=== PATIENT | male | born 1955 | race Caucasian/White ===

== ENCOUNTER 2023-12-24 06:30 | Day surgery (SDC) | payer MEDICARE, OTHER ==
[2023-12-24] MEDS ORDERED: IOPAMIDOL-370 50ML BTL ONE (08:20)
[2023-12-24] MEDS ORDERED: LACTATED RINGERS 1,000 ML BAG ONE (08:20)
[2023-12-24] MEDS ORDERED: DEXAMETHASONE SOD PHOSPHATE 4 MG/ML 1 ML VIAL ONE (08:43)
[2023-12-24] MEDS ORDERED: ONDANSETRON 4 MG/2 ML VIAL ONE (08:44)
[2023-12-24] MEDS ORDERED: fentaNYL (PF) 50 MCG/ML 2 ML AMP ONE (09:06)
[2023-12-24] MEDS ORDERED: ROCURONIUM 10 MG/ML (5 ML VIAL) IV ONE (09:06)
[2023-12-24] MEDS ORDERED: SUCCINYLCHOLINE CHLORIDE 200 MG/10 ML VIAL IV ONE (09:06)
[2023-12-24] MEDS ORDERED: PROPOFOL 10 MG/ML 20 ML VIAL IV ONE (09:06)
[2023-12-24] MEDS ORDERED: NEOSTIGMINE 1 MG/ML 10 ML VIAL ONE (09:06)
[2023-12-24] MEDS ORDERED: GLYCOPYRROLATE 0.2 MG/ML 2 ML VIAL ONE (09:06)
[2023-12-24] MEDS ORDERED: LIDOCAINE 1% INJ 10MG/ML (20 ML MDV) ONE (09:06)
[2023-12-24] MEDS ORDERED: PHENYLEPHRINE-0.9% NACL SYG 1,000 MCG/10 ML SYRINGE ONE (09:06)
--- NOTE | 2024-01-01 15:52 | HP ---
HISTORY AND PHYSICAL DATE OF OUTPATIENT SURGERY: 12/24/2023. CHIEF COMPLAINT: Gross hematuria. HISTORY OF PRESENT ILLNESS: The patient is a 68-year-old white male with intermittent gross hematuria, which he states occurs approximately every 2 months. He has a history of urolithiasis. CT scan shows left renal atrophy, possible bilateral hydronephrosis, and right bladder wall thickening. Cystoscopy revealed a partially-obstructing prostate, along with patchy erythema. Urine cytology showed rare atypical urothelial cells. PAST MEDICAL HISTORY: Type 2 diabetes mellitus, peripheral vascular disease, bilateral DVTs, GERD, asthma, history of MRSA, congestive heart failure, hypertension, depression, hyperlipidemia. MEDICATIONS: 1. Insulin. 2. Bethanechol 25 mg t.i.d. 3. Cyclobenzaprine 10 mg t.i.d. 4. Cymbalta 60 mg daily. 5. Eliquis 5 mg b.i.d. 6. Ferrous sulfate. 7. Fish oil. 8. Gabapentin 600 mg t.i.d. 9. [place] 10/325 p.r.n. 10.Lasix 60 mg daily. 11.Lipitor 20 mg daily. 12.Metformin 500 mg b.i.d. 13.Metoprolol 50 mg daily. 14.Milk of magnesia. 15.Ozempic. 16.Plavix 75 mg daily. 17.Protonix 40 mg daily. 18.Tylenol p.r.n. ALLERGIES: Iodine and shellfish. PAST SURGICAL HISTORY: Left gkqyl-hac-metx amputation, possible UroLift procedure. FAMILY HISTORY: Noncontributory. SOCIAL HISTORY: The patient resides at [facility]. REVIEW OF SYSTEMS: CARDIOVASCULAR: Significant for high blood pressure. GENITOURINARY: Denies dysuria, significant for hematuria. PHYSICAL EXAMINATION: GENERAL: The patient is a well-developed, well-nourished white male, in no apparent distress. VITAL SIGNS: Pulse 72, respirations 16, blood pressure 124/72. CHEST: Normal respiratory effort. ABDOMEN: Soft, nontender. GENITOURINARY: Normal external genitalia. IMPRESSION: Gross hematuria. PLAN: Cystoscopy with bladder biopsies, bilateral retrograde pyelogram, possible ureteroscopy, possible ureteral stent insertion. The procedure has been reviewed in detail with the patient. He has made aware of potential risks which include anesthesia, bleeding, infection, bladder perforation, and ureteral injury. MMODL / IJN: [id number] /
--- NOTE | 2024-01-01 15:54 | OP ---
OPERATIVE REPORT DATE OF SERVICE : 12/24/2023 PREOPERATIVE DIAGNOSIS: Hematuria. POSTOPERATIVE DIAGNOSES: 1. Hematuria. 2. Hydronephrosis. PROCEDURES PERFORMED: Cystoscopy, bilateral retrograde pyelograms, left ureteral stent insertion, bladder biopsies. ANESTHESIA: General. ESTIMATED BLOOD LOSS: 10 mL. FLUIDS GIVEN: 500 mL crystalloid. COMPLICATIONS: None. SPECIMEN REMOVED: Right posterior bladder wall biopsies. OPERATIVE FINDINGS: 1. Small capacity bladder with erythema noted on the right posterior bladder wall. 2. Qysx-ys-pasppphn left hydronephrosis. Possible left proximal ureteral stricture. 3. Marked right hydroureteronephrosis, which appears to be due to a small capacity bladder and vesicoureteral reflux. INDICATIONS: The patient is a 68-year-old white male, with recent hematuria. Cystoscopy has shown bladder erythema, and he now comes for further evaluation. DESCRIPTION OF PROCEDURE: The patient was taken to the operating room and placed in the dorsal lithotomy position, with his legs supported in Iglesia stirrups. The external genitalia were prepped and draped sterilely. The 30-degree lens was used to introduce the 22-[place] Kong[place] Storz cystoscopic sheath through the urethra and into the bladder under direct vision. The anterior urethra appeared normal. The prostatic urethra was unremarkable. Upon entering the bladder, the urine was noted to be cloudy. The bladder was irrigated several times. Slight oozing of the bladder wall was noted, predominantly from the right posterior bladder wall. The bladder was not trabeculated. No tumors or calculi were seen. With difficulty, the ureteral orifices were identified. Bilateral retrograde pyelograms were performed. The left retrograde pyelogram revealed a possible left proximal ureteral stricture, as well as possible filling defects within the left renal pelvis. There was evidence of qaxs-bf-gubenzzb left hydronephrosis, and the system drained poorly. The right retrograde pyelogram showed evidence of right hydroureteronephrosis down to the ureteral orifice. The right ureteral orifice was somewhat laterally displaced, and it is felt that the right hydronephrosis is due to a combination of a small capacity bladder and vesicoureteral reflux. A 0.035 inch Glidewire was passed through the cystoscope. The left ureteral orifice was cannulated, and the Glidewire was advanced up to the left renal pelvis. After placing the Glidewire, there was a "hydronephrotic dumont" as urine drained from the left kidney. A 26 cm, 6-H[place] Konger double J ureteral stent was placed over the wire. Proper stent positioning was verified fluoroscopically and endoscopically. Using the cold cup biopsy forceps, biopsies were obtained from the area of erythema on the right posterior bladder wall. The 8-Hong Konger Bugbee electrode was used to fulgurate the biopsy sites, attaining complete hemostasis. The bladder was emptied and the cystoscope was removed. The patient tolerated the procedure well and was taken to the recovery room in stable condition. MMODL / IJN: [id number] /
--- NOTE | 2024-02-11 10:36 | FL ---
EXAMINATION TYPE: FL urography retrograde DATE OF EXAM: 01/19/2024 8:27 AM COMPARISON: Pre Operative Images if available both CT/MRI or plain film CLINICAL INDICATION: Male, 68 years old with history of SHADI RENAL STONES IN OR; TECHNIQUE: FL urography retrograde, multiple fluoroscopic images provided for procedure. Total fluoroscopy time: 76 seconds Total submitted images to PACS: 6 DAP: 15.289 mGym2 Gycm2 uGym2 cGycm2 or equivalent. FINDINGS: Fluoroscopic images during retrograde pyelogram demonstrate contrast in the renal collecting system. There is dilation of the collecting system. No evidence of extravasation of contrast. No immediate co mplication identified. IMPRESSION: 1. No evidence for intraoperative complication. 2. Please see the operative/procedural note for further details. [facility], , 02/11/2024 10:33 AM
== END 2023-12-24 13:00 ==
LOC: OR 06:30
PROVIDERS: ATTEND Urology
DX: N30.21 Other chronic cystitis with hematuria (principal); N30.01 Acute cystitis with hematuria; N13.30 Unspecified hydronephrosis; K21.9 Gastro-esophageal reflux disease without esophagitis; J45.909 Unspecified asthma, uncomplicated; I11.0 Hypertensive heart disease with heart failure; I50.9 Heart failure, unspecified; F32.A Depression, unspecified; E78.5 Hyperlipidemia, unspecified; E11.51 Type 2 diabetes mellitus with diabetic peripheral angiopathy without gangrene; Z86.718 Personal history of other venous thrombosis and embolism; Z79.02 Long term (current) use of antithrombotics/antiplatelets; Z79.84 Long term (current) use of oral hypoglycemic drugs; Z79.899 Other long term (current) drug therapy; Z86.14 Personal history of Methicillin resistant Staphylococcus aureus infection; Z88.8 Allergy status to other drugs, medicaments and biological substances; Z91.041 Radiographic dye allergy status; Z89.612 Acquired absence of left leg above knee; Z87.442 Personal history of urinary calculi
CPT/HCPCS: 74420; 88307; 88311

== ENCOUNTER 2024-01-21 09:45 | Day surgery (SDC) | payer MEDICARE, OTHER ==
--- NOTE | 2024-01-21 06:45 | P.GSHP ---
History of Present Illness H&P Date: 01/21/24 Chief Complaint: Hematuria The patient is a 68-year-old white male with a history of urolithiasis. He has recently experienced intermittent gross hematuria. A CT scan was obtained, revealing left renal atrophy, possible bilateral hydronephrosis, and right sided bladder wall thickening. Urine cytology showed rare atypical cells. Cystoscopy showed a partially obstructing prostate with patchy bladder erythema. On December 23, he underwent cystoscopy with biopsy and fulguration, showing acute and chronic cystitis. The bladder capacity appeared to be small, and retrograde pyelograms showed bilateral hydronephrosis. On the right, this was presumed to be due to vesicoureteral reflux. On the left, there appeared to be ureteral strictures. A ureteral stent was placed. The hematuria appears to have improved following that procedure. - Constitutional Constitutional: Denies chills, Denies fever - Cardiovascular Cardiovascular: Reports high blood pressure - Gastrointestinal Gastrointestinal: Reports abdominal pain - Genitourinary (Male) Genitourinary: Reports hematuria, Denies dysuria Past Medical History Past Medical History: Asthma, Blood Disorder, Heart Failure, Dementia, Diabetes Mellitus, Deep Vein Thrombosis (DVT), GERD/Reflux, Hyperlipidemia, Hypertension, Liver Disease, Osteoarthritis (OA), Vascular Disorder Additional Past Medical History / Comment(s): AAA, iron def anemia, diverticulosis, fatty liver History of Any Multi-Drug Resistant Organisms: MRSA Date of last positivie culture/infection: 2023? MDRO Source:: right leg per 12/24/23 health hx Past Surgical History: Back Surgery, Hernia Repair, Orthopedic Surgery Additional Past Surgical History / Comment(s): cystoscopy & left ureteral stent 12/24/23; left above knee amputation, left hand surg, L4-L5 repair Past Anesthesia/Blood Transfusion Reactions: No Reported Reaction Additional Past Anesthesia/Blood Transfusion Reaction / Comment(s): caregiver not aware of any anesthesia problems for pt. Smoking Status: Former smoker Medications and Allergies Home Medications Medication Instructions Recorded Confirmed Type Acetaminophen Tab [Tylenol] 325 mg PO Q6H PRN 01/18/24 01/18/24 History Apixaban [Eliquis] 5 mg PO BID 01/18/24 01/18/24 History Atorvastatin [Lipitor] 20 mg PO DAILY 01/18/24 01/18/24 History Bethanechol Chloride 25 mg PO BID 01/18/24 01/18/24 History Clopidogrel [Plavix] 75 mg PO DAILY 01/18/24 01/18/24 History Cyclobenzaprine HCl 10 mg PO TID 01/18/24 01/18/24 History DULoxetine HCL [Cymbalta] 60 mg PO DAILY 01/18/24 01/18/24 History Daily Radha 1 tab PO DAILY 01/18/24 History Ferrous Sulfate [Feosol] 325 mg PO DAILY 01/18/24 01/18/24 History Fosfomycin Tromethamine 3 gm PO DAILY 01/18/24 01/18/24 History Furosemide [Lasix] 20 mg PO DAILY 01/18/24 01/18/24 History Furosemide [Lasix] 40 mg PO QAM 01/18/24 01/18/24 History Gabapentin 600 mg PO TID 01/18/24 01/18/24 History HYDROcodone/APAP 10-325MG [[place] 1 tab PO Q8HR PRN 01/18/24 01/18/24 History 10-325] Insulin Aspart (Niacinamide) 4 units SQ TID-W/MEALS 01/18/24 01/18/24 History [Fiasp 100 Unit/ml Vial] Insulin Glargine,Hum.rec.anlog 50 unit SQ BID 01/18/24 01/18/24 History [Basaglar Kwikpen U-100] Lactobacillus Acidophilus 1 each PO DAILY 01/18/24 01/18/24 History [Acidophilus] Magnesium Hydroxide [Milk of 30 ml PO DAILY PRN 01/18/24 01/18/24 History Magnesia Concentrate] Metoprolol Succinate (ER) [Toprol 50 mg PO DAILY 01/18/24 01/18/24 History Xl] Nystatin 100,000 Unit/gm Powd 1 applic TOPICAL BID 01/18/24 01/18/24 History [Mycostatin Powder] [place]-3/Dha/Epa/Fish Oil [Fish Oil 1 each PO BID 01/18/24 01/18/24 History 1,000 mg Softgel] Pantoprazole [Protonix] 40 mg PO DAILY 01/18/24 01/18/24 History Semaglutide [Ozempic] 0.5 mg SQ FR 01/18/24 01/18/24 History Zinc Gluconate [Zinc] 50 mg PO DAILY 01/18/24 01/18/24 History clindamycin HCL 300 mg PO TID 01/18/24 01/18/24 History metFORMIN HCL 1,000 mg PO BID 01/18/24 01/18/24 History Allergies Allergy/AdvReac Type Severity Reaction Status Date / Time amoxicillin [From Augmentin] Allergy Rash/Hives Verified 01/15/24 15:23 clavulanic acid Allergy Rash/Hives Verified 01/15/24 15:23 [From Augmentin] iodine AdvReac Unknown Verified 01/15/24 15:23 shellfish derived [Shellfish] AdvReac Unknown Verified 01/15/24 15:23 bees Allergy Rash/Hives Uncoded 01/15/24 15:23 tape AdvReac Unknown Uncoded 01/15/24 15:23 Surgical - Exam - General well developed, well nourished, no distress - Respiratory normal respiratory effort - Abdomen Abdomen: soft, non tender, no guarding, no rigid, no rebound - Genitourinary normal penis with no external lesions, testicles non-tender - Psychiatric oriented to time, oriented to person, oriented to place, speech is normal, memory intact Assessment and Plan (1) Hydronephrosis with ureteral stricture, not elsewhere classified Status: Acute Code(s): N13.1 - HYDRONEPHROSIS W URETERAL STRICTURE, NEC SNOMED Code(s): 30631234 Plan: Cystoscopy, left ureteroscopy with possible balloon dilation of a ureteral stricture, left ureteral stent change or removal. The rationale for this has been reviewed with the patient. He is aware of risks, which include anesthesia, bleeding, infection, and ureteral injury.
[~2024-01-21 09:45] MED LIST: DEXAMETHASONE SOD PHOSPHATE 4 MG/ML 1 ML VIAL IV ONE; HYDROmorphone 0.5 MG/0.5 ML SYRINGE IVP PRN; droPERidol 5 MG/2 ML VIAL IVP ONE
--- NOTE | 2024-01-21 10:13 | XR ---
EXAMINATION TYPE: XR KUB DATE OF EXAM: 01/21/2024 HISTORY: Pain Comparison: None.Single KUB is submitted for interpretation. Findings: Right renal calculi: 5.8 mm calculus upper pole right kidney. Right ureteral calculi: None Visualized. Left renal calculi: None Visualized. Left ureteral calculi: Double pigtail left-sided ureteral stent in place. No definite calculus along the course of the stent. Pelvic calcifications: None Visualized. Bowel gas pattern is unremarkable. No free air. No mass effects. IMPRESSION: 1. As above
[2024-01-21 10:40] LABS: Glucose,Whole Blood 179 mg/dL (70-110)
[2024-01-21] MEDS: IV FLUID CONTINUATION 1,000 ML IV ONE (10:51)
[2024-01-21] MEDS: FAMOTIDINE 20 MG/2 ML VIAL IV STA (10:56)
[2024-01-21] MEDS: LACTATED RINGERS 1,000 ML IV SCH (10:56)
[2024-01-21] MEDS: ONDANSETRON 4 MG/2 ML VIAL IVP ONE (10:56)
[2024-01-21] MEDS: IPRATROPIUM-ALBUTEROL 3 ML NEB INHALATION STA (10:57)
[2024-01-21] MEDS: METOCLOPRAMIDE 5 MG/ML 2 ML VIAL IVP STA (10:57)
[2024-01-21] MEDS ORDERED: NEOSTIGMINE 1 MG/ML 10 ML VIAL ONE (11:42)
[2024-01-21] MEDS ORDERED: fentaNYL (PF) 50 MCG/ML 2 ML AMP ONE (11:42)
[2024-01-21] MEDS ORDERED: LIDOCAINE 1% INJ 10MG/ML (20 ML MDV) ONE (11:42)
[2024-01-21] MEDS ORDERED: GLYCOPYRROLATE 0.2 MG/ML 2 ML VIAL ONE (11:42)
[2024-01-21] MEDS ORDERED: VASOPRESSIN 20 UNIT/ML 1 ML VIAL ONE (11:42)
[2024-01-21] MEDS ORDERED: ROCURONIUM 10 MG/ML (5 ML VIAL) IV ONE (11:42)
[2024-01-21] MEDS ORDERED: SUCCINYLCHOLINE CHLORIDE 200 MG/10 ML VIAL IV ONE (11:42)
[2024-01-21] MEDS ORDERED: ePHEDrine 50 MG/ML 1 ML VIAL ONE (11:42)
[2024-01-21] MEDS ORDERED: PHENYLEPHRINE 10 MG/ML VIAL ONE (11:42)
[2024-01-21] MEDS ORDERED: PROPOFOL 10 MG/ML 20 ML VIAL IV ONE (11:42)
[2024-01-21] MEDS: LACTATED RINGERS 1,000 ML IV ONE (12:42)
[2024-01-21 13:38] VITALS: TEMP 97.5
[2024-01-21 14:30] VITALS: RESP 20
--- NOTE | 2024-01-21 14:34 | P.OP ---
Date of Procedure: 01/21/24 Preoperative Diagnosis: Left hydronephrosis, hematuria Postoperative Diagnosis: Left hydronephrosis, hematuria, left ureteral tumor Procedure(s) Performed: Cystoscopy, left ureteral stent removal, left ureteroscopy with biopsy Anesthesia: ALYSSA Surgeon: Vinay Delgado Estimated Blood Loss (ml): 5 IV fluids (ml): 1,300 Pathology: other (Biopsy left mid ureter) Condition: stable Disposition: PACU Indications for Procedure: The patient is a 68-year-old white male with a history of urolithiasis. He has recently experienced intermittent gross hematuria. A CT scan was obtained, revealing left renal atrophy, possible bilateral hydronephrosis, and right sided bladder wall thickening. Urine cytology showed rare atypical cells. Cystoscopy showed a partially obstructing prostate with patchy bladder erythema. On December 23, he underwent cystoscopy with biopsy and fulguration, showing acute and chronic cystitis. The bladder capacity appeared to be small, and retrograde pyelograms showed bilateral hydronephrosis. On the right, this was presumed to be due to vesicoureteral reflux. On the left, there appeared to be ureteral strictures. A ureteral stent was placed. The hematuria appears to have improved following that procedure. Operative Findings: Left mid ureteral lesion, question reactive versus malignant, at the level of L4. Description of Procedure: The patient was taken to the operating room and placed in the dorsolithotomy position, with legs supported in Iglesia stirrups. The external genitalia was prepped and draped sterilely. The 30 lens was used to introduce the 21-[place] Meeks cystoscopic sheath through the urethra and into the bladder under direct vision. The prostatic urethra showed evidence of mild lateral lobe enlargement. The bladder was examined in its entirety. No abnormalities were seen. Delayed healing was seen at the previous biopsy site. Grasping forceps were used to grasp the distal end of the left ureteral stent, which was removed along with the cystoscope. A 0.035 inch Glidewire was passed through the stent and up to the left renal pelvis. The stent was removed, and the Olympus flexible ureteroscope was passed over the wire, up to the left renal pelvis. Each calyx was examined. No tumors or calculi were seen. There was evidence of hydronephrosis. The ureteroscope was slowly withdrawn under direct vision. 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 Piranha forceps were passed through the ureteroscope, and the lesion was excised. The tissue was saved and sent to pathology. The ureter was then inspected. Subtle mucosal changes were seen immediately adjacent to the lesion. There was no active bleeding, and no evidence of ureteral perforation. The ureter appeared to be of normal caliber. The ureteroscope was withdrawn under direct vision, and no other abnormalities were seen. The patient tolerated the procedure well and was taken to the recovery room in stable condition.
[2024-01-21 14:57] VITALS: BP 144/74; PULSE 91
[2024-01-26 13:02] LABS: Glucose,Whole Blood 170 mg/dL (70-110)
--- NOTE | 2024-02-11 10:36 | FL ---
EXAMINATION TYPE: FL guidance operating room DATE OF EXAM: 01/21/2024 1:12 PM COMPARISON: Pre Operative Images if available both CT/MRI or plain film CLINICAL INDICATION: Male, 68 years old with history of LEFT HYDRONEPHROSIS; TECHNIQUE: FL guidance operating room, multiple fluoroscopic images provided for procedure. Total fluoroscopy time: 54 seconds Total submitted images to PACS: 1 DAP: [id number] mGym2 Gycm2 uGym2 cGycm2 or equivalent. FINDINGS: Multiple intraoperative fluoroscopic images were taken resulting in removal of left ureteral stent. N o immediate intraoperative complication. Multilevel degeneration changes throughout the spine. IMPRESSION: 1. No evidence for intraoperative complication. 2. Please see the operative/procedural note for further details. [facility], , 02/11/2024 10:33 AM
== END 2024-01-21 15:35 ==
LOC: OR 09:45
PROVIDERS: ATTEND Urology
DX: N13.1 Hydronephrosis with ureteral stricture, not elsewhere classified (principal); N28.89 Other specified disorders of kidney and ureter; R31.0 Gross hematuria; E11.9 Type 2 diabetes mellitus without complications; E78.5 Hyperlipidemia, unspecified; F03.90 Unspecified dementia, unspecified severity, without behavioral disturbance, psychotic disturbance, mood disturbance, and anxiety; I11.0 Hypertensive heart disease with heart failure; I50.9 Heart failure, unspecified; J45.909 Unspecified asthma, uncomplicated; K21.9 Gastro-esophageal reflux disease without esophagitis; K76.0 Fatty (change of) liver, not elsewhere classified; M19.90 Unspecified osteoarthritis, unspecified site; Z87.442 Personal history of urinary calculi; Z79.01 Long term (current) use of anticoagulants; Z79.02 Long term (current) use of antithrombotics/antiplatelets; Z79.4 Long term (current) use of insulin; Z79.84 Long term (current) use of oral hypoglycemic drugs; Z86.718 Personal history of other venous thrombosis and embolism; Z87.891 Personal history of nicotine dependence; Z88.0 Allergy status to penicillin; Z88.1 Allergy status to other antibiotic agents; Z88.8 Allergy status to other drugs, medicaments and biological substances; Z91.030 Bee allergy status; Z91.041 Radiographic dye allergy status; Z98.890 Other specified postprocedural states; Z79.899 Other long term (current) drug therapy
CPT/HCPCS: 88305; 74018; 52354; C1769; J0330; J2710; J2765; J0690; J2405; J2001; J3010; J3490; J2704; J2371; J1596

== ENCOUNTER 2024-11-18 04:41 | Inpatient (IN) | payer MEDICARE, OTHER ==
[2024-11-18] MEDS: NOREPINEPHRINE 32 MG in SODIUM CHLORIDE 0.9% 218 ML IV SCH (05:03)
[2024-11-18] MEDS ORDERED: VANCOMYCIN IV PER PHARMACY 1 EACH MISC MISCELLANE PRN (05:18)
[2024-11-18 05:23] LABS: Basophils # (A) 0.07 10*3/uL (0.00-0.10); Basophils % (A) 0.5 %; Eosinophils # (A) 0.00 10*3/uL (0.04-0.35); Eosinophils % (A) 0.0 %; HCT 47.1 % (39.6-50.0); HGB 15.6 g/dL (13.0-17.0); Lymphocytes # (A) 0.36 10*3/uL (0.90-5.00); Lymphocytes % (A) 2.4 %; MCH 30.5 pg (27.0-32.0); MCHC 33.1 g/dL (32.0-37.0); MCV 92.2 fL (80.0-97.0); Monocytes # (A) 0.47 10*3/uL (0.20-1.00); Monocytes % (A) 3.2 %; Neutrophils # (A) 13.81 10*3/uL (1.80-7.70); Neutrophils % (A) 93.6 %; Platelet Count 193 10*3/uL (140-440); RBC 5.11 10*6/uL (4.40-5.60); RDW 14.6 % (11.5-14.5); WBC 14.76 10*3/uL (4.50-10.00)
--- NOTE | 2024-11-18 05:32 | ED ---
General Adult HPI - General Chief complaint: Altered Mental Status Stated complaint: AMS Time Seen by Provider: 11/18/24 04:41 Source: patient, RN/MD, EMS, RN notes reviewed, old records reviewed Mode of arrival: EMS - History of Present Illness Initial comments: 69-year-old male who presents to the emergency department complaining of altered mentation. Originally presented to [facility]. He has a history of type 2 diabetes, PAD/PVD status post left AKA, hypertension, CKD with cellulitis of the right lower extremity. At outside facility, patient was diagnosed with sepsis from his right lower extremity cellulitis. He had an elevated white blood cell count, elevated lactic acid. He did present febrile. His mental status did improve after treatment however patient became hypotensive and required vasopressor therapy. Right IJ central line placed at outside facility and patient was started on norepinephrine. Presents for admission to ICU for septic shock from source of right lower extremity cellulitis. Patient was initiated on vancomycin and Zosyn at the outside facility. At the outside facility, they provided 2-1/2 L of IV fluids. Patient presents for further evaluation at this time. Is ANO x 4. - Related Data Home Medications Medication Instructions Recorded Confirmed Acetaminophen Tab [Tylenol] 325 mg PO Q6H PRN 01/18/24 01/21/24 Apixaban [Eliquis] 5 mg PO BID 01/18/24 01/21/24 Bethanechol Chloride 25 mg PO BID 01/18/24 01/21/24 Clopidogrel [Plavix] 75 mg PO DAILY 01/18/24 01/21/24 Cyclobenzaprine HCl 10 mg PO TID 01/18/24 01/21/24 Daily Radha 1 tab PO DAILY 01/18/24 01/21/24 Ferrous Sulfate [Feosol] 325 mg PO DAILY 01/18/24 01/21/24 Fosfomycin Tromethamine 3 gm PO DAILY 01/18/24 01/21/24 Furosemide [Lasix] 40 mg PO QAM 01/18/24 01/21/24 Gabapentin 600 mg PO TID 01/18/24 01/21/24 HYDROcodone/APAP 10-325MG [[place] 1 tab PO Q8HR PRN 01/18/24 01/21/24 10-325] Insulin Aspart (Niacinamide) 4 units SQ TID-W/MEALS 01/18/24 01/21/24 [Fiasp 100 Unit/ml Vial] Insulin Glargine,Hum.rec.anlog 50 unit SQ BID 01/18/24 01/21/24 [Basaglar Kwikpen U-100] Lactobacillus Acidophilus 1 each PO DAILY 01/18/24 01/21/24 [Acidophilus] Magnesium Hydroxide [Milk of 30 ml PO DAILY PRN 01/18/24 01/21/24 Magnesia Concentrate] Metoprolol Succinate (ER) [Toprol 50 mg PO DAILY 01/18/24 01/21/24 Xl] Nystatin 100,000 Unit/gm Powd 1 applic TOPICAL BID 01/18/24 01/21/24 [Mycostatin Powder] [place]-3/Dha/Epa/Fish Oil [Fish Oil 1 each PO BID 01/18/24 01/21/24 1,000 mg Softgel] Pantoprazole [Protonix] 40 mg PO DAILY 01/18/24 01/21/24 Semaglutide [Ozempic] 0.5 mg SQ FR 01/18/24 01/21/24 Zinc Gluconate [Zinc] 50 mg PO DAILY 01/18/24 01/21/24 clindamycin HCL 300 mg PO TID 01/18/24 01/21/24 metFORMIN HCL 1,000 mg PO BID 01/18/24 01/21/24 Atorvastatin [Lipitor] 20 mg PO DAILY 01/21/24 01/21/24 DULoxetine HCL [Cymbalta] 30 mg PO DAILY 01/21/24 01/21/24 Allergies Allergy/AdvReac Type Severity Reaction Status Date / Time amoxicillin [From Augmentin] Allergy Rash/Hives Verified 11/18/24 04:46 clavulanic acid Allergy Rash/Hives Verified 11/18/24 04:46 [From Augmentin] iodine AdvReac Unknown Verified 11/18/24 04:46 shellfish derived [Shellfish] AdvReac Unknown Verified 11/18/24 04:46 bees Allergy Rash/Hives Uncoded 11/18/24 04:46 tape AdvReac Unknown Uncoded 11/18/24 04:46 Review of Systems ROS Statement: Those systems with pertinent positive or pertinent negative responses have been documented in the HPI. Review of Systems: CONST: Denies fever EYES: Denies blurry vision ENT: Denies nasal congestion C/V: Denies Chest pain RESP: Denies shortness of breath GI: Denies abdominal pain : Denies dysuria SKIN: Denies rash. MSK: Endorses right leg pain NEURO: Denies headache ROS Other: All systems not noted in ROS Statement are negative. Past Medical History Past Medical History: Asthma, Blood Disorder, Heart Failure, Dementia, Diabetes Mellitus, Deep Vein Thrombosis (DVT), GERD/Reflux, Hyperlipidemia, Hypertension, Liver Disease, Osteoarthritis (OA), Vascular Disorder Additional Past Medical History / Comment(s): AAA, iron def anemia, diverticulosis, fatty liver History of Any Multi-Drug Resistant Organisms: MRSA Date of last positivie culture/infection: 2023? MDRO Source:: right leg per 12/24/23 health hx Past Surgical History: Back Surgery, Hernia Repair, Orthopedic Surgery Additional Past Surgical History / Comment(s): cystoscopy & left ureteral stent 12/24/23; left above knee amputation, left hand surg, L4-L5 repair Past Anesthesia/Blood Transfusion Reactions: No Reported Reaction Additional Past Anesthesia/Blood Transfusion Reaction / Comment(s): caregiver not aware of any anesthesia problems for pt. Past Psychological History: Anxiety, Depression Smoking Status: Former smoker General Exam - General Exam Comments Initial Comments: General: Appears in no acute distress. HEAD: Normal with no signs of head trauma. EYES: PERRLA, EOMI, conjunctiva normal, no discharge. ENT: Hearing grossly intact, normal oropharynx. RESPIRATORY: Clear breath sounds bilaterally. No wheezes, rales, or rhonchi. C/V: Regular rate and rhythm. S1 and S2 auscultated. Right lower extremity peripheral pulses reduced secondary to chronic peripheral vascular disease. ABD: Abd is soft, nontender, nondistended EXT: Right lower extremity cellulitis. Left lower extremity AKA. SKIN: Erythema with warmth and open wounds over the anterior right jansen. Suspicious for cellulitis and infection. NEURO: Alert and oriented x 4. Cranial nerves II-XII intact. No focal sensory or strength deficits. Course Vital Signs 11/18/24 11/18/24 11/18/24 04:44 05:00 05:15 Temperature 98.2 F 98.4 F Pulse Rate 98 96 96 Respiratory 22 22 20 Rate Blood Pressure 87/48 93/62 86/62 O2 Sat by Pulse 96 98 98 Oximetry 07/04/0411/18/24 11/18/24 05:30 05:45 06:00 Temperature 98.6 F Pulse Rate 97 94 92 Respiratory 20 20 20 Rate Blood Pressure 98/58 119/70 106/75 O2 Sat by Pulse 98 98 98 Oximetry 11/18/24 06:36 Temperature Pulse Rate 93 Respiratory 20 Rate Blood Pressure 90/43 O2 Sat by Pulse 98 Oximetry Medical Decision Making - Medical Decision Making Was pt. sent in by a medical professional or institution (, PA, HAND [employer]NEL [employer]ATER, urgent care, hospital, or fci...) When possible be specific @ -Patient transferred from [facility] for ICU admission. Did you speak to anyone other than the patient for history (EMS, parent, family, police, friend...)? What history was obtained from this source @ -No Did you review nursing and triage notes (agree or disagree)? Why? @ -I reviewed and agree with nursing and triage notes Were old charts reviewed (outside hosp., previous admission, EMS record, old EKG, old radiological studies, urgent care reports/EKG's, fci records)? Report findings @ -Reviewed chart from [facility] which shows the hypotension, increasing lactic acidosis, as well as findings concerning for sepsis. CT brain was obtained there which showed no obvious acute intracranial process. Chest x-ray showed no obvious acute process. CT abdomen pelvis revealed a uncompl icated AAA. Right lower extremity CT shows no evidence of osteomyelitis. Differential Diagnosis (chest pain, altered mental status, abdominal pain women, abdominal pain men, vaginal bleeding, weakness, fever, dyspnea, syncope, headache, dizziness, GI bleed, back pain, seizure, CVA, palpatations, mental health, musculoskeletal)? @ -Sepsis, septic shock, cellulitis, this list is not all-inclusive. EKG interpreted by me (3pts min.). @ -As above X-rays interpreted by me (1pt min.). @ -Chest x-ray as interpreted by myself reveals adequate placement of central line with some mild pulmonary vascular congestion versus possible left lower lung infiltrate. CT interpreted by me (1pt min.). @ -None done U/S interpreted by me (1pt. min.). @ -None done What testing was considered but not performed or refused? (CT, X-rays, U/S, labs)? Why? @ -None What meds were considered but not given or refused? Why? @ -None Did you discuss the management of the patient with other professionals (professionals i.e. DrAngel, PA, [employer]ATER, lab, RT, psych nurse, social studies teacher, digital advertising specialist, teacher, chief scientific officer, oil field caser)? Give summary @ -Discussed with ICU attending Dr. Garcia who accepted the patient to the ICU. Discussed with the admitting team, STUART RUCKER who accepted the patient. Was smoking cessation discussed for >3mins.? @ -No Was critical care preformed (if so, how long)? @ -Yes, 31 minutes. Were there social determinants of health that impacted care today? How? (Homelessness, low income, unemployed, alcoholism, drug addiction, transportation, low edu. Level, literacy, decrease access to med. care, residential, rehab)? @ -No Was there de-escalation of care discussed even if they declined (Discuss DNR or withdrawal of care, Hospice)? DNR status @ -No What co-morbidities impacted this encounter? (DM, HTN, Smoking, COPD, CAD, Cancer, CVA, ARF, Chemo, Hep., AIDS, mental health diagnosis, sleep apnea, morbid obesity)? @ -None Was patient admitted / discharged? Hospital course, mention meds given and route, prescriptions, significant lab abnormalities, going to OR and other pertinent info. @ -Patient presents for septic shock from outside facility. Started on pressors. Patient does have an allergy to amoxicillin and patient was given Zosyn at outside facility. I will switch this antibiotic to cefepime in addition to IV vancomycin. Will continue with IV fluids as well as IV Levophed. Patient will be admitted to the ICU. Patient was in agreement this plan. Vital signs remarkable for borderline blood pressures upon arrival with the Levophed on at 87/48 with maps greater than 65. Will repeat some laboratory studies. Patient in agreement this plan. EKG shows no signs of acute ischemia. Chest x-ray shows possible pneumonia versus CHF with adequate placement of the right IJ. Labs redemonstrate leukocytosis.Laboratory y studies returned remarkable also for worsening renal function with creatinine of 2.46. Magnesium is low is 1.5 which is replenished. It is elevated which is likely secondary to underlying pathology however we will trend it. Patient given 324 mg of aspirin and cardiology consulted. Echo ordered. Discussed with ICU attending Dr. Garcia who accepted the patient to the ICU. Discussed with the admitting team, Perla RUCKER who accepted the patient. Undiagnosed new problem with uncertain prognosis? @ -No Drug Therapy requiring intensive monitoring for toxicity (Heparin, Nitro, Insulin, Cardizem)? @ -No Were any procedures done? @ -No Diagnosis/symptom? @ -Septic shock secondary to right lower extremity cellulitis, NIURKA Acute, or Chronic, or Acute on Chronic? @ -Acute Uncomplicated (without systemic symptoms) or Complicated (systemic symptoms)? @ -Complicated Side effects of treatment? @ -No Exacerbation, Progression, or Severe Exacerbation? @ -No Poses a threat to life or bodily function? How? (Chest pain, USA, CT, pneumonia, PE, COPD, DKA, ARF, appy, cholecystitis, CVA, Diverticulitis, Homicidal, Suicidal, threat to staff... and all critical care pts) @ -Yes - Lab Data Result diagrams: 11/18/24 05:11 11/18/24 05:11 Lab Results 11/18/24 11/18/24 11/18/24 Range/Units 05:11 05:11 05:11 WBC 14.76 H (4.50-10.00) 10*3/uL RBC 5.11 (4.40-5.60) 10*6/uL Hgb 15.6 (13.0-17.0) g/dL Hct 47.1 (39.6-50.0) % MCV 92.2 (80.0-97.0) fL MCH 30.5 (27.0-32.0) pg MCHC 33.1 (32.0-37.0) g/dL Plt Count 193 (140-440) 10*3/uL MPV 9.5 (9.5-12.2) fL Immature Gran % (Auto) 0.3 % Neutrophils % 93.6 % Lymphocytes % 2.4 % Monocytes % 3.2 % Eosinophils % 0.0 % Basophils % 0.5 % Immature Gran # 0.05 H (0.00-0.04) 10*3/uL Neutrophils # 13.81 H (1.80-7.70) 10*3/uL Lymphocytes # 0.36 L (0.90-5.00) 10*3/uL Monocytes # 0.47 (0.20-1.00) 10*3/uL Eosinophils # 0.00 L (0.04-0.35) 10*3/uL Basophils # 0.07 (0.00-0.10) 10*3/uL Sodium 136 L (137-145) mmol/L Potassium 4.6 (3.5-5.1) mmol/L Chloride 105 (98-107) mmol/L Carbon Dioxide 22 (22-30) mmol/L Anion Gap 9 mmol/L BUN 34 H (9-20) mg/dL Creatinine 2.46 H (0.66-1.25) mg/dL Est GFR (CKD-EPI)AfAm 30 (>60 ml/min/1.73 sqM) Est GFR (CKD-EPI)NonAf 26 (>60 ml/min/1.73 sqM) Glucose 93 (74-99) mg/dL Plasma Lactic Acid Agustín 1.9 (0.7-2.0) mmol/L Calcium 9.0 (8.4-10.2) mg/dL Magnesium 1.5 L (1.6-2.3) mg/dL Total Bilirubin 0.6 (0.2-1.3) mg/dL AST 42 (17-59) U/L ALT 31 (4-49) U/L Alkaline Phosphatase 36 L (38-126) U/L Total Protein 6.3 (6.3-8.2) g/dL Albumin 3.3 L (3.5-5.0) g/dL - EKG Data -: EKG Interpreted by Me EKG Comments: 12-lead Electrocardiogram Interpretation Note EKG was reviewed and interpreted by myself. 12-lead ECG performed at 0508 is interpreted by me as revealing normal sinus rhythm at a rate of 96 beats per minute. [place] is normal. MI interval is 153 ms, QRS duration is 94 ms, QTc is 423 ms.. There were no ST or T wave abnormalities to suggest myocardial ischemia or injury. R wave progression across the precordium was satisfactory. By my interpretation this EKG is non-diagnostic for acute ischemia. Critical Care Time Critical Care Time: Yes Total Critical Care Time: 31 Disposition Clinical Impression: Septic shock, NIURKA (acute kidney injury), Cellulitis, Elevated troponin Disposition: ADMITTED IP TO THIS [facility] Condition: Serious Time of Disposition: 05:32
--- NOTE | 2024-11-18 05:34 | XR ---
EXAMINATION TYPE: XR chest 1V portable DATE OF EXAM: 11/18/2024 COMPARISON: NONE CLINICAL INDICATION: Male, 69 years old with history of sepsis, central line; TECHNIQUE: Single frontal semiupright view of the chest is obtained. FINDINGS: There is new right internal jugular central venous catheter terminating in right atrium. No pneumothorax is evident. Low lung volumes are present. There is left basilar opacity seen. The card iac silhouette size is is upper limits of normal. The osseous structures are intact. IMPRESSION: As above. [facility], Workstation: [facility], 11/18/2024 5:31 AM
[2024-11-18] MEDS ORDERED: NALOXONE 0.4 MG/ML 1 ML VIAL IV PRN (05:38)
[2024-11-18 05:57] LABS: ALT 31 U/L (4-49); AST 42 U/L (17-59); African American GFR (CKD) 30 (>60 ml/min/1.73 sqM); Albumin 3.3 g/dL (3.5-5.0); Alkaline Phosphatase 36 U/L (38-126); Anion Gap 9 mmol/L; Blood Urea Nitrogen 34 mg/dL (9-20); Calcium 9.0 mg/dL (8.4-10.2); Carbon Dioxide 22 mmol/L (22-30); Chloride 105 mmol/L (98-107); Glucose 93 mg/dL (74-99); Magnesium 1.5 mg/dL (1.6-2.3); Non-African American GFR(CKD) 26 (>60 ml/min/1.73 sqM); Potassium 4.6 mmol/L (3.5-5.1); Sodium 136 mmol/L (137-145); Total Protein 6.3 g/dL (6.3-8.2)
[2024-11-18] MEDS: CEFEPIME 2 GM in SODIUM CHLORIDE 0.9% 100 ML IVPB ONE (05:58)
[2024-11-18] MEDS: VANCOMYCIN 1,500 MG in SODIUM CHLORIDE 0.9% 500 ML 500 ML IVPB ONE (06:03)
[2024-11-18] MEDS: CEFEPIME 1 GM in SODIUM CHLORIDE 0.9% 50 ML IVPB SCH ×2 (06:18→06:38)
[2024-11-18] MEDS: LACTATED RINGERS 1,000 ML IV SCH (06:19)
[2024-11-18] MEDS: MAGNESIUM SULFATE-D5W PMX 1 GM in DEXTROSE/WATER 1 100ML.BAG IVPB ONE (07:02)
[2024-11-18] MEDS: ASPIRIN 81 MG PO STA (07:43)
[2024-11-18] MEDS: MORPHINE SULFATE 2 MG/ML SYRINGE IV PRN (07:43)
[2024-11-18] MEDS ORDERED: CEFEPIME 2 GM in SODIUM CHLORIDE 0.9% 100 ML IVPB SCH (08:00)
[2024-11-18] MEDS ORDERED: ARTIFICIAL TEARS-HYPROMELLOSE DROPS 15 ML BTL BOTH EYES PRN (11:39)
[2024-11-18] MEDS ORDERED: DEXTROSE 50% SYRINGE 50 ML IVP PRN ×2 (11:44)
[2024-11-18 12:21] LABS: Glucose,Whole Blood 261 mg/dL (70-110)
--- NOTE | 2024-11-18 12:29 | P.CNPUL ---
History of Present Illness Consult date: 11/18/24 Requesting physician: Malvin Warner Reason for consult: other Chief complaint: Sepsis. History of present illness: Pulmonary consult dated November 18, 2024. 69-year-old male seen today in the emergency department, room 6. The patient was transferred down from an outside hospital. He apparently came in with weakness, mental status changes, and possible sepsis. He apparently has a history of diabetes, peripheral vascular disease, with a left AKA, hypertension, chronic kidney disease, and cellulitis of the right lower extremity. He apparently was seen at the outside facility and diagnosed with sepsis secondary to right lower extremity cellulitis. The patient's white count was elevated as well as his lactic acid. The patient became hypotensive, and was transferred down to this institution. A central line was placed. In the emergency department, he is currently on 2 L, with a saturation 98%. He is getting lactated Ringer's at 130 cc an hour, he is currently on cefepime and vancomycin, and is getting norepinephrine at 0.04 mcg/kg/min. White count is 14.8, hemoglobin 15.6, macro 47.1, platelet count 193,000. Sodium 136, potassium 4.6, chlorides 105, CO2 22, anion gap 9, BUN 34, and creatinine 2.46. Glucose is 261. Troponins were 0.116 and 0.080. Chest x-ray shows a properly placed central line, and a possible infiltrate or atelectasis at the left base. Review of Systems REVIEW OF SYSTEMS: Mental status changes. CONSTITUTIONAL: Weakness. NEUROLOGIC: [ Negative.] HEENT: [ Negative.] CARDIAC: Hypotension. PULMONARY: [Negative.] GI: [Negative.] : [Negative.] RHEUMATOLOGIC: [ Negative.] IMMUNOLOGIC: [ Negative.] ENDOCRINE: [Negative. ] DERMATOLOGIC: [Negative.] Past Medical History Past Medical History: Asthma, Blood Disorder, Heart Failure, Dementia, Diabetes Mellitus, Deep Vein Thrombosis (DVT), GERD/Reflux, Hyperlipidemia, Hypertension, Liver Disease, Osteoarthritis (OA), Vascular Disorder Additional Past Medical History / Comment(s): AAA, iron def anemia, diverticulosis, fatty liver History of Any Multi-Drug Resistant Organisms: MRSA Date of last positivie culture/infection: 2023? MDRO Source:: right leg per 12/24/23 health hx Past Surgical History: Back Surgery, Hernia Repair, Orthopedic Surgery Additional Past Surgical History / Comment(s): cystoscopy & left ureteral stent 12/24/23; left above knee amputation, left hand surg, L4-L5 repair Past Anesthesia/Blood Transfusion Reactions: No Reported Reaction Additional Past Anesthesia/Blood Transfusion Reaction / Comment(s): caregiver not aware of any anesthesia problems for pt. Past Psychological History: Anxiety, Depression Smoking Status: Former smoker Medications and Allergies Home Medications Medication Instructions Recorded Confirmed Type Acetaminophen Tab [Tylenol] 650 mg PO BID@1200,209901/18/24 11/18/24 History Apixaban [Eliquis] 5 mg PO BID@1200,1700 01/18/24 11/18/24 History Bethanechol Chloride 25 mg PO TID@1100,1700,209901/18/24 11/18/24 History Clopidogrel [Plavix] 75 mg PO DAILY@1200 01/18/24 11/18/24 History Daily Radha 1 tab PO DAILY 01/18/24 11/18/24 History Ferrous Sulfate [Feosol] 325 mg PO DAILY 01/18/24 11/18/24 History Furosemide [Lasix] 40 mg PO DAILY@1200 01/18/24 11/18/24 History Gabapentin 600 mg PO BID@1100,17001/18/24 11/18/24 History HYDROcodone/APAP 10-325MG [[place] 1 tab PO Q8HR PRN 01/18/24 11/18/24 History 10-325] Insulin Aspart (Niacinamide) 4 units SQ TID@1100,1700,209901/18/24 11/18/24 History [Fiasp 100 Unit/ml Vial] Magnesium Hydroxide [Milk of 30 ml PO DAILY PRN 01/18/24 11/18/24 History Magnesia Concentrate] Metoprolol Succinate (ER) [Toprol 50 mg PO DAILY@109901/18/24 11/18/24 History Xl] [place]-3/Dha/Epa/Fish Oil [Fish Oil 1 cap PO BID@1200,209901/18/24 11/18/24 History 1,000 mg Softgel] Pantoprazole [Protonix] 40 mg PO DAILY@1100 01/18/24 11/18/24 History Semaglutide [Ozempic] 0.5 mg SQ FR@169901/18/24 11/18/24 History Zinc Gluconate [Zinc] 50 mg PO DAILY@1200 01/18/24 11/18/24 History metFORMIN HCL 1,000 mg PO BID@1200,1700 01/18/24 11/18/24 History Acetaminophen [Tylenol] 650 mg PO Q4H PRN 11/18/24 11/18/24 History Biotene Dry Mouth/Throat Lozenge 1 lozenge PO DIRECTED PRN 11/18/24 11/18/24 History Dextran/Hypromellose/Glycerin 1 drop BOTH EYES Q2H PRN 11/18/24 11/18/24 History [Genteal Tears 0.1%-0.2%-0.3%] Eucerin Plus Lotion 1 applic TOPICAL BID 11/18/24 11/18/24 History Fenofibrate Nanocrystallized 145 mg PO HS 11/18/24 11/18/24 History [Tricor] Furosemide [Lasix] 20 mg PO DAILY@1700 11/18/24 11/18/24 History Insulin Degludec [Insulin Degludec 65 units SQ BID@1200,199911/18/24 11/18/24 History Pen (U-100)] Melatonin 5 mg PO HS 11/18/24 11/18/24 History Menthol [Biofreeze] 1 applic TOPICAL Q8H PRN 11/18/24 11/18/24 History carvediloL [Coreg] 6.25 mg PO BID@1200,1700 11/18/24 11/18/24 History Allergies Allergy/AdvReac Type Severity Reaction Status Date / Time bee venom protein (honey bee) Allergy Unknown Unknown Verified 11/18/24 10:31 amoxicillin [From Augmentin] Allergy Rash/Hives Verified 11/18/24 10:31 clavulanic acid Allergy Rash/Hives Verified 11/18/24 10:31 [From Augmentin] iodine Allergy Unknown Verified 11/18/24 10:31 shellfish derived [Shellfish] Allergy Unknown Verified 11/18/24 10:31 tape Allergy Unknown Uncoded 11/18/24 10:31 Physical Exam Osteopathic Statement: *. No significant issues noted on an osteopathic structural exam other than those noted in the History and Physical/Consult. Vitals: Vital Signs Temp Pulse Resp BP Pulse Ox 11/18/24 11:22 94 18 121/70 96 11/18/24 10:53 93 18 126/68 96 11/18/24 10:17 97.8 F 93 20 123/62 96 11/18/24 10:00 96 18 140/80 96 11/18/24 09:00 97 18 115/59 96 11/18/24 08:00 93 18 111/58 96 11/18/24 07:20 96 18 109/61 96 11/18/24 06:36 93 20 90/43 98 11/18/24 06:00 98.6 F 92 20 106/75 98 11/18/24 05:45 94 20 119/70 98 11/18/24 05:30 97 20 98/58 98 11/18/24 05:15 98.4 F 96 20 86/62 98 11/18/24 05:00 96 22 93/62 98 11/18/24 04:44 98.2 F 98 22 87/48 96 Intake and Output 11/17/24 11/18/24 11/18/24 22:59 06:59 14:59 Intake Total 2.077 7.830 Balance 2.077 7.830 Intake: Intake, IV Titration 2.077 7.830 Amount Norepinephrine 32 mg In 2.077 7.830 Sodium Chloride 0.9% 218 ml @ 0.03 MCG/KG/MIN 1.34 mls/hr IV .Q24H COUNT INCLUDES THE [facility] Rx#: [id number] Other: Weight 95.254 kg No acute distress, confused, rambling on, currently on 2 L nasal cannula. Speech is a bit garbled. Patient not able to give much history. HEENT examination is grossly unremarkable. Mucous membranes are moist. No oral lesions. Neck supple. Full range of motion. No adenopathy thyromegaly or neck vein distention. Right internal jugular central line. Cardiovascular examination reveals regular rhythm rate. S1-S2 normal. No S3 or S4. No discernible murmur noted. Heart sounds are distant. Lungs reveal clear breath sounds. Breath sounds are equal bilaterally. No adventitious lung sounds including wheezes rhonchi or crackles. Abdomen soft bowel sounds are heard. No masses or tenderness. Extremities are intact. No cyanosis clubbing or edema. Left epyjp-eag-fqks amputation. Right lower extremity cellulitis. Skin is without rash or lesion. Neurologic examination is brief but nonfocal. Results - Laboratory Findings CBC and BMP: 11/18/24 05:11 11/18/24 05:11 Abnormal lab findings: Abnormal Labs 11/18/24 11/18/24 11/18/24 05:11 05:11 05:40 WBC 14.76 H Immature Gran # 0.05 H Neutrophils # 13.81 H Lymphocytes # 0.36 L Eosinophils # 0.00 L Sodium 136 L BUN 34 H Creatinine 2.46 H POC Glucose (mg/dL) Magnesium 1.5 L Alkaline Phosphatase 36 L Troponin I 0.116 H* Albumin 3.3 L 11/18/24 11/18/24 09:34 12:19 WBC Immature Gran # Neutrophils # Lymphocytes # Eosinophils # Sodium BUN Creatinine POC Glucose (mg/dL) 261 H Magnesium Alkaline Phosphatase Troponin I 0.080 H* Albumin - Diagnostic Findings Chest x-ray: image reviewed Assessment and Plan Assessment: Right lower extremity cellulitis, with resultant sepsis, and hypotension. History of congestive heart failure. History of hypertension. History of hyperlipidemia. History of diabetes mellitus. History of dementia. History of deep vein thrombosis. Left acstg-upd-esgu amputation. Diverticular disease. Prior history of methicillin-resistant Staph aureus infection. Multiple other medical problems and comorbidities. Plan: Plan dated November 18, 2024. The patient is seen in the emergency department, room 6. The patient is currently on norepinephrine at 0.04 mcg/kg/min. He was started on cefepime and vancomycin. He is on 2 L, with saturations of 98%. He is getting lactated Ringer's at 130 cc an hour. All labs, x-rays, and medications are reviewed. We will continue to follow the patient, make recommendations along the way. The patient will be admitted to the ICU, for further monitoring and management. Prognosis is guarded. Dictation was produced using [employer] software. Please excuse any grammatical, word or spelling errors. Time with Patient: Greater than 30
[2024-11-18] MEDS: ZINC SULFATE 220 MG CAP PO SCH (12:52)
[2024-11-18] MEDS: CLOPIDOGREL 75 MG TAB PO SCH (12:52)
[2024-11-18] MEDS: APIXABAN 5 MG TAB PO SCH (12:52)
[2024-11-18] MEDS: HYDROcodone/APAP 10-325MG 1 EACH TAB PO PRN (12:52)
[2024-11-18] MEDS: INSULIN GLARGINE (LANTUS) 100 UNIT/ML SYR SQ SCH (12:53)
[2024-11-18] MEDS: INSULIN LISPRO (HumaLOG) 100 UNIT/ML 10 mL VL SQ SCH (12:53)
[2024-11-18 17:16] LABS: Glucose,Whole Blood 194 mg/dL (70-110)
[2024-11-18] MEDS: ACETAMINOPHEN TAB 325 MG TAB PO PRN (18:07)
[2024-11-18] MEDS: BETHANECHOL 25 MG TAB PO SCH (18:08)
--- NOTE | 2024-11-18 18:09 | CA ---
Transthoracic Echo Report Name: Cullen Campos Age: 69 Gender: M : 1955 Exam Date: 11/18/2024 08:33 Exam Location: [facility] Ht (in): 70 Wt (lb): 210 Ordering Physician: Elio Blevins MD Attending/Referring Phys: Clerical Stock Inspector Quan Tong RDCS Procedure CPT: Indications: sepsis, elevated troponin Cardiac Hx: done by Lindsey Rueda Technical Quality: Technically difficult study Contrast 1: Definity Total Dose (mL): 2 Contrast 2: Total Dose (mL): MEASUREMENTS (Male / Female) Normal Values 2D ECHO LV Diastolic Diameter PLAX 4.9 cm 4.2 - 5.9 / 3.9 - 5.3 cm LV Systolic Diameter PLAX 4.2 cm IVS Diastolic Thickness 1.1 cm 0.6 - 1.0 / 0.6 - 0.9 cm LVPW Diastolic Thickness 1.1 cm 0.6 - 1.0 / 0.6 - 0.9 cm LV Relative Wall Thickness 0.5 RV Internal Dim ED PLAX 3.1 cm LVOT Diameter 2.3 cm LA Systolic Diameter LX 3.2 cm 3.0 - 4.0 / 2.7 - 3.8 cm LV Diastolic Volume MOD BP 127.6 cm??? 67 - 155 / 56 - 104 cm??? LV Systolic Volume MOD BP 70.6 cm??? 22 - 58 / 19 - 49 cm??? LV Ejection Fraction MOD BP 44.7 % >= 55 % LV Cardiac Index MOD BP 2419.1 cm???/min???m??? LV Diastolic Volume MOD 4C 114.5 cm??? LV Systolic Volume MOD 4C 66.6 cm??? LV Ejection Fraction MOD 4C 41.9 % LV Cardiac Index MOD 4C 2032.0 cm???/min???m??? LV Diastolic Length 4C 8.5 cm LV Systolic Length 4C 8.1 cm LV Diastolic Volume MOD 2C 129.9 cm??? LV Systolic Volume MOD 2C 74.5 cm??? LV Ejection Fraction MOD 2C 42.7 % LV Cardiac Index MOD 2C 2350.9 cm???/min???m??? LV Diastolic Length 2C 9.4 cm LV Systolic Length 2C 8.1 cm LA Volume 43.6 cm??? 18 - 58 / 22 - 52 cm??? LA Volume Index 19.9 cm???/m??? 16 - 28 cm???/m??? M-MODE Aortic Root Diameter MM 4.0 cm AV Cusp Separation MM 2.5 cm DOPPLER AV Peak Velocity 98.9 cm/s AV Peak Gradient 3.9 mmHg LVOT Peak Velocity 76.1 cm/s LVOT Peak Gradient 2.3 mmHg AV Area Cont Eq pk 3.2 cm??? MV Area PHT 7.9 cm??? Mitral E Point Velocity 82.2 cm/s Mitral A Point Velocity 81.4 cm/s Mitral E to A Ratio 1.0 MV Deceleration Time 96.1 ms FINDINGS Left Ventricle Left ventricular ejection fraction is estimated at 40-45 %. Mildly increased septal wall thickness. Mildly increased left ventricular systolic volume. Moderately decreased left ventricular ejection fraction. Noted regional wall motion abnormalities. Right Ventricle Right ventricular dilatation. Hypokinetic right ventricular free wall. Right Atrium Normal right atrial size. No right atrial thrombus or mass seen. Left Atrium Normal left atrial size. No left atrial thrombus or mass present. Mitral Valve Thickened mitral valve without stenosis. Trace to mild mitral regurgitation. Mitral annular calcification. Aortic Valve Trileaflet aortic valve.thickened aortic valve without stenosis. No aortic regurgitation. Tricuspid Valve Tricuspid valve not well visualized. No tricuspid regurgitation. Pulmonic Valve Pulmonic valve not well visualized. No pulmonic regurgitation. Pericardium No pericardial or pleural effusion. Echo free space anterior to the right ventricle likely represents a fat pad. Aorta Mild aortic dilatation at the level of the sinuses of valsalva (root). Normal proximal ascending aorta. CONCLUSIONS Reason: Abnormal troponins Reduced LV systolic function ejection fraction 40 to 45% Mildly enlarged right ventricle Previewed by: Dr. Abran Uribe MD (Electronically Signed) Final Date: 18 November 2024 18:08
[2024-11-18 20:01] LABS: Glucose,Whole Blood 223 mg/dL (70-110)
[2024-11-18] MEDS: FENOFIBRATE 160 MG TAB PO SCH (20:21)
[2024-11-18] MEDS: MELATONIN 5 MG TABLET PO SCH (20:21)
--- NOTE | 2024-11-18 23:00 | P.CONS ---
History of Present Illness - Reason for Consult Consult date: 11/18/24 Septic shock, cellulitis Requesting physician: Elio Blevins - Chief Complaint Right leg pain swelling redness x days - History of Present Illness Patient is a 69-year-old male with a past medical history significant for Asthma, Blood Disorder, Heart Failure, Dementia, Diabetes Mellitus, Deep Vein Thrombosis (DVT), GERD/Reflux, Hyperlipidemia, Hypertension, Liver Disease, Osteoarthritis (OA), Vascular Disorder previous history of left rbzmk-sji-tbrf amputation has been brought to the hospital for evaluation of altered mentation patient initially presented to [facility] concerning for increasing swelling redness of the right lower extremity patient has been diagnosed with sepsis from right lower leg cellulitis as the patient did have a fever elevated white count elevated lactic acid patient did have a double-lumen right IJ catheter placement at that facility subsequently patient be transferred to the hospital for further evaluation on presentation this visit the patient was afebrile no fever Hemoccult subsequently patient was tachycardic but not hypotensive mildly hypoxic currently on a 2 L nasal cannula oxygen patient did have a elevated white count 14.76 did have elevated BUN and creatinine troponin is mildly elevated patient has been started on cefepime and vancomycin infectious disease was consulted for further management of antibiotic therapy patient was not a very good historian however has been complaining of some swelling redness pain to the right leg that has been going on for more than a week. Denies any history of any trauma pain is mostly dull aching mild to moderate intense without radiation denies any skin breakdown or any drainage and no fall Review of Systems Positive point and negatives has been mentioned in the HPI, complete review of systems was performed and all other systems are negative Past Medical History Past Medical History: Asthma, Blood Disorder, Heart Failure, Dementia, Diabetes Mellitus, Deep Vein Thrombosis (DVT), GERD/Reflux, Hyperlipidemia, Hypertension, Liver Disease, Osteoarthritis (OA), Vascular Disorder Additional Past Medical History / Comment(s): AAA, iron def anemia, diverticulosis, fatty liver History of Any Multi-Drug Resistant Organisms: MRSA Year Discovered:: 2023? MDRO Source:: right leg per 12/24/23 health hx Past Surgical History: Back Surgery, Hernia Repair, Orthopedic Surgery Additional Past Surgical History / Comment(s): cystoscopy & left ureteral stent 12/24/23; left above knee amputation, left hand surg, L4-L5 repair Past Anesthesia/Blood Transfusion Reactions: No Reported Reaction Additional Past Anesthesia/Blood Transfusion Reaction / Comm: caregiver not aware of any anesthesia problems for pt. Past Psychological History: Anxiety, Depression Smoking Status: Former smoker Medications and Allergies Home Medications Medication Instructions Recorded Confirmed Type Acetaminophen Tab [Tylenol] 650 mg PO BID@1200,209901/18/24 11/18/24 History Apixaban [Eliquis] 5 mg PO BID@1200,169901/18/24 11/18/24 History Bethanechol Chloride 25 mg PO TID@1100,170,209901/18/24 11/18/24 History Clopidogrel [Plavix] 75 mg PO DAILY@119901/18/24 11/18/24 History Daily Radha 1 tab PO DAILY 01/18/24 11/18/24 History Ferrous Sulfate [Feosol] 325 mg PO DAILY 01/18/24 11/18/24 History Furosemide [Lasix] 40 mg PO DAILY@119901/18/24 11/18/24 History Gabapentin 600 mg PO BID@1100,169901/18/24 11/18/24 History HYDROcodone/APAP 10-325MG [[place] 1 tab PO Q8HR PRN 01/18/24 11/18/24 History 10-325] Insulin Aspart (Niacinamide) 4 units SQ TID@1100,170,209901/18/24 11/18/24 History [Fiasp 100 Unit/ml Vial] Magnesium Hydroxide [Milk of 30 ml PO DAILY PRN 01/18/24 11/18/24 History Magnesia Concentrate] Metoprolol Succinate (ER) [Toprol 50 mg PO DAILY@109901/18/24 11/18/24 History Xl] [place]-3/Dha/Epa/Fish Oil [Fish Oil 1 cap PO BID@1200,209901/18/24 11/18/24 History 1,000 mg Softgel] Pantoprazole [Protonix] 40 mg PO DAILY@109901/18/24 11/18/24 History Semaglutide [Ozempic] 0.5 mg SQ FR@169901/18/24 11/18/24 History Zinc Gluconate [Zinc] 50 mg PO DAILY@119901/18/24 11/18/24 History metFORMIN HCL 1,000 mg PO BID@1200,169901/18/24 11/18/24 History Acetaminophen [Tylenol] 650 mg PO Q4H PRN 11/18/24 11/18/24 History Biotene Dry Mouth/Throat Lozenge 1 lozenge PO DIRECTED PRN 11/18/24 11/18/24 History Dextran/Hypromellose/Glycerin 1 drop BOTH EYES Q2H PRN 11/18/24 11/18/24 History [Genteal Tears 0.1%-0.2%-0.3%] Eucerin Plus Lotion 1 applic TOPICAL BID 11/18/24 11/18/24 History Fenofibrate Nanocrystallized 145 mg PO HS 11/18/24 11/18/24 History [Tricor] Furosemide [Lasix] 20 mg PO DAILY@1700 11/18/24 11/18/24 History Insulin Degludec [Insulin Degludec 65 units SQ BID@1200,2000 11/18/24 11/18/24 H istory Pen (U-100)] Melatonin 5 mg PO HS 11/18/24 11/18/24 History Menthol [Biofreeze] 1 applic TOPICAL Q8H PRN 11/18/24 11/18/24 History carvediloL [Coreg] 6.25 mg PO BID@1200,1700 11/18/24 11/18/24 History Allergies Allergy/AdvReac Type Severity Reaction Status Date / Time bee venom protein (honey bee) Allergy Unknown Unknown Verified 11/18/24 10:31 amoxicillin [From Augmentin] Allergy Rash/Hives Verified 11/18/24 10:31 clavulanic acid Allergy Rash/Hives Verified 11/18/24 10:31 [From Augmentin] iodine Allergy Unknown Verified 11/18/24 10:31 shellfish derived [Shellfish] Allergy Unknown Verified 11/18/24 10:31 tape Allergy Unknown Uncoded 11/18/24 10:31 Physical Exam Vitals: Vital Signs Temp Pulse Resp BP Pulse Ox 11/18/24 11:22 94 18 121/70 96 11/18/24 10:53 93 18 126/68 96 11/18/24 10:17 97.8 F 93 20 123/62 96 11/18/24 10:00 96 18 140/80 96 11/18/24 09:00 97 18 115/59 96 11/18/24 08:00 93 18 111/58 96 11/18/24 07:20 96 18 109/61 96 11/18/24 06:36 93 20 90/43 98 11/18/24 06:00 98.6 F 92 20 106/75 98 11/18/24 05:45 94 20 119/70 98 11/18/24 05:30 97 20 98/58 98 11/18/24 05:15 98.4 F 96 20 86/62 98 11/18/24 05:00 96 22 93/62 98 11/18/24 04:44 98.2 F 98 22 87/48 96 Intake and Output 11/17/24 11/18/24 11/18/24 22:59 06:59 14:59 Intake Total 2.077 7.830 Balance 2.077 7.830 Intake: Intake, IV Titration 2.077 7.830 Amount Norepinephrine 32 mg In 2.077 7.830 Sodium Chloride 0.9% 218 ml @ 0.03 MCG/KG/MIN 1.34 mls/hr IV .Q24H [facility] Rx#: [id number] Other: Weight 95.254 kg GENERAL DESCRIPTION: Elderly male lying in bed, no distress. No tachypnea or ac cessory muscle of respiration use. HEENT: Shows Pallor , no scleral icterus. Oral mucous membrane is dry. NECK: Trachea central, no thyromegaly. LUNGS: Unlabored breathing. Clear to auscultation anteriorly. No wheeze or crackle. HEART: S1, S2, regular rate and rhythm. No loud murmur ABDOMEN: Soft, no tenderness , guarding or rigidity, no organomegaly EXTREMITIES: Right lower extremity diffuse swelling and redness no skin breakdown or purulent drainage was noticed SKIN: No rash, no masses palpable. NEUROLOGICAL: The patient is awake, alert, mood and affect normal. Results CBC & Chem 7: 11/19/24 06:21 11/19/24 06:21 Labs: Abnormal Lab Results - Last 24 Hours (Table) 11/18/24 11/18/24 11/18/24 Range/Units 05:11 05:11 05:40 WBC 14.76 H (4.50-10.00) 10*3/uL Immature Gran # 0.05 H (0.00-0.04) 10*3/uL Neutrophils # 13.81 H (1.80-7.70) 10*3/uL Lymphocytes # 0.36 L (0.90-5.00) 10*3/uL Eosinophils # 0.00 L (0.04-0.35) 10*3/uL Sodium 136 L (137-145) mmol/L BUN 34 H (9-20) mg/dL Creatinine 2.46 H (0.66-1.25) mg/dL Magnesium 1.5 L (1.6-2.3) mg/dL Alkaline Phosphatase 36 L (38-126) U/L Troponin I 0.116 H* (0.000-0.034) ng/mL Albumin 3.3 L (3.5-5.0) g/dL 11/18/24 Range/Units 09:34 WBC (4.50-10.00) 10*3/uL Immature Gran # (0.00-0.04) 10*3/uL Neutrophils # (1.80-7.70) 10*3/uL Lymphocytes # (0.90-5.00) 10*3/uL Eosinophils # (0.04-0.35) 10*3/uL Sodium (137-145) mmol/L BUN (9-20) mg/dL Creatinine (0.66-1.25) mg/dL Magnesium (1.6-2.3) mg/dL Alkaline Phosphatase (38-126) U/L Troponin I 0.080 H* (0.000-0.034) ng/mL Albumin (3.5-5.0) g/dL Assessment and Plan (1) Sepsis Current Visit: Yes Status: Acute Code(s): A41.9 - SEPSIS, UNSPECIFIED ORGANISM SNOMED Code(s): 97255267 (2) Cellulitis of right leg Current Visit: Yes Status: Acute Code(s): L03.115 - CELLULITIS OF RIGHT LOWER LIMB SNOMED Code(s): 58465303491573271 (3) Penicillin allergy Current Visit: Yes Status: Acute Code(s): Z88.0 - ALLERGY STATUS TO PENICILLIN SNOMED Code(s): 32537182 (4) Elevated serum creatinine Current Visit: Yes Status: Acute Code(s): R79.89 - OTHER SPECIFIED ABNORMAL FINDINGS OF BLOOD CHEMISTRY SNOMED Code(s): 594462652 Plan: 1patient presented to hospital with sepsis in this patient who did have fever tachycardia elevated white count elevated lactic acid meeting currently for SIRS/sepsis source likely right lower extremity cellulitis in this patient did have a history of left lower extremity infection requiring left kyfst-rlf-ojmn amputation will need to cover for the resistant gram-positive as well as gram- negative pathogen 2-patient did have penicillin allergy that will limit the number of antibiotics safe to use 3-elevated creatinine high risk of nephrotoxicity. 4-patient is currently being treated cefepime and vancomycin however will monitor his kidney function closely and if any worsening we will switch him over to daptomycin We will follow on clinical condition and cultures to further adjust medication if needed Thank you for this consultation we will follow the patient along with you Dictation was produced using [employer] dictation software. please excuse any grammatical, word or spelling errors. Time with Patient: Greater than 30
[2024-11-19] MEDS: ACETAMINOPHEN IV (For NPO) 1,000 MG in EMPTY BAG 1 BAG IVPB PRN (00:08)
[2024-11-19 06:02] LABS: Glucose,Whole Blood 109 mg/dL (70-110)
[2024-11-19 07:31] LABS: Glucose,Whole Blood 115 mg/dL (70-110)
[2024-11-19 07:37] LABS: Basophils # (A) 0.04 10*3/uL (0.00-0.10); Basophils % (A) 0.4 %; Eosinophils # (A) 0.14 10*3/uL (0.04-0.35); Eosinophils % (A) 1.5 %; HCT 34.4 % (39.6-50.0); Lymphocytes # (A) 0.86 10*3/uL (0.90-5.00); Lymphocytes % (A) 9.1 %; MCH 30.4 pg (27.0-32.0); MCHC 32.6 g/dL (32.0-37.0); MCV 93.2 fL (80.0-97.0); Monocytes # (A) 0.41 10*3/uL (0.20-1.00); Monocytes % (A) 4.4 %; Neutrophils # (A) 7.93 10*3/uL (1.80-7.70); Neutrophils % (A) 84.3 %; Platelet Count 253 10*3/uL (140-440); RBC 3.69 10*6/uL (4.40-5.60); RDW 15.1 % (11.5-14.5); WBC 9.41 10*3/uL (4.50-10.00)
[2024-11-19 07:38] LABS: HGB 11.2 g/dL (13.0-17.0)
[2024-11-19] MEDS: FUROSEMIDE 10 MG/ML 4 ML VIAL IV STA (07:40)
[2024-11-19 07:58] LABS: ALT 35 U/L (4-49); AST 47 U/L (17-59); African American GFR (CKD) 43 (>60 ml/min/1.73 sqM); Albumin 3.4 g/dL (3.5-5.0); Alkaline Phosphatase 48 U/L (38-126); Anion Gap 10 mmol/L; Blood Urea Nitrogen 25 mg/dL (9-20); Calcium 9.0 mg/dL (8.4-10.2); Carbon Dioxide 19 mmol/L (22-30); Chloride 106 mmol/L (98-107); Glucose 99 mg/dL (74-99); Non-African American GFR(CKD) 38 (>60 ml/min/1.73 sqM); Potassium 4.5 mmol/L (3.5-5.1); Sodium 135 mmol/L (137-145); Total Protein 6.5 g/dL (6.3-8.2)
--- NOTE | 2024-11-19 08:27 | XR ---
EXAMINATION TYPE: XR chest 1V portable DATE OF EXAM: 11/19/2024 COMPARISON: 11/18/2024 CLINICAL INDICATION: Male, 69 years old with history of Resp distress; TECHNIQUE: Single frontal view of the chest is obtained. FINDINGS: There is significant interval worsening in the diffuse predominantly interstitial opacity w ith mild cardiomegaly. Findings are most consistent with worsening CHF. There is no large pleural effusion. There is no pneumothorax. There is no change in the right jugular central venous catheter tip. The osseous structures are intact. IMPRESSION: Interval worsening in the acute cardiopulmonary process most consistent with CHF [facility], , 11/19/2024 8:25 AM
[2024-11-19] MEDS: hydrALAZINE HCL 20 MG/ML 1 ML VIAL IVP PRN (08:28)
[2024-11-19 08:36] LABS: ABG HCO3 23 mmol/L (21-25); ABG PCO2 52 mmHg (35-45); ABG PH 7.26 (7.35-7.45); ABG PO2 66 mmHg (83-108); ABG TCO2 25 mmol/L (19-24); Allen Test Performed? Yes
[2024-11-19] MEDS: VANCOMYCIN 1,500 MG in SODIUM CHLORIDE 0.9% 500 ML 500 ML IVPB ONE (08:41)
--- NOTE | 2024-11-19 09:08 | XR ---
Abdomen HISTORY: Decreased bowel sounds abdominal distention. COMPARISON: None TECHNIQUE: 2 supine views of the abdomen were obtained. FINDINGS: The bowel gas pattern is nonspecific and there is no evidence of obstruction. There are no suspicious abdominal or pelvic calcifications. The osseous structures are grossly intact. There is degenerative there is mild multilevel degenerativ e disease in the lumbar spine. IMPRESSION: Nonspecific abdomen without evidence of obstruction. [facility], , 11/19/2024 9:06 AM
--- NOTE | 2024-11-19 11:07 | P.PN ---
Subjective Progress Note Date: 11/19/24 Principal diagnosis: Cellulitis, sepsis. Pulmonary consult dated November 18, 2024. 69-year-old male seen today in the emergency department, room 6. The patient was transferred down from an outside hospital. He apparently came in with weakness, mental status changes, and possible sepsis. He apparently has a history of diabetes, peripheral vascular disease, with a left AKA, hypertension, chronic kidney disease, and cellulitis of the right lower extremity. He apparently was seen at the outside facility and diagnosed with sepsis secondary to right lower extremity cellulitis. The patient's white count was elevated as well as his lactic acid. The patient became hypotensive, and was transferred down to this institution. A central line was placed. In the emergency depart ment, he is currently on 2 L, with a saturation 98%. He is getting lactated Ringer's at 130 cc an hour, he is currently on cefepime and vancomycin, and is getting norepinephrine at 0.04 mcg/kg/min. White count is 14.8, hemoglobin 15.6, macro 47.1, platelet count 193,000. Sodium 136, potassium 4.6, chlorides 105, CO2 22, anion gap 9, BUN 34, and creatinine 2.46. Glucose is 261. Troponins were 0.116 and 0.080. Chest x-ray shows a properly placed central line, and a possible infiltrate or atelectasis at the left base. Progress note dated November. 69-year-old male who was seen yesterday in consultation in the emergency department. He was shipped down from an outside hospital, for sepsis, secondary to cellulitis of the right leg, with hypotension, requiring norepinephrine. The patient was seen in the emergency department, and was on a small dose of norepinephrine, and it was weaned off, and the patient was downgraded to the general medical floor. This morning, he apparently developed some respiratory distress. The charge nurse in the ICU went up on the rapid response team, thought that the patient would benefit from BiPAP, and Lasix. That was given. In addition, blood gas was done. The patient is seen in room 375. He continues on BiPAP, with settings of 14/7 and 80%. A Ott catheter was placed. A blood gas was done and Lasix was given. He continues on vancomycin and cefepime for the cellulitis. Blood gases show pO2 of 66, pCO2 52, and a pH of 7.25. Will check a procalcitonin level, and an N-terminal proBNP. White count was 9.4, hemoglobin 11.2, hematocrit 34.4, platelet count 253,000. Sodium 135, potassium 4.5, chlorides 106, CO2 19, anion gap 10, BUN 25, creatinine 1.80. Glucose is 115. Albumin 3.4. N-terminal proBNP was quite elevated at 7290. Objective - Vital Signs Vital signs: Vital Signs Temp 100.3 F H 11/19/24 07:28 Pulse 159 H 11/19/24 08:01 Resp 36 H 11/19/24 08:01 BP 219/126 11/19/24 08:01 Pulse Ox 88 L 11/19/24 08:01 FiO2 100 11/19/24 08:32 Intake & Output 11/18/24 11/19/24 11/19/24 18:59 06:59 18:59 Intake Total 8.270 Output Total 850 385 Balance 8.270 -850 -385 Weight 95.5 kg Intake: Intake, IV Titration 8.270 Amount Norepinephrine 32 mg In 8.270 Sodium Chloride 0.9% 218 ml @ 0.03 MCG/KG/MIN 1.34 mls/hr IV .Q24H [facility] Rx#: [id number] Output: Urine 850 385 Uretheral (Ott) 385 - Exam No acute distress, currently on BiPAP, having received some Ativan. HEENT examination is grossly unremarkable. Mucous membranes are moist. No oral lesions. Neck supple. Full range of motion. No adenopathy thyromegaly or neck vein distention. Cardiovascular examination reveals regular rhythm rate. S1-S2 normal. No S3 or S4. No discernible murmur noted. Heart sounds are very distant. Lungs reveal bilateral rhonchi and crackles. Breath sounds are equal. No wheezes. Abdomen soft bowel sounds are heard. No masses or tenderness. Extremities reveals a left pqhfe-oos-hphd amputation. Right lower extremity has evidence of cellulitis. Skin reveals cellulitis of the right lower extremity. Neurologic examination is brief but nonfocal. - Labs CBC & Chem 7: 11/19/24 06:21 11/19/24 06:21 Labs: Abnormal Lab Results - Last 24 Hours (Table) 11/18/24 11/18/24 11/18/24 Range/Units 09:34 11:47 12:19 RBC (4.40-5.60) 10*6/uL Hgb (13.0-17.0) g/dL Hct (39.6-50.0) % Neutrophils # (1.80-7.70) 10*3/uL Lymphocytes # (0.90-5.00) 10*3/uL Sodium (137-145) mmol/L Carbon Dioxide (22-30) mmol/L BUN (9-20) mg/dL Creatinine (0.66-1.25) mg/dL POC Glucose (mg/dL) 261 H (70-110) mg/dL Troponin I 0.080 H* 0.067 H* (0.000-0.034) ng/mL Albumin (3.5-5.0) g/dL 11/18/24 11/18/24 11/19/24 Range/Units 17:14 20:00 06:21 RBC 3.69 L (4.40-5.60) 10*6/uL Hgb 11.2 L D (13.0-17.0) g/dL Hct 34.4 L (39.6-50.0) % Neutrophils # 7.93 H (1.80-7.70) 10*3/uL Lymphocytes # 0.86 L (0.90-5.00) 10*3/uL Sodium (137-145) mmol/L Carbon Dioxide (22-30) mmol/L BUN (9-20) mg/dL Creatinine (0.66-1.25) mg/dL POC Glucose (mg/dL) 194 H 223 H (70-110) mg/dL Troponin I (0.000-0.034) ng/mL Albumin (3.5-5.0) g/dL 11/19/24 11/19/24 Range/Units 06:21 07:29 RBC (4.40-5.60) 10*6/uL Hgb (13.0-17.0) g/dL Hct (39.6-50.0) % Neutrophils # (1.80-7.70) 10*3/uL Lymphocytes # (0.90-5.00) 10*3/uL Sodium 135 L (137-145) mmol/L Carbon Dioxide 19 L (22-30) mmol/L BUN 25 H (9-20) mg/dL Creatinine 1.80 H (0.66-1.25) mg/dL POC Glucose (mg/dL) 115 H (70-110) mg/dL Troponin I (0.000-0.034) ng/mL Albumin 3.4 L (3.5-5.0) g/dL Assessment and Plan Assessment: Right lower extremity cellulitis, with resultant sepsis, and hypotension. History of congestive heart failure, with acute worsening, secondary to fluid administration. History of hypertension. History of hyperlipidemia. History of diabetes mellitus. History of dementia. History of deep vein thrombosis. Left vmnyy-dpf-mygz amputation. Diverticular disease. Prior history of methicillin-resistant Staph aureus infection. Multiple other medical problems and comorbidities. Plan: Plan dated November 18, 2024. The patient is seen in the emergency department, room 6. The patient is currently on norepinephrine at 0.04 mcg/kg/min. He was started on cefepime and vancomycin. He is on 2 L, with saturations of 98%. He is getting lactated Ringer's at 130 cc an hour. All labs, x-rays, and medications are reviewed. We will continue to follow the patient, make recommendations along the way. The patient will be admitted to the ICU, for further monitoring and management. Prognosis is guarded. Dictation was produced using [employer] software. Please excuse any grammatical, word or spelling errors. Plan dated November 19, 2024. The patient was seen today in room 375. He is currently on BiPAP, with settings of 14/7 and 80%. Blood gases show pO2 of 66, pCO2 of 52, pH is 7.25. That was before the BiPAP was placed. His procalcitonin level is pending. BNP was quite high. The patient received Lasix, a Ott catheter, and continues on vancomycin and cefepime for cellulitis. All labs, x-rays, medications are reviewed. We will continue to follow the patient, make recommendations along the way. Prognosis is guarded. Should the patient deteriorate, he will have to be transferred to the intensive care unit. Dictation was produced using [employer] software. Please excuse any grammatical, word or spelling errors. Time with Patient: Less than 30
[2024-11-19 11:24] LABS: Glucose,Whole Blood 184 mg/dL (70-110)
--- NOTE | 2024-11-19 12:21 | P.NPCON ---
History of Present Illness - Reason for Consult Consult date: 11/19/24 - Chief Complaint AMS - History of Present Illness Patient is a 69-year-old male brought to the hospital for evaluation of altered mentation patient initially presented to [facility] concerning for increasing swelling redness of the right lower extremity patient has been diagnosed with sepsis from right lower leg cellulitis. The patient became hypotensive, and was transferred down to this institution. Patient is poor historian and history mainly obtained from chart. Seen this morning on Bipap due to hypoxia. Denies any complaints. Wants Bipap off. GENERAL: no distress. on Bipap LUNGS: Unlabored breathing. Clear to auscultation anteriorly. No wheeze or crackle. HEART: S1, S2, regular rate and rhythm. No loud murmur ABDOMEN: Soft, no tenderness , guarding or rigidity EXTREMITIES: Right lower extremity diffuse swelling and redness no skin breakdown or purulent drainage was noticed SKIN: No rash, no masses palpable. Review of Systems ROS unobtainable: due to mental status Past Medical History Past Medical History: Asthma, Blood Disorder, Heart Failure, Dementia, Diabetes Mellitus, Deep Vein Thrombosis (DVT), GERD/Reflux, Hyperlipidemia, Hypertension, Liver Disease, Osteoarthritis (OA), Vascular Disorder Additional Past Medical History / Comment(s): AAA, iron def anemia, diverticulosis, fatty liver History of Any Multi-Drug Resistant Organisms: MRSA Date of last positivie culture/infection: 2023? MDRO Source:: right leg per 12/24/23 health hx Past Surgical History: Back Surgery, Hernia Repair, Orthopedic Surgery Additional Past Surgical History / Comment(s): cystoscopy & left ureteral stent 12/24/23; left above knee amputation, left hand surg, L4-L5 repair Past Anesthesia/Blood Transfusion Reactions: No Reported Reaction Additional Past Anesthesia/Blood Transfusion Reaction / Comment(s): caregiver not aware of any anesthesia problems for pt. Past Psychological History: Anxiety, Depression Smoking Status: Former smoker Medications and Allergies Home Medications Medication Instructions Recorded Confirmed Type Acetaminophen Tab [Tylenol] 650 mg PO BID@1200,2100 01/18/24 11/18/24 History Apixaban [Eliquis] 5 mg PO BID@1200,1700 01/18/24 11/18/24 History Bethanechol Chloride 25 mg PO TID@1100,1700,2100 01/18/24 11/18/24 History Clopidogrel [Plavix] 75 mg PO DAILY@1200 01/18/24 11/18/24 History Daily Radha 1 tab PO DAILY 01/18/24 11/18/24 History Ferrous Sulfate [Feosol] 325 mg PO DAILY 01/18/24 11/18/24 History Furosemide [Lasix] 40 mg PO DAILY@1200 01/18/24 11/18/24 History Gabapentin 600 mg PO BID@1100,1700 01/18/24 11/18/24 History HYDROcodone/APAP 10-325MG [[place] 1 tab PO Q8HR PRN 01/18/24 11/18/24 History 10-325] Insulin Aspart (Niacinamide) 4 units SQ TID@1100,1700,209901/18/24 11/18/24 History [Fiasp 100 Unit/ml Vial] Magnesium Hydroxide [Milk of 30 ml PO DAILY PRN 01/18/24 11/18/24 History Magnesia Concentrate] Metoprolol Succinate (ER) [Toprol 50 mg PO DAILY@1100 01/18/24 11/18/24 History Xl] Liscomb-3/Dha/Epa/Fish Oil [Fish Oil 1 cap PO BID@1200,2100 01/18/24 11/18/24 History 1,000 mg Softgel] Pantoprazole [Protonix] 40 mg PO DAILY@1100 01/18/24 11/18/24 History Semaglutide [Ozempic] 0.5 mg SQ FR@1700 01/18/24 11/18/24 History Zinc Gluconate [Zinc] 50 mg PO DAILY@1200 01/18/24 11/18/24 History metFORMIN HCL 1,000 mg PO BID@1200,1700 01/18/24 11/18/24 History Acetaminophen [Tylenol] 650 mg PO Q4H PRN 11/18/24 11/18/24 History Biotene Dry Mouth/Throat Lozenge 1 lozenge PO DIRECTED PRN 11/18/24 11/18/24 History Dextran/Hypromellose/Glycerin 1 drop BOTH EYES Q2H PRN 11/18/24 11/18/24 History [Genteal Tears 0.1%-0.2%-0.3%] Eucerin Plus Lotion 1 applic TOPICAL BID 11/18/24 11/18/24 History Fenofibrate Nanocrystallized 145 mg PO HS 11/18/24 11/18/24 History [Tricor] Furosemide [Lasix] 20 mg PO DAILY@1700 11/18/24 11/18/24 History Insulin Degludec [Insulin Degludec 65 units SQ BID@1200,2000 11/18/24 11/18/24 History Pen (U-100)] Melatonin 5 mg PO HS 11/18/24 11/18/24 History Menthol [Biofreeze] 1 applic TOPICAL Q8H PRN 11/18/24 11/18/24 History carvediloL [Coreg] 6.25 mg PO BID@1200,1700 11/18/24 11/18/24 History Allergies Allergy/AdvReac Type Severity Reaction Status Date / Time bee venom protein (honey bee) Allergy Unknown Unknown Verified 11/18/24 10:31 amoxicillin [From Augmentin] Allergy Rash/Hives Verified 11/18/24 10:31 clavulanic acid Allergy Rash/Hives Verified 11/18/24 10:31 [From Augmentin] iodine Allergy Unknown Verified 11/18/24 10:31 shellfish derived [Shellfish] Allergy Unknown Verified 11/18/24 10:31 tape Allergy Unknown Uncoded 11/18/24 10:31 Physical Exam Vitals: Vital Signs Temp Pulse Pulse Pulse Resp BP BP 11/19/24 09:05 148 H 28 H 151/79 11/19/24 08:55 141 H 30 H 167/91 11/19/24 08:45 146 H 30 H 141/71 11/19/24 08:42 11/19/24 08:37 146 H 32 H 151/100 11/19/24 08:33 100.2 F H 156 H 33 H 182/105 11/19/24 08:32 34 H 11/19/24 08:09 11/19/24 08:01 159 H 36 H 219/126 11/19/24 08:00 157 H 34 H 11/19/24 07:28 100.3 F H 138 H 36 H 249/149 11/19/24 04:00 99.7 F H 101 H 18 145/81 11/19/24 00:00 99.4 F 111 H 16 144/78 11/18/24 21:45 98.6 F 107 H 18 120/65 11/18/24 19:00 115 H 18 118/61 11/18/24 18:38 120 H 18 147/73 11/18/24 18:36 118 H 18 147/73 11/18/24 18:00 101 F H 118 H 20 116/66 11/18/24 15:06 109/57 11/18/24 15:03 98.4 F 102 H 18 102/54 11/18/24 13:00 99 18 126/64 11/18/24 12:21 97.8 F 96 18 149/82 Pulse Ox FiO2 11/19/24 09:05 97 80 11/19/24 08:55 98 80 11/19/24 08:45 97 80 11/19/24 08:42 97 80 11/19/24 08:37 99 100 11/19/24 08:33 100 100 11/19/24 08:32 97 100 11/19/24 08:09 100 11/19/24 08:01 88 L 11/19/24 08:00 11/19/24 07:28 70 L 11/19/24 04:00 94 L 11/19/24 00:00 97 11/18/24 21:45 95 11/18/24 19:00 11/18/24 18:38 96 11/18/24 18:36 96 11/18/24 18:00 96 11/18/24 15:06 11/18/24 15:03 98 11/18/24 13:00 96 11/18/24 12:21 95 Intake and Output 11/18/24 11/19/24 11/19/24 22:59 06:59 14:59 Output Total 850 385 Balance -850 -385 Output: Urine 850 385 Uretheral (Ott) 385 Other: Weight 95.5 kg Results - Lab Results Most recent lab results Calcium 9.0 mg/dL (8.4-10.2) 11/19/24 06:21 Magnesium 1.5 mg/dL (1.6-2.3) L 11/18/24 05:11 11/19/24 06:21 11/19/24 06:21 Assessment and Plan Assessment: 1. Non-oliguric NIURKA 2/2 ATN related to sepsis and hypotension. Baseline creatinine 0.9 (2020). Presented creatinine 2.4, improved to 1.8 today. 2. LLE cellulitis with sepsis 3. Metabolic aacidosis related to NIURKA 4. Hypoxic respiratory failure related to fluid overload on Bipap Plan: Agree with holding IVF and dose Lasix given for hypoxia Ott placed for strict I/O's No indication for HD at this time Avoid hypotension and nephrotoxins ABX per ID Daily BMP, check UA
[2024-11-19] MEDS: FERROUS SULFATE 325 MG TAB PO SCH (12:26)
[2024-11-19] MEDS: PANTOPRAZOLE 40 MG TABLET PO SCH (12:26)
--- NOTE | 2024-11-19 15:04 | P.HPIM ---
History of Present Illness H&P Date: 11/19/24 This is a 69-year-old male who presents from [facility] where he resides secondary to altered mentation. Patient is a past medical history of asthma, dementia, diabetes mellitus, DVT, heart failure, GERD, hypertension, hyperlipidemia, AAA, MRSA in the past, prior right of left erhyz-qtf-zccu amputation, orthopedic surgery, former smoker. There is also concern for right lower extremity cellulitis. Patient was sent down for [facility] for further evaluation. Patient is a poor historian essentially is alert x 2 with confusion at times. This is his baseline. His chest x-ray reveals new internal jugular central venous catheter terminating the right atrium. He had an echocardiogram completed on admission which reveals an EF of 40 to 45% with mildly enlarged right ventricle. While in the ER he received vancomycin for the left right lower extremity cellulitis and was started on Levophed secondary to decreased pressures down to the 80s over 40s on admission. Concern for sepsis. He was admitted to the intensive care unit with pulmonology consultation. REVIEW OF SYSTEMS: CONSTITUTIONAL: No fever, no malaise, no fatigue. HEENT: No recent visual problems or hearing problems. Denied any sore throat. CARDIOVASCULAR: No chest pain, orthopnea, PND, no palpitations, no syncope. PULMONARY: No shortness of breath, no cough, no hemoptysis. GASTROINTESTINAL: No diarrhea, no nausea, no vomiting, no abdominal pain. NEUROLOGICAL: No headaches, no weakness, no numbness. HEMATOLOGICAL: Denies any bleeding or petechiae. GENITOURINARY: Denies any burning micturition, frequency, or urgency. MUSCULOSKELETAL/RHEUMATOLOGICAL: Denies any joint pain, swelling, or any muscle pain. ENDOCRINE: Denies any polyuria or polydipsia. The rest of the 14-point review of systems is negative. PHYSICAL EXAMINATION: GENERAL: The patient is alert and oriented x3, not in any acute distress. Well developed, well nourished. HEENT: Pupils are round and equally reacting to light. EOMI. No scleral icterus. No conjunctival pallor. Normocephalic, atraumatic. No pharyngeal erythema. No thyromegaly. CARDIOVASCULAR: S1 and S2 present. No murmurs, rubs, or gallops. PULMONARY: Chest is clear to auscultation, no wheezing or crackles. ABDOMEN: Soft, nontender, nondistended, normoactive bowel sounds. No palpable organomegaly. MUSCULOSKELETAL: No joint swelling or deformity. EXTREMITIES: No cyanosis, clubbing, or pedal edema. Left [id number] amputation NEUROLOGICAL: Gross neurological examination did not reveal any focal deficits. SKIN: No rashes. Erythema of the right lower extremity Assessment Right lower extremity cellulitis with sepsis and septic shock, POA Acute renal failure due to to ATN/sepsis Diabetes Mellitus type 2 with hyperglycemia Hypomagnesemia Troponin elevation Hx of hypertension hyperlipidemia AAA hx Hx of left above the knee amputation Leukocytosis History of heart failure history of asthma History of DVT GERD GI prophylaxis DVT prophylaxis Full Code Plan Patient admitted to the ICU with critical care/pulmonology on consult ID consulted Patient started on IV cefepime, IV vancomycin Continue IV fluids Pending blood cultures Continue levophed Awaiting bed on the medical floor The impression and plan of care has been dictated by Marjorie Machado Nurse Practitioner as directed. Dr. Gerardo MD I have performed a history and physical examination and medical decision making of this patient, discussed the same with the dictator, and agree with the dictators assessment and plan as written, documented as a scribe. Based on total visit time, I have performed more than 50% of this visit. Past Medical History Past Medical History: Asthma, Blood Disorder, Heart Failure, Dementia, Diabetes Mellitus, Deep Vein Thrombosis (DVT), GERD/Reflux, Hyperlipidemia, Hypertension, Liver Disease, Osteoarthritis (OA), Vascular Disorder Additional Past Medical History / Comment(s): AAA, iron def anemia, diverticulosis, fatty liver History of Any Multi-Drug Resistant Organisms: MRSA Date of last positivie culture/infection: 2023? MDRO Source:: right leg per 12/24/23 health hx Past Surgical History: Back Surgery, Hernia Repair, Orthopedic Surgery Additional Past Surgical History / Comment(s): cystoscopy & left ureteral stent 12/24/23; left above knee amputation, left hand surg, L4-L5 repair Past Anesthesia/Blood Transfusion Reactions: No Reported Reaction Additional Past Anesthesia/Blood Transfusion Reaction / Comment(s): caregiver not aware of any anesthesia problems for pt. Past Psychological History: Anxiety, Depression Smoking Status: Former smoker Medications and Allergies Home Medications Medication Instructions Recorded Confirmed Type Acetaminophen Tab [Tylenol] 650 mg PO BID@1200,2100 01/18/2411/18/25 History Apixaban [Eliquis] 5 mg PO BID@1200,17001/18/24 11/18/24 History Bethanechol Chloride 25 mg PO TID@1100,1700,209901/18/24 11/18/24 History Clopidogrel [Plavix] 75 mg PO DAILY@119901/18/24 11/18/24 History Daily Radha 1 tab PO DAILY 01/18/24 11/18/24 History Ferrous Sulfate [Feosol] 325 mg PO DAILY 01/18/24 11/18/24 History Furosemide [Lasix] 40 mg PO DAILY@119901/18/24 11/18/24 History Gabapentin 600 mg PO BID@1100,169901/18/24 11/18/24 History HYDROcodone/APAP 10-325MG [[place] 1 tab PO Q8HR PRN 01/18/24 11/18/24 History 10-325] Insulin Aspart (Niacinamide) 4 units SQ TID@1100,170,209901/18/24 11/18/24 History [Fiasp 100 Unit/ml Vial] Magnesium Hydroxide [Milk of 30 ml PO DAILY PRN 01/18/24 11/18/24 History Magnesia Concentrate] Metoprolol Succinate (ER) [Toprol 50 mg PO DAILY@109901/18/24 11/18/24 History Xl] Unity-3/Dha/Epa/Fish Oil [Fish Oil 1 cap PO BID@1200,209901/18/24 11/18/24 History 1,000 mg Softgel] Pantoprazole [Protonix] 40 mg PO DAILY@109901/18/24 11/18/24 History Semaglutide [Ozempic] 0.5 mg SQ FR@169901/18/24 11/18/24 History Zinc Gluconate [Zinc] 50 mg PO DAILY@119901/18/24 11/18/24 History metFORMIN HCL 1,000 mg PO BID@1200,169901/18/24 11/18/24 History Acetaminophen [Tylenol] 650 mg PO Q4H PRN 11/18/24 11/18/24 History Biotene Dry Mouth/Throat Lozenge 1 lozenge PO DIRECTED PRN 11/18/24 11/18/24 History Dextran/Hypromellose/Glycerin 1 drop BOTH EYES Q2H PRN 11/18/24 11/18/24 History [Genteal Tears 0.1%-0.2%-0.3%] Eucerin Plus Lotion 1 applic TOPICAL BID 11/18/24 11/18/24 History Fenofibrate Nanocrystallized 145 mg PO HS 11/18/24 11/18/24 History [Tricor] Furosemide [Lasix] 20 mg PO DAILY@1700 11/18/24 11/18/24 History Insulin Degludec [Insulin Degludec 65 units SQ BID@1200,2000 11/18/24 11/18/24 History Pen (U-100)] Melatonin 5 mg PO HS 11/18/24 11/18/24 History Menthol [Biofreeze] 1 applic TOPICAL Q8H PRN 11/18/24 11/18/24 History carvediloL [Coreg] 6.25 mg PO BID@1200,1700 11/18/24 11/18/24 History Allergies Allergy/AdvReac Type Severity Reaction Status Date / Time bee venom protein (honey bee) Allergy Unknown Unknown Verified 11/18/24 10:31 amoxicillin [From Augmentin] Allergy Rash/Hives Verified 11/18/24 10:31 clavulanic acid Allergy Rash/Hives Verified 11/18/24 10:31 [From Augmentin] iodine Allergy Unknown Verified 11/18/24 10:31 shellfish derived [Shellfish] Allergy Unknown Verified 11/18/24 10:31 tape Allergy Unknown Uncoded 11/18/24 10:31 Physical Exam Vitals: Vital Signs Temp Pulse Resp BP Pulse Ox 11/18/24 07:20 96 18 109/61 96 11/18/24 06:36 93 20 90/43 98 11/18/24 06:00 98.6 F 92 20 106/75 98 11/18/24 05:45 94 20 119/70 98 11/18/24 05:30 97 20 98/58 98 11/18/24 05:15 98.4 F 96 20 86/62 98 11/18/24 05:00 96 22 93/62 98 11/18/24 04:44 98.2 F 98 22 87/48 96 Intake and Output 11/17/24 11/18/24 11/18/24 22:59 06:59 14:59 Intake Total 2.077 Balance 2.077 Intake: Intake, IV Titration 2.077 Amount Norepinephrine 32 mg In 2.077 Sodium Chloride 0.9% 218 ml @ 0.03 MCG/KG/MIN 1.34 mls/hr IV .Q24H [facility] Rx#: [id number] Other: Weight 95.254 kg Results CBC & Chem 7: 11/19/24 06:21 11/19/24 06:21 Labs: Abnormal Lab Results - Last 24 Hours (Table) 11/18/24 11/18/24 11/18/24 Range/Units 05:11 05:11 05:40 WBC 14.76 H (4.50-10.00) 10*3/uL Immature Gran # 0.05 H (0.00-0.04) 10*3/uL Neutrophils # 13.81 H (1.80-7.70) 10*3/uL Lymphocytes # 0.36 L (0.90-5.00) 10*3/uL Eosinophils # 0.00 L (0.04-0.35) 10*3/uL Sodium 136 L (137-145) mmol/L BUN 34 H (9-20) mg/dL Creatinine 2.46 H (0.66-1.25) mg/dL Magnesium 1.5 L (1.6-2.3) mg/dL Alkaline Phosphatase 36 L (38-126) U/L Troponin I 0.116 H* (0.000-0.034) ng/mL Albumin 3.3 L (3.5-5.0) g/dL Assessment and Plan Time with Patient: Less than 30
--- NOTE | 2024-11-19 15:49 | P.PN ---
Subjective Progress Note Date: 11/19/24 Principal diagnosis: Reason for follow-up is sepsis and right leg cellulitis Patient is a 69-year-old male with a past medical history significant for Asthma, Blood Disorder, Heart Failure, Dementia, Diabetes Mellitus, Deep Vein Thrombosis (DVT), GERD/Reflux, Hyperlipidemia, Hypertension, Liver Disease, Osteoarthritis (OA), Vascular Disorder previous history of left zzomr-lnf-wehz amputation has been brought to the hospital for evaluation of altered mentation has been diagnosed with right lower extremity cellulitis with sepsis with the patient was transferred to this facility. On today's evaluation that is 11/19/2024 the patient is spiking fever last evening of 101 F with a temperature of 100.2 this morning but afebrile this afternoon patient also have some worsening of respiratory status requiring placement of the BiPAP no vomiting or diarrhea reported by the nursing staff. Patient white count normalized to 9.41, creatinine is 1.80 blood cultures are pending Objective - Vital Signs Vital signs: Vital Signs Temp 98.7 F 11/19/24 12:25 Pulse 110 H 11/19/24 12:25 Resp 18 11/19/24 14:00 BP 95/53 11/19/24 12:25 Pulse Ox 97 11/19/24 12:25 FiO2 50 11/19/24 12:47 Intake & Output 11/18/24 11/19/24 11/19/24 18:59 06:59 18:59 Intake Total 8.270 Output Total 850 735 Balance 8.270 -850 -735 Weight 95.5 kg 95.5 kg Intake: Intake, IV Titration 8.270 Amount Norepinephrine 32 mg In 8.270 Sodium Chloride 0.9% 218 ml @ 0.03 MCG/KG/MIN 1.34 mls/hr IV .Q24H [facility] Rx#: [id number] Output: Urine 850 735 Uretheral (Ott) 385 - Exam GENERAL DESCRIPTION: An elderly male lying in bed in no distress RESPIRATORY SYSTEM: Unlabored breathing , decreased breath sounds at bases HEART: S1 S2 regular rate and rhythm , ABDOMEN: Soft , no tenderness EXTREMITIES: Right leg swelling redness slightly decreased - Labs CBC & Chem 7: 11/19/24 06:21 11/19/24 06:21 Labs: Abnormal Lab Results - Last 24 Hours (Table) 11/18/24 11/18/24 11/19/24 Range/Units 17:14 20:00 06:21 RBC 3.69 L (4.40-5.60) 10*6/uL Hgb 11.2 L D (13.0-17.0) g/dL Hct 34.4 L (39.6-50.0) % Neutrophils # 7.93 H (1.80-7.70) 10*3/uL Lymphocytes # 0.86 L (0.90-5.00) 10*3/uL Sodium (137-145) mmol/L Carbon Dioxide (22-30) mmol/L BUN (9-20) mg/dL Creatinine (0.66-1.25) mg/dL POC Glucose (mg/dL) 194 H 223 H (70-110) mg/dL Albumin (3.5-5.0) g/dL 11/19/24 11/19/24 11/19/24 Range/Units 06:21 07:29 11:22 RBC (4.40-5.60) 10*6/uL Hgb (13.0-17.0) g/dL Hct (39.6-50.0) % Neutrophils # (1.80-7.70) 10*3/uL Lymphocytes # (0.90-5.00) 10*3/uL Sodium 135 L (137-145) mmol/L Carbon Dioxide 19 L (22-30) mmol/L BUN 25 H (9-20) mg/dL Creatinine 1.80 H (0.66-1.25) mg/dL POC Glucose (mg/dL) 115 H 184 H (70-110) mg/dL Albumin 3.4 L (3.5-5.0) g/dL Microbiology - Last 24 Hours (Table) 11/18/24 05:11 Blood Culture - Preliminary Blood Assessment and Plan (1) Sepsis Current Visit: Yes Status: Acute Code(s): A41.9 - SEPSIS, UNSPECIFIED ORGANISM SNOMED Code(s): 03577349 (2) Cellulitis of right leg Current Visit: Yes Status: Acute Code(s): L03.115 - CELLULITIS OF RIGHT LOWER LIMB SNOMED Code(s): 74816658583680387 (3) Penicillin allergy Current Visit: Yes Status: Acute Code(s): Z88.0 - ALLERGY STATUS TO PENICILLIN SNOMED Code(s): 13829519 (4) Elevated serum creatinine Current Visit: Yes Status: Acute Code(s): R79.89 - OTHER SPECIFIED ABNORMAL FINDINGS OF BLOOD CHEMISTRY SNOMED Code(s): 707718568 Plan: 1patient presented to hospital with sepsis in this patient who did have fever t achycardia elevated white count elevated lactic acid meeting currently for SIRS/sepsis source likely right lower extremity cellulitis in this patient did have a history of left lower extremity infection requiring left hpauj-fux-yunr amputation will need to cover for the resistant gram-positive as well as gram- negative pathogen 2-patient did have improvement in his fever patterns also improvement in his creatinine currently being treated with cefepime and vancomycin watching his kidney function closely Dictation was produced using [employer] dictation software. please excuse any grammatical, word or spelling errors.
[2024-11-19 16:33] LABS: Glucose,Whole Blood 200 mg/dL (70-110)
--- NOTE | 2024-11-19 18:11 | P.CRDCN ---
History of Present Illness Consult date: 11/19/24 History of present illness: HISTORY OF PRESENTING ILLNESS: presents from [facility] where he resides secondary to altered mentation PMH of type 2 diabetes, dementia asthma DVT, cardiomyopathy heart failure hypertension dyslipidemia AAA, above-knee amputation on the left, smoking history in the past. This time there was some concern of right lower extremity cellulitis. Poor historian. History is mostly obtained from the medical chart. Apparently he was at [facility] for right lower extremity swelling and cellulitis and concerns of sepsis. In hospital he became hypotensive and hypoxic and was placed on BiPAP and because of noncompliance with BiPAP and worsening hemodynamics he was transferred to [facility]. Cardiology was consulted for elevated troponin in setting of NIURKA which has been trending down as kidney function is improving Home cardiac medications Lasix 20 mg a.m. of 40 mg p.m., metoprolol 50 daily Plavix 75 fenofibrate 145 Coreg 6.25 twice daily Eliquis 5 twice daily ............................................................ ................................................................................ .. Initial troponin 0.1, repeat 0.8, repeat 0.6 Admission creatinine 2.4 repeat 1.8 Hb 15, WBC 14 EKG shows sinus rhythm with nonspecific ST changes inferolateral leads. Heart rate 96 Chest x-ray shows mild increase interstitial markings cystoscopy mild fluid overload with mild infiltrates in the right lung. ....... ................................................................................ ....................................................... Prior cardiac testing: Echo from this admission shows EF of 45 to 50%, mildly enlarged RV, no major valvular dysfunction, no obvious regional wall motion abnormality reported No prior echo to compare with in database .............................................. ................................................................................ ................ REVIEW OF SYSTEMS: 14 point review of system is negative except what is mentioned above in HPI. ....... ................................................................................ ....................................................... PHYSICAL EXAMINATION: Neck: Brisk carotid upstroke, no jugular venous distention. Lungs: Poor inspiratory effort, mild crackles audible Heart: Regular rate and rhythm, S1-S2, , no murmur or rub. Abdomen: Soft nontender, positive bowel sounds. Extremities: No edema, intact distal pulses. Neuro: Confused. Detailed neuro exam was not performed. ................... ................................................................................ ........................................... 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 Give metoprolol succinate 25 instead. Lasix 40 mg IV was given. Monitor kidney function and electrolytes. Due to borderline low blood pressure will not repeat further Lasix, reevaluate tomorrow Consider optimizing GDMT once kidney function stabilizes and blood pressure is better. Kei Hu MD, FAC, RPVI Past Medical History Past Medical History: Asthma, Blood Disorder, Heart Failure, Dementia, Diabetes Mellitus, Deep Vein Thrombosis (DVT), GERD/Reflux, Hyperlipidemia, Hypertension, Liver Disease, Osteoarthritis (OA), Vascular Disorder Additional Past Medical History / Comment(s): AAA, iron def anemia, diverticulosis, fatty liver History of Any Multi-Drug Resistant Organisms: MRSA Date of last positivie culture/infection: 2023? MDRO Source:: right leg per 12/24/23 health hx Past Surgical History: Back Surgery, Hernia Repair, Orthopedic Surgery Additional Past Surgical History / Comment(s): cystoscopy & left ureteral stent 12/24/23; left above knee amputation, left hand surg, L4-L5 repair Past Anesthesia/Blood Transfusion Reactions: No Reported Reaction Additional Past Anesthesia/Blood Transfusion Reaction / Comment(s): caregiver not aware of any anesthesia problems for pt. Past Psychological History: Anxiety, Depression Smoking Status: Former smoker Medications and Allergies Home Medications Medication Instructions Recorded Confirmed Type Acetaminophen Tab [Tylenol] 650 mg PO BID@1200,209901/18/24 11/18/24 History Apixaban [Eliquis] 5 mg PO BID@1200,169901/18/24 11/18/24 History Bethanechol Chloride 25 mg PO TID@1100,1700,209901/18/24 11/18/24 History Clopidogrel [Plavix] 75 mg PO DAILY@119901/18/24 11/18/24 History Daily Radha 1 tab PO DAILY 01/18/24 11/18/24 History Ferrous Sulfate [Feosol] 325 mg PO DAILY 01/18/24 11/18/24 History Furosemide [Lasix] 40 mg PO DAILY@119901/18/24 11/18/24 History Gabapentin 600 mg PO BID@1100,169901/18/24 11/18/24 History HYDROcodone/APAP 10-325MG [[place] 1 tab PO Q8HR PRN 01/18/24 11/18/24 History 10-325] Insulin Aspart (Niacinamide) 4 units SQ TID@1100,170,209901/18/24 11/18/24 History [Fiasp 100 Unit/ml Vial] Magnesium Hydroxide [Milk of 30 ml PO DAILY PRN 01/18/24 11/18/24 History Magnesia Concentrate] Metoprolol Succinate (ER) [Toprol 50 mg PO DAILY@109901/18/24 11/18/24 History Xl] [place]-3/Dha/Epa/Fish Oil [Fish Oil 1 cap PO BID@1199,209901/18/24 11/18/24 History 1,000 mg Softgel] Pantoprazole [Protonix] 40 mg PO DAILY@109901/18/24 11/18/24 History Semaglutide [Ozempic] 0.5 mg SQ FR@169901/18/24 11/18/24 History Zinc Gluconate [Zinc] 50 mg PO DAILY@119901/18/24 11/18/24 History metFORMIN HCL 1,000 mg PO BID@1200,169901/18/24 11/18/24 History Acetaminophen [Tylenol] 650 mg PO Q4H PRN 11/18/24 11/18/24 History Biotene Dry Mouth/Throat Lozenge 1 lozenge PO DIRECTED PRN 11/18/24 11/18/24 History Dextran/Hypromellose/Glycerin 1 drop BOTH EYES Q2H PRN 11/18/24 11/18/24 History [Genteal Tears 0.1%-0.2%-0.3%] Eucerin Plus Lotion 1 applic TOPICAL BID 11/18/24 11/18/24 History Fenofibrate Nanocrystallized 145 mg PO HS 11/18/24 11/18/24 History [Tricor] Furosemide [Lasix] 20 mg PO DAILY@1700 11/18/24 11/18/24 History Insulin Degludec [Insulin Degludec 65 units SQ BID@1200,2000 11/18/24 11/18/24 History Pen (U-100)] Melatonin 5 mg PO HS 11/18/24 11/18/24 History Menthol [Biofreeze] 1 applic TOPICAL Q8H PRN 11/18/24 11/18/24 History carvediloL [Coreg] 6.25 mg PO BID@1200,1700 11/18/24 11/18/24 History Allergies Allergy/AdvReac Type Severity Reaction Status Date / Time bee venom protein (honey bee) Allergy Unknown Unknown Verified 11/18/24 10:31 amoxicillin [From Augmentin] Allergy Rash/Hives Verified 11/18/24 10:31 clavulanic acid Allergy Rash/Hives Verified 11/18/24 10:31 [From Augmentin] iodine Allergy Unknown Verified 11/18/24 10:31 shellfish derived [Shellfish] Allergy Unknown Verified 11/18/24 10:31 tape Allergy Unknown Uncoded 11/18/24 10:31 Physical Exam Vitals: Vital Signs Temp Pulse Pulse Pulse Resp BP BP 11/19/24 17:00 97.9 F 94 20 96/66 11/19/24 16:56 11/19/24 14:00 18 11/19/24 12:47 11/19/24 12:25 98.7 F 110 H 18 95/53 11/19/24 09:30 132 H 30 H 131/79 11/19/24 09:05 148 H 28 H 151/79 11/19/24 08:55 141 H 30 H 167/91 11/19/24 08:45 146 H 30 H 141/71 11/19/24 08:42 11/19/24 08:37 146 H 32 H 151/100 11/19/24 08:33 100.2 F H 156 H 33 H 182/105 11/19/24 08:32 34 H 11/19/24 08:09 11/19/24 08:01 159 H 36 H 219/126 11/19/24 08:00 157 H 34 H 11/19/24 07:28 100.3 F H 138 H 36 H 249/149 11/19/24 04:00 99.7 F H 101 H 18 145/81 11/19/24 00:00 99.4 F 111 H 16 144/78 11/18/24 21:45 98.6 F 107 H 18 120/65 11/18/24 19:00 115 H 18 118/61 11/18/24 18:38 120 H 18 147/73 11/18/24 18:36 118 H 18 147/73 Pulse Ox FiO2 11/19/24 17:00 100 50 11/19/24 16:56 40 11/19/24 14:00 11/19/24 12:47 50 11/19/24 12:25 97 50 11/19/24 09:30 97 100 11/19/24 09:05 97 80 11/19/24 08:55 98 80 11/19/24 08:45 97 80 11/19/24 08:42 97 80 11/19/24 08:37 99 100 11/19/24 08:33 100 100 11/19/24 08:32 97 100 11/19/24 08:09 100 11/19/24 08:01 88 L 11/19/24 08:00 11/19/24 07:28 70 L 11/19/24 04:00 94 L 11/19/24 00:00 97 11/18/24 21:45 95 11/18/24 19:00 11/18/24 18:38 96 11/18/24 18:36 96 Intake and Output 11/19/24 11/19/24 11/19/24 06:59 14:59 22:59 Output Total 850 735 250 Balance -850 -735 -250 Output: Urine 850 735 250 Uretheral (Ott) 385 Other: Weight 95.5 kg 95.5 kg Results 11/19/24 06:21 11/19/24 06:21 Cardiac Enzymes 11/19/24 Range/Units 06:21 AST 47 (17-59) U/L CBC 11/19/24 Range/Units 06:21 WBC 9.41 (4.50-10.00) 10*3/uL RBC 3.69 L (4.40-5.60) 10*6/uL Hgb 11.2 L D (13.0-17.0) g/dL Hct 34.4 L (39.6-50.0) % Plt Count 253 (140-440) 10*3/uL Comprehensive Metabolic Panel 11/19/24 Range/Units 06:21 Sodium 135 L (137-145) mmol/L Potassium 4.5 (3.5-5.1) mmol/L Chloride 106 (98-107) mmol/L Carbon Dioxide 19 L (22-30) mmol/L BUN 25 H (9-20) mg/dL Creatinine 1.80 H (0.66-1.25) mg/dL Glucose 99 (74-99) mg/dL Calcium 9.0 (8.4-10.2) mg/dL AST 47 (17-59) U/L ALT 35 (4-49) U/L Alkaline Phosphatase 48 (38-126) U/L Total Protein 6.5 (6.3-8.2) g/dL Albumin 3.4 L (3.5-5.0) g/dL Current Medications Generic Name Dose Route Start Last Admin Trade Name Freq PRN Reason Stop Dose Admin Acetaminophen 650 mg 11/18/24 05:38 11/18/24 18:07 Acetaminophen Tab 325 Mg Tab PO 650 mg Q4HR PRN Administration Fever and/or Mild Pain Hydrocodone Bitart/Acetaminophen 1 each 11/18/24 11:39 11/19/24 13:11 Hydrocodone/Apap 10-325mg 1 Each Tab PO 1 each Q8HR PRN Administration Pain 4-10 Apixaban 5 mg 11/18/24 12:00 11/19/24 17:13 Apixaban 5 Mg Tab PO 5 mg BID@1200,1700 ATIF Administration Protocol Artificial Tears 1 drops 11/18/24 11:39 Artificial Tears-Hypromellose Drops 15 Ml Btl BOTH EYES Q2H PRN Dry Eye(s) Bethanechol Chloride 25 mg 11/18/24 17:00 11/19/24 17:13 Bethanechol 25 Mg Tab PO 25 mg TID@1100,1700,2100 ATIF Administration Clopidogrel Bisulfate 75 mg 11/18/24 12:00 11/19/24 12:26 Clopidogrel 75 Mg Tab PO 75 mg DAILY@1200 ATIF Administration Dextrose/Water 25 ml 11/18/24 11:44 Dextrose 50% Syringe 50 Ml IVP PER PROTOCOL PRN Hypoglycemia Protocol Dextrose/Water 50 ml 11/18/24 11:44 Dextrose 50% Syringe 50 Ml IVP PER PROTOCOL PRN Hypoglycemia Protocol Fenofibrate 160 mg 11/18/24 21:00 11/18/24 20:21 Fenofibrate 160 Mg Tab PO 160 mg HS ATIF Administration Ferrous Sulfate 325 mg 11/19/24 09:00 11/19/24 12:26 Ferrous Sulfate 325 Mg Tab PO 325 mg DAILY ATIF Administration Hydralazine HCl 10 mg 11/19/24 08:20 11/19/24 08:28 Hydralazine Hcl 20 Mg/Ml 1 Ml Vial IVP 10 mg Q4HR PRN Administration Blood Pressure - High Cefepime HCl 1 gm/ Sodium 50 mls @ 12.5 mls/hr 11/18/24 06:00 11/19/24 17:33 Chloride IVPB 12.5 mls/hr Q12H ATIF Administration Protocol Vancomycin HCl 1,500 mg/ 500 mls @ 167 mls/hr 11/20/24 08:00 Sodium Chloride IVPB Q24H [facility] Insulin Glargine 65 unit 11/18/24 12:00 11/19/24 12:26 Insulin Glargine (Lantus) 100 Unit/Ml Syr SQ 65 unit BID@1200,2000 ATIF Administration Insulin Human Lispro 0 unit 11/18/24 12:30 11/19/24 17:13 Insulin Lispro (Humalog) 100 Unit/Ml 10 Ml Vl SQ Not Given ACHS ATIF Protocol Lorazepam 0.5 mg 11/19/24 09:21 Lorazepam 1 Mg/0.5 Ml Vial IV Q6HR PRN Anxiety Melatonin 5 mg 11/18/24 21:00 11/18/24 20:21 Melatonin 5 Mg Tablet PO 5 mg HS ATIF Administration Methyl Salicylate 1 applic 11/19/24 16:44 Methyl Salicylate-Menthol Oint (3 Oz Tube) TOPICAL Q12HR PRN Muscle Pain Protocol Naloxone HCl 0.2 mg 11/18/24 05:38 Naloxone 0.4 Mg/Ml 1 Ml Vial IV Q2M PRN Opioid Reversal Pantoprazole Sodium 40 mg 11/19/24 11:00 11/19/24 12:26 Pantoprazole 40 Mg Tablet PO 40 mg DAILY@1100 ATIF Administration Zinc Sulfate 220 mg 11/18/24 12:00 11/19/24 12:26 Zinc Sulfate 220 Mg Cap PO 220 mg DAILY@1200 ATIF Administration Intake and Output 11/19/24 11/19/24 11/19/24 06:59 14:59 22:59 Output Total 850 735 250 Balance -850 -735 -250 Output: Urine 850 735 250 Uretheral (Ott) 385 Other: Weight 95.5 kg 95.5 kg Patient Weight 11/20/24 06:59 Weight 95.5 kg 11/19/24 06:21 11/19/24 06:21
[2024-11-19] MEDS: METHYL SALICYLATE-MENTHOL OINT (3 OZ TUBE) TOPICAL PRN (18:47)
[2024-11-19 20:05] LABS: Glucose,Whole Blood 122 mg/dL (70-110)
--- NOTE | 2024-11-19 22:11 | P.PN ---
Subjective Progress Note Date: 11/19/24 This is a 69-year-old male who presents from [facility] where he resides. Patient was sent down for [facility] for further evaluation. He was initially admitted there with lower extremity swelling, cellulitis and concern for sepsis. Patient has a past medical history of asthma, dementia, diabetes mellitus, DVT, heart failure, GERD, hypertension, hyperlipidemia, AAA, MRSA in the past, prior right of left [id number] amputation, orthopedic surgery, former smoker. There is also concern for right lower extremity cellulitis. Patient is a poor historian essentially is alert x 2 with confusion at times. This is his baseline. His chest x-ray reveals new internal jugular central venous catheter terminating the right atrium. He had an echocardiogram completed on admission which reveals an EF of 40 to 45% with mildly enlarged right ventricle. While in the ER he received vancomycin for the left right lower extremity cellulitis and was started on Levophed secondary to decreased pressures down to the 80s/40s. Concern for sepsis. He was admitted to the intensive care unit with pulmonology consultation. 11/19/2024 Patient is evaluated today in follow up. [facility] called this morning secondary to respiratory distress, altered mentation and hypertension. Patient was placed on BiPAP with 100% FiO2. Chest xray reveals vascular congestion. ProBNP elevated at 7290. Patient received IV lasix 40 mg x1. Renal function has improved to BUN 25, creatinine 1.80. White blood cell count 9.41. T-Max 100.3 in the last 24 hours. REVIEW OF SYSTEMS: CONSTITUTIONAL: No fever, no malaise, no fatigue. HEENT: No recent visual problems or hearing problems. Denied any sore throat. CARDIOVASCULAR: No chest pain, orthopnea, PND, no palpitations, no syncope. PULMONARY: No shortness of breath, no cough, no hemoptysis. GASTROINTESTINAL: No diarrhea, no nausea, no vomiting, no abdominal pain. NEUROLOGICAL: No headaches, no weakness, no numbness. PHYSICAL EXAMINATION: GENERAL: The patient is alert and oriented x3, not in any acute distress. Well developed, well nourished. HEENT: Pupils are round and equally reacting to light. EOMI. No scleral icterus. No conjunctival pallor. Normocephalic, atraumatic. No pharyngeal erythema. No thyromegaly. CARDIOVASCULAR: S1 and S2 present. No murmurs, rubs, or gallops. PULMONARY: Chest is clear to auscultation, no wheezing or crackles. ABDOMEN: Soft, nontender, nondistended, normoactive bowel sounds. No palpable organomegaly. MUSCULOSKELETAL: No joint swelling or deformity. EXTREMITIES: No cyanosis, clubbing, or pedal edema. Left [id number] amputation NEUROLOGICAL: Gross neurological examination did not reveal any focal deficits. SKIN: No rashes. Erythema of the right lower extremity Assessment Right lower extremity cellulitis with sepsis and septic shock, POA Acute renal failure due to to ATN/sepsis Troponin elevation tyle II MA demand supply mismatch Mild acute CHF exacerbation; systolic dysfunction with EF 40-45% Diabetes Mellitus type 2 with hyperglycemia Hypomagnesemia Hx of hypertension hyperlipidemia AAA hx Hx of left lower extremity above the knee amputation Leukocytosis History of heart failure history of asthma History of DVT GERD GI prophylaxis DVT prophylaxis: anticoagulated with eliquis Full Code Plan Patient remains on the cardiac unit He was downgraded from the ICU levophed has been discontinued IV fluids discontinued and patient received IV lasix 40 mg x 1 Patient will be monitored off lasix and fluids. Cardiology following; adjusting medications with discontinuation of carvedilol and patient has been started on oral metoprolol. Continue BiPAP support per pulmonology ID consulted Patient started on IV cefepime, IV vancomycin Pending blood cultures Repeat BMP/CBC The impression and plan of care has been dictated by Marjorie Machado, Nurse Practitioner as directed. Dr. Gerardo MD I have performed a history and physical examination and medical decision making of this patient, discussed the same with the dictator, and agree with the dictators assessment and plan as written, documented as a scribe. Based on total visit time, I have performed more than 50% of this visit. Objective - Vital Signs Vital signs: Vital Signs Temp 98.7 F 11/19/24 12:25 Pulse 110 H 11/19/24 12:25 Resp 18 11/19/24 12:25 BP 95/53 11/19/24 12:25 Pulse Ox 97 11/19/24 12:25 FiO2 50 11/19/24 12:47 Intake & Output 11/18/24 11/19/24 11/19/24 18:59 06:59 18:59 Intake Total 8.270 Output Total 850 735 Balance 8.270 -850 -735 Weight 95.5 kg Intake: Intake, IV Titration 8.270 Amount Norepinephrine 32 mg In 8.270 Sodium Chloride 0.9% 218 ml @ 0.03 MCG/KG/MIN 1.34 mls/hr IV .Q24H [facility] Rx#: [id number] Output: Urine 850 735 Uretheral (Ott) 385 - Labs CBC & Chem 7: 11/19/24 06:21 11/19/24 06:21 Labs: Abnormal Lab Results - Last 24 Hours (Table) 11/18/24 11/18/24 11/19/24 Range/Units 17:14 20:00 06:21 RBC 3.69 L (4.40-5.60) 10*6/uL Hgb 11.2 L D (13.0-17.0) g/dL Hct 34.4 L (39.6-50.0) % Neutrophils # 7.93 H (1.80-7.70) 10*3/uL Lymphocytes # 0.86 L (0.90-5.00) 10*3/uL Sodium (137-145) mmol/L Carbon Dioxide (22-30) mmol/L BUN (9-20) mg/dL Creatinine (0.66-1.25) mg/dL POC Glucose (mg/dL) 194 H 223 H (70-110) mg/dL Albumin (3.5-5.0) g/dL 11/19/24 11/19/24 11/19/24 Range/Units 06:21 07:29 11:22 RBC (4.40-5.60) 10*6/uL Hgb (13.0-17.0) g/dL Hct (39.6-50.0) % Neutrophils # (1.80-7.70) 10*3/uL Lymphocytes # (0.90-5.00) 10*3/uL Sodium 135 L (137-145) mmol/L Carbon Dioxide 19 L (22-30) mmol/L BUN 25 H (9-20) mg/dL Creatinine 1.80 H (0.66-1.25) mg/dL POC Glucose (mg/dL) 115 H 184 H (70-110) mg/dL Albumin 3.4 L (3.5-5.0) g/dL Microbiology - Last 24 Hours (Table) 11/18/24 05:11 Blood Culture - Preliminary Blood Assessment and Plan Time with Patient: Greater than 30
[2024-11-19] MEDS: LORazepam 1 MG/0.5 ML VIAL IV PRN (22:24)
[2024-11-20 06:21] LABS: Glucose,Whole Blood 67 mg/dL (70-110)
[2024-11-20 07:11] LABS: Basophils # (A) 0.02 10*3/uL (0.00-0.10); Basophils % (A) 0.2 %; Eosinophils # (A) 0.24 10*3/uL (0.04-0.35); Eosinophils % (A) 2.6 %; HCT 31.2 % (39.6-50.0); HGB 10.2 g/dL (13.0-17.0); Lymphocytes # (A) 0.96 10*3/uL (0.90-5.00); Lymphocytes % (A) 10.2 %; MCH 30.3 pg (27.0-32.0); MCHC 32.7 g/dL (32.0-37.0); MCV 92.6 fL (80.0-97.0); Monocytes # (A) 0.74 10*3/uL (0.20-1.00); Monocytes % (A) 7.9 %; Neutrophils # (A) 7.40 10*3/uL (1.80-7.70); Neutrophils % (A) 78.9 %; Platelet Count 223 10*3/uL (140-440); RBC 3.37 10*6/uL (4.40-5.60); RDW 15.3 % (11.5-14.5); WBC 9.38 10*3/uL (4.50-10.00)
[2024-11-20 07:35] LABS: African American GFR (CKD) 42 (>60 ml/min/1.73 sqM); Anion Gap 9 mmol/L; Blood Urea Nitrogen 27 mg/dL (9-20); Calcium 8.8 mg/dL (8.4-10.2); Carbon Dioxide 22 mmol/L (22-30); Chloride 105 mmol/L (98-107); Glucose 58 mg/dL (74-99); Magnesium 1.9 mg/dL (1.6-2.3); Non-African American GFR(CKD) 36 (>60 ml/min/1.73 sqM); Potassium 4.1 mmol/L (3.5-5.1); Sodium 136 mmol/L (137-145)
[2024-11-20] MEDS: METOPROLOL SUCCINATE (ER) 25 MG TAB.ER.24H PO SCH (08:05)
[2024-11-20] MEDS: VANCOMYCIN 1,500 MG in SODIUM CHLORIDE 0.9% 500 ML 500 ML IVPB SCH (08:05)
--- NOTE | 2024-11-20 11:33 | P.PN ---
Subjective Progress Note Date: 11/20/24 Principal diagnosis: Cellulitis, sepsis. Pulmonary consult dated November 18, 2024. 69-year-old male seen today in the emergency department, room 6. The patient was transferred down from an outside hospital. He apparently came in with weakness, mental status changes, and possible sepsis. He apparently has a history of diabetes, peripheral vascular disease, with a left AKA, hypertension, chronic kidney disease, and cellulitis of the right lower extremity. He apparently was seen at the outside facility and diagnosed with sepsis secondary to right lower extremity cellulitis. The patient's white count was elevated as well as his lactic acid. The patient became hypotensive, and was transferred down to this institution. A central line was placed. In the emergency depart ment, he is currently on 2 L, with a saturation 98%. He is getting lactated Ringer's at 130 cc an hour, he is currently on cefepime and vancomycin, and is getting norepinephrine at 0.04 mcg/kg/min. White count is 14.8, hemoglobin 15.6, macro 47.1, platelet count 193,000. Sodium 136, potassium 4.6, chlorides 105, CO2 22, anion gap 9, BUN 34, and creatinine 2.46. Glucose is 261. Troponins were 0.116 and 0.080. Chest x-ray shows a properly placed central line, and a possible infiltrate or atelectasis at the left base. Progress note dated November 19, 2024. 69-year-old male who was seen yesterday in consultation in the emergency department. He was shipped down from an outside hospital, for sepsis, secondary to cellulitis of the right leg, with hypotension, requiring norepinephrine. The patient was seen in the emergency department, and was on a small dose of norepinephrine, and it was weaned off, and the patient was downgraded to the general medical floor. This morning, he apparently developed some respiratory distress. The charge nurse in the ICU went up on the rapid response team, thought that the patient would benefit from BiPAP, and Lasix. That was given. In addition, blood gas was done. The patient is seen in room 375. He continues on BiPAP, with settings of 14/7 and 80%. A Ott catheter was placed. A blood gas was done and Lasix was given. He continues on vancomycin and cefepime for the cellulitis. Blood gases show pO2 of 66, pCO2 52, and a pH of 7.25. Will check a procalcitonin level, and an N-terminal proBNP. White count was 9.4, hemoglobin 11.2, hematocrit 34.4, platelet count 253,000. Sodium 135, potassium 4.5, chlorides 106, CO2 19, anion gap 10, BUN 25, creatinine 1.80. Glucose is 115. Albumin 3.4. N-terminal proBNP was quite elevated at 7290. Progress note dated November 20, 2024. 69-year-old male seen today in room 375. He looks a whole lot better today than he did yesterday. He did use BiPAP all night, with settings of 14/7 and 40%. He continues on vancomycin and cefepime. No IV fluids. He is currently only on 2 L of oxygen. He is actually sitting in bed, eating his breakfast. He looks again much improved. Current laboratory data includes a white count of 9.4, hemoglobin 10.2, hematocrit 31.2, and a normal platelet count. Sodium 136, potassium 4.1, chloride 105, CO2 22, BUN 27, creatinine 1.86. Glucose is 58. Calcium 8.8, magnesium 1.9. Objective - Vital Signs Vital signs: Vital Signs Temp 99.2 F 11/20/24 08:00 Pulse 90 11/20/24 08:00 Resp 16 11/20/24 08:00 BP 131/74 11/20/24 08:00 Pulse Ox 98 11/20/24 08:00 FiO2 40 11/20/24 08:00 Intake & Output 11/19/24 11/20/24 11/20/24 18:59 06:59 18:59 Intake Total 240 Output Total 985 500 Balance -985 -260 Weight 95.5 kg 62.3 kg Intake: Oral 240 Output: Urine 985 500 Uretheral (Ott) 385 Other: Voiding Method Indwelling Catheter Indwelling Catheter # Bowel Movements 1 - Exam No acute distress, currently on 2 L nasal cannula. HEENT examination is grossly unremarkable. Mucous membranes are moist. No oral lesions. Neck supple. Full range of motion. No adenopathy thyromegaly or neck vein distention. Cardiovascular examination reveals regular rhythm rate. S1-S2 normal. No S3 or S4. No discernible murmur noted. Heart sounds are very distant. Lungs reveal much improved breath sounds. Few scattered rhonchi. No wheezes. No crackles. Breath sounds are equal bilaterally. Abdomen soft bowel sounds are heard. No masses or tenderness. Extremities reveals a left pswim-fdd-cwdr amputation. Right lower extremity has evidence of cellulitis. Skin reveals cellulitis of the right lower extremity. Neurologic examination is brief but nonfocal. - Labs CBC & Chem 7: 11/20/24 06:18 11/20/24 06:18 Labs: Abnormal Lab Results - Last 24 Hours (Table) 11/19/24 11/19/24 11/19/24 Range/Units 08:32 16:31 20:03 RBC (4.40-5.60) 10*6/uL Hgb (13.0-17.0) g/dL Hct (39.6-50.0) % ABG pH 7.26 L (7.35-7.45) ABG pCO2 52 H (35-45) mmHg ABG pO2 66 L (83-108) mmHg ABG Total CO2 25 H (19-24) mmol/L ABG O2 Saturation 89.7 L (94-97) % Sodium (137-145) mmol/L BUN (9-20) mg/dL Creatinine (0.66-1.25) mg/dL Glucose (74-99) mg/dL POC Glucose (mg/dL) 200 H 122 H (70-110) mg/dL 11/20/24 11/20/24 11/20/24 Range/Units 06:18 06:18 06:20 RBC 3.37 L (4.40-5.60) 10*6/uL Hgb 10.2 L (13.0-17.0) g/dL Hct 31.2 L (39.6-50.0) % ABG pH (7.35-7.45) ABG pCO2 (35-45) mmHg ABG pO2 (83-108) mmHg ABG Total CO2 (19-24) mmol/L ABG O2 Saturation (94-97) % Sodium 136 L (137-145) mmol/L BUN 27 H (9-20) mg/dL Creatinine 1.86 H (0.66-1.25) mg/dL Glucose 58 L (74-99) mg/dL POC Glucose (mg/dL) 67 L (70-110) mg/dL Microbiology - Last 24 Hours (Table) 11/18/24 05:11 Blood Culture - Preliminary Blood Assessment and Plan Assessment: Right lower extremity cellulitis, with resultant sepsis, and hypotension. History of congestive heart failure, with acute worsening, secondary to fluid administration. History of hypertension. History of hyperlipidemia. History of diabetes mellitus. History of dementia. History of deep vein thrombosis. Left zziqq-esk-gbcz amputation. Diverticular disease. Prior history of methicillin-resistant Staph aureus infection. Multiple other medical problems and comorbidities. Plan: Plan dated November 18, 2024. The patient is seen in the emergency department, room 6. The patient is currently on norepinephrine at 0.04 mcg/kg/min. He was started on cefepime and vancomycin. He is on 2 L, with saturations of 98%. He is getting lactated Ringer's at 130 cc an hour. All labs, x-rays, and medications are reviewed. We will continue to follow the patient, make recommendations along the way. The patient will be admitted to the ICU, for further monitoring and management. Prognosis is guarded. Dictation was produced using [employer] software. Please excuse any grammatical, word or spelling errors. Plan dated November 19, 2024. The patient was seen today in room 375. He is currently on BiPAP, with settings of 14/7 and 80%. Blood gases show pO2 of 66, pCO2 of 52, pH is 7.25. That was before the BiPAP was placed. His procalcitonin level is pending. BNP was quite high. The patient received Lasix, a Ott catheter, and continues on vancomycin and cefepime for cellulitis. All labs, x-rays, medications are reviewed. We will continue to follow the patient, make recommendations along the way. Prognosis is guarded. Should the patient deteriorate, he will have to be transferred to the intensive care unit. Dictation was produced using [employer] software. Please excuse any grammatical, word or spelling errors. Plan dated November 20, 2024. The patient is seen today in room 375. He is currently laying in bed. He is on 2 L of oxygen. He did wear the BiPAP throughout the night according to the nurse. Clinically, he looks much better today. He is awake and alert. He is eating breakfast. Labs, x-rays, and all medications are reviewed. We will continue to follow the patient, and make recommendations. Prognosis is cert ainly guarded. The patient was admitted from an outside hospital, with a diagnosis of sepsis, secondary to right lower extremity cellulitis, with hypotension. Dictation was produced using [employer] dictation software. Please excuse any grammatical, word or spelling errors. Time with Patient: Less than 30
[2024-11-20 12:06] LABS: Glucose,Whole Blood 112 mg/dL (70-110)
[2024-11-20] MEDS: FUROSEMIDE 10 MG/ML 4 ML VIAL IV STA (12:19)
--- NOTE | 2024-11-20 12:32 | P.PN ---
Subjective Progress Note Date: 11/20/24 Patient seen in follow-up for NIURKA. No new complaints today. Breathing improved. GENERAL: no distress. LUNGS: Unlabored breathing. Clear to auscultation anteriorly. No wheeze or crackle. HEART: S1, S2, regular rate and rhythm. ABDOMEN: Soft, no tenderness , guarding or rigidity EXTREMITIES: Right lower extremity edema with erythema Objective - Vital Signs Vital signs: Vital Signs Temp 97.7 F 11/20/24 04:25 Pulse 91 11/20/24 04:25 Resp 15 11/20/24 04:25 BP 129/78 11/20/24 04:25 Pulse Ox 97 11/20/24 04:25 FiO2 40 11/20/24 04:25 Intake & Output 11/19/24 11/20/24 11/20/24 18:59 06:59 18:59 Intake Total 240 Output Total 985 500 Balance -985 -260 Weight 95.5 kg 62.3 kg Intake: Oral 240 Output: Urine 985 500 Uretheral (Ott) 385 Other: Voiding Method Indwelling Catheter # Bowel Movements 1 - Labs CBC & Chem 7: 11/20/24 06:18 11/20/24 06:18 Labs: Abnormal Lab Results - Last 24 Hours (Table) 11/19/24 11/19/24 11/19/24 Range/Units 08:32 11:22 16:31 RBC (4.40-5.60) 10*6/uL Hgb (13.0-17.0) g/dL Hct (39.6-50.0) % ABG pH 7.26 L (7.35-7.45) ABG pCO2 52 H (35-45) mmHg ABG pO2 66 L (83-108) mmHg ABG Total CO2 25 H (19-24) mmol/L ABG O2 Saturation 89.7 L (94-97) % Sodium (137-145) mmol/L BUN (9-20) mg/dL Creatinine (0.66-1.25) mg/dL Glucose (74-99) mg/dL POC Glucose (mg/dL) 184 H 200 H (70-110) mg/dL 11/19/24 11/20/24 11/20/24 Range/Units 20:03 06:18 06:18 RBC 3.37 L (4.40-5.60) 10*6/uL Hgb 10.2 L (13.0-17.0) g/dL Hct 31.2 L (39.6-50.0) % ABG pH (7.35-7.45) ABG pCO2 (35-45) mmHg ABG pO2 (83-108) mmHg ABG Total CO2 (19-24) mmol/L ABG O2 Saturation (94-97) % Sodium 136 L (137-145) mmol/L BUN 27 H (9-20) mg/dL Creatinine 1.86 H (0.66-1.25) mg/dL Glucose 58 L (74-99) mg/dL POC Glucose (mg/dL) 122 H (70-110) mg/dL 11/20/24 Range/Units 06:20 RBC (4.40-5.60) 10*6/uL Hgb (13.0-17.0) g/dL Hct (39.6-50.0) % ABG pH (7.35-7.45) ABG pCO2 (35-45) mmHg ABG pO2 (83-108) mmHg ABG Total CO2 (19-24) mmol/L ABG O2 Saturation (94-97) % Sodium (137-145) mmol/L BUN (9-20) mg/dL Creatinine (0.66-1.25) mg/dL Glucose (74-99) mg/dL POC Glucose (mg/dL) 67 L (70-110) mg/dL Microbiology - Last 24 Hours (Table) 11/18/24 05:11 Blood Culture - Preliminary Blood Assessment and Plan Assessment: 1. Non-oliguric NIURKA 2/2 ATN related to sepsis and hypotension. Baseline creatinine 0.9 (2020). Presented creatinine 2.4, stable at 1.8 today. 2. LLE cellulitis with sepsis 3. Metabolic aacidosis related to NIURKA 4. Hypoxic respiratory failure related to fluid overload on Bipap Plan: Agree with holding IVF Ott placed for strict I/O's BP improved, will order another dose IV Lasix 40 mg today ABX per ID Daily BMP
--- NOTE | 2024-11-20 14:58 | P.PN ---
Subjective Progress Note Date: 11/20/24 Principal diagnosis: Reason for follow-up is sepsis and right leg cellulitis Patient is a 69-year-old male with a past medical history significant for Asthma, Blood Disorder, Heart Failure, Dementia, Diabetes Mellitus, Deep Vein Thrombosis (DVT), GERD/Reflux, Hyperlipidemia, Hypertension, Liver Disease, Osteoarthritis (OA), Vascular Disorder previous history of left rvcjr-qhm-reot amputation has been brought to the hospital for evaluation of altered mentation has been diagnosed with right lower extremity cellulitis with sepsis with the patient was transferred to this facility. On today's evaluation that is 11/20/2024, Patient is afebrile patient is currently on 2 L nasal oxygen and breathing more comfortably, the patient denies any chest pain or any worsening cough, the patient denies any nausea vomiting did not have any abdominal pain and no diarrhea, denies pain to the leg. Patient white count normal at 9.38, creatinine is 1.86 cultures currently pendin g Objective - Vital Signs Vital signs: Vital Signs Temp 98.8 F 11/20/24 12:15 Pulse 102 H 11/20/24 12:15 Resp 16 11/20/24 12:15 BP 127/71 11/20/24 12:15 Pulse Ox 93 L 11/20/24 12:15 FiO2 40 11/20/24 08:00 Intake & Output 11/19/24 11/20/24 11/20/24 18:59 06:59 18:59 Intake Total 240 600 Output Total 125 873 8588 Balance -985 -260 -2100 Weight 95.5 kg 62.3 kg Intake: Oral 240 600 Output: Urine 736 865 2528 Uretheral (Ott) 385 Other: Voiding Method Indwelling Catheter Indwelling Catheter # Bowel Movements 1 - Exam GENERAL DESCRIPTION: An elderly male lying in bed in no distress RESPIRATORY SYSTEM: Unlabored breathing , decreased breath sounds at bases HEART: S1 S2 regular rate and rhythm , ABDOMEN: Soft , no tenderness EXTREMITIES: Right leg swelling redness slightly decreased - Labs CBC & Chem 7: 11/20/24 06:18 11/20/24 06:18 Labs: Abnormal Lab Results - Last 24 Hours (Table) 11/19/24 11/19/24 11/19/24 Range/Units 08:32 16:31 20:03 RBC (4.40-5.60) 10*6/uL Hgb (13.0-17.0) g/dL Hct (39.6-50.0) % ABG pH 7.26 L (7.35-7.45) ABG pCO2 52 H (35-45) mmHg ABG pO2 66 L (83-108) mmHg ABG Total CO2 25 H (19-24) mmol/L ABG O2 Saturation 89.7 L (94-97) % Sodium (137-145) mmol/L BUN (9-20) mg/dL Creatinine (0.66-1.25) mg/dL Glucose (74-99) mg/dL POC Glucose (mg/dL) 200 H 122 H (70-110) mg/dL 11/20/24 11/20/24 11/20/24 Range/Units 06:18 06:18 06:20 RBC 3.37 L (4.40-5.60) 10*6/uL Hgb 10.2 L (13.0-17.0) g/dL Hct 31.2 L (39.6-50.0) % ABG pH (7.35-7.45) ABG pCO2 (35-45) mmHg ABG pO2 (83-108) mmHg ABG Total CO2 (19-24) mmol/L ABG O2 Saturation (94-97) % Sodium 136 L (137-145) mmol/L BUN 27 H (9-20) mg/dL Creatinine 1.86 H (0.66-1.25) mg/dL Glucose 58 L (74-99) mg/dL POC Glucose (mg/dL) 67 L (70-110) mg/dL 11/20/24 Range/Units 11:45 RBC (4.40-5.60) 10*6/uL Hgb (13.0-17.0) g/dL Hct (39.6-50.0) % ABG pH (7.35-7.45) ABG pCO2 (35-45) mmHg ABG pO2 (83-108) mmHg ABG Total CO2 (19-24) mmol/L ABG O2 Saturation (94-97) % Sodium (137-145) mmol/L BUN (9-20) mg/dL Creatinine (0.66-1.25) mg/dL Glucose (74-99) mg/dL POC Glucose (mg/dL) 112 H (70-110) mg/dL Microbiology - Last 24 Hours (Table) 11/18/24 05:11 Blood Culture - Preliminary Blood Assessment and Plan (1) Sepsis Current Visit: Yes Status: Acute Code(s): A41.9 - SEPSIS, UNSPECIFIED ORGANISM SNOMED Code(s): 52630590 (2) Cellulitis of right leg Current Visit: Yes Status: Acute Code(s): L03.115 - CELLULITIS OF RIGHT LOWER LIMB SNOMED Code(s): 46655467137880664 (3) Penicillin allergy Current Visit: Yes Status: Acute Code(s): Z88.0 - ALLERGY STATUS TO PENICILLIN SNOMED Code(s): 91393542 (4) Elevated serum creatinine Current Visit: Yes Status: Acute Code(s): R79.89 - OTHER SPECIFIED ABNORMAL FINDINGS OF BLOOD CHEMISTRY SNOMED Code(s): 958074450 Plan: 1patient presented to hospital with sepsis in this patient who did have fever tachycardia elevated white count elevated lactic acid meeting currently for SIRS/sepsis source likely right lower extremity cellulitis in this patient did have a history of left lower extremity infection requiring left dstha-unh-ehur amputation will need to cover for the resistant gram-positive as well as gram- negative pathogen 2-patient did have resolution of his fever the patient white normal his cultures been negative for any resistant pathogen so for 3we will go ahead and discontinue cefepime and vancomycin start the patient on cefazolin and monitor clinical course closely Dictation was produced using [employer] dictation software. please excuse any grammatical, word or spelling errors. Time with Patient: Less than 30
[2024-11-20 16:48] LABS: Glucose,Whole Blood 98 mg/dL (70-110)
[2024-11-20 21:09] LABS: Glucose,Whole Blood 79 mg/dL (70-110)
--- NOTE | 2024-11-20 21:11 | P.PN ---
Subjective Progress Note Date: 11/20/24 This is a 69-year-old male who presents from [facility] where he resides. Patient was sent down for [facility] for further evaluation. He was initially admitted there with lower extremity swelling, cellulitis and concern for sepsis. Patient has a past medical history of asthma, dementia, diabetes mellitus, DVT, heart failure, GERD, hypertension, hyperlipidemia, AAA, MRSA in the past, prior right of left eqrym-twj-wzbi amputation, orthopedic surgery, former smoker. There is also concern for right lower extremity cellulitis. Patient is a poor historian essentially is alert x 2 with confusion at times. This is his baseline. His chest x-ray reveals new internal jugular central venous catheter terminating the right atrium. He had an echocardiogram completed on admission which reveals an EF of 40 to 45% with mildly enlarged right ventricle. While in the ER he received vancomycin for the left right lower extremity cellulitis and was started on Levophed secondary to decreased pressures down to the 80s/40s. Concern for sepsis. He was admitted to the intensive care unit with pulmonology consultation. 11/19/2024 Patient is evaluated today in follow up. [facility] called this morning secondary to respiratory distress, altered mentation and hypertension. Patient was placed on BiPAP with 100% FiO2. Chest xray reveals vascular congestion. ProBNP elevated at 7290. Patient received IV lasix 40 mg x1. Renal function has improved to BUN 25, creatinine 1.80. White blood cell count 9.41. T-Max 100.3 in the last 24 hours. 11/20/2024 Patient evaluated today in follow up on the medical floor. Patient is awake alert and oriented today. Has been weaned off the BiPAP and currently on 3L of oxygen via nasal cannula. Fever has improved. Renal function remains stable BUN 27 creatinine 1.86. Magnesium 1.9. Blood pressure improved. Patient is status post IV lasix x 1. REVIEW OF SYSTEMS: CONSTITUTIONAL: No fever, no malaise, no fatigue. HEENT: No recent visual problems or hearing problems. Denied any sore throat. CARDIOVASCULAR: No chest pain, orthopnea, PND, no palpitations, no syncope. PULMONARY: No shortness of breath, no cough, no hemoptysis. GASTROINTESTINAL: No diarrhea, no nausea, no vomiting, no abdominal pain. NEUROLOGICAL: No headaches, no weakness, no numbness. PHYSICAL EXAMINATION: GENERAL: The patient is alert and oriented x3, not in any acute distress. Well developed, well nourished. HEENT: Pupils are round and equally reacting to light. EOMI. No scleral icterus. No conjunctival pallor. Normocephalic, atraumatic. No pharyngeal erythema. No thyromegaly. CARDIOVASCULAR: S1 and S2 present. No murmurs, rubs, or gallops. PULMONARY: Chest is clear to auscultation, no wheezing or crackles. ABDOMEN: Soft, nontender, nondistended, normoactive bowel sounds. No palpable organomegaly. MUSCULOSKELETAL: No joint swelling or deformity. EXTREMITIES: No cyanosis, clubbing, or pedal edema. Left iuyte-fmv-torf amputation NEUROLOGICAL: Gross neurological examination did not reveal any focal deficits. SKIN: No rashes. Erythema of the right lower extremity Assessment Right lower extremity cellulitis with sepsis and septic shock, POA Acute renal failure due to to ATN/sepsis Troponin elevation tyle II CT demand supply mismatch Mild acute CHF exacerbation; systolic dysfunction with EF 40-45% Diabetes Mellitus type 2 with hyperglycemia Hypomagnesemia Hx of hypertension hyperlipidemia AAA hx Hx of left lower extremity above the knee amputation Leukocytosis History of heart failure history of asthma History of DVT GERD GI prophylaxis DVT prophylaxis: anticoagulated with eliquis Full Code Plan Patient remains on the cardiac unit He was downgraded from the ICU levophed has been discontinued IV fluids discontinued and patient received IV lasix 40 mg x 1 again today Cardiology following; adjusting medications with discontinuation of carvedilol and patient has been started on oral metoprolol. Continue BiPAP support per pulmonology ID consulted Antibiotics have been adjusted to IV cefazolin and redness has improved to the RLE Pending blood cultures Repeat BMP/CBC The impression and plan of care has been dictated by Marjorie Machado Nurse Practitioner as directed. Dr. Gerardo MD I have performed a history and physical examination and medical decision making of this patient, discussed the same with the dictator, and agree with the dictators assessment and plan as written, documented as a scribe. Based on total visit time, I have performed more than 50% of this visit. Objective - Vital Signs Vital signs: Vital Signs Temp 97.7 F 11/20/24 04:25 Pulse 91 11/20/24 04:25 Resp 15 11/20/24 04:25 BP 129/78 11/20/24 04:25 Pulse Ox 97 11/20/24 04:25 FiO2 40 11/20/24 04:25 Intake & Output 11/19/24 11/20/24 11/20/24 18:59 06:59 18:59 Intake Total 240 Output Total 985 500 Balance -985 -260 Weight 95.5 kg 62.3 kg Intake: Oral 240 Output: Urine 985 500 Uretheral (Ott) 385 Other: Voiding Method Indwelling Catheter # Bowel Movements 1 - Labs CBC & Chem 7: 11/20/24 06:18 11/20/24 06:18 Labs: Abnormal Lab Results - Last 24 Hours (Table) 11/19/24 11/19/24 11/19/24 Range/Units 08:32 11:22 16:31 RBC (4.40-5.60) 10*6/uL Hgb (13.0-17.0) g/dL Hct (39.6-50.0) % ABG pH 7.26 L (7.35-7.45) ABG pCO2 52 H (35-45) mmHg ABG pO2 66 L (83-108) mmHg ABG Total CO2 25 H (19-24) mmol/L ABG O2 Saturation 89.7 L (94-97) % Sodium (137-145) mmol/L BUN (9-20) mg/dL Creatinine (0.66-1.25) mg/dL Glucose (74-99) mg/dL POC Glucose (mg/dL) 184 H 200 H (70-110) mg/dL 11/19/24 11/20/24 11/20/24 Range/Units 20:03 06:18 06:18 RBC 3.37 L (4.40-5.60) 10*6/uL Hgb 10.2 L (13.0-17.0) g/dL Hct 31.2 L (39.6-50.0) % ABG pH (7.35-7.45) ABG pCO2 (35-45) mmHg ABG pO2 (83-108) mmHg ABG Total CO2 (19-24) mmol/L ABG O2 Saturation (94-97) % Sodium 136 L (137-145) mmol/L BUN 27 H (9-20) mg/dL Creatinine 1.86 H (0.66-1.25) mg/dL Glucose 58 L (74-99) mg/dL POC Glucose (mg/dL) 122 H (70-110) mg/dL 11/20/24 Range/Units 06:20 RBC (4.40-5.60) 10*6/uL Hgb (13.0-17.0) g/dL Hct (39.6-50.0) % ABG pH (7.35-7.45) ABG pCO2 (35-45) mmHg ABG pO2 (83-108) mmHg ABG Total CO2 (19-24) mmol/L ABG O2 Saturation (94-97) % Sodium (137-145) mmol/L BUN (9-20) mg/dL Creatinine (0.66-1.25) mg/dL Glucose (74-99) mg/dL POC Glucose (mg/dL) 67 L (70-110) mg/dL Microbiology - Last 24 Hours (Table) 11/18/24 05:11 Blood Culture - Preliminary Blood Assessment and Plan Time with Patient: Less than 30
[2024-11-20] MEDS: HYDROcodone/APAP 10-325MG 1 EACH TAB PO PRN (21:20)
[2024-11-20 21:24] LABS: Glucose,Whole Blood 73 mg/dL (70-110)
[2024-11-20 21:50] LABS: Glucose,Whole Blood 105 mg/dL (70-110)
[2024-11-20] MEDS: INSULIN GLARGINE (LANTUS) 100 UNIT/ML SYR SQ ONE (22:53)
--- NOTE | 2024-11-20 23:32 | P.PN ---
Subjective Progress Note Date: 11/20/24 HISTORY OF PRESENTING ILLNESS: presents from [facility] where he resides secondary to al [facility] mentation PMH of type 2 diabetes, dementia asthma DVT, cardiomyopathy heart failure hypertension dyslipidemia AAA, above-knee amputation on the left, smoking history in the past. This time there was some concern of right lower extremity cellulitis. Poor historian. History is mostly obtained from the medical chart. Apparently he was at [facility] for right lower extremity swelling and cellulitis and concerns of sepsis. In hospital he became hypotensive and hypoxic and was placed on BiPAP and because of noncompliance with BiPAP and worsening hemodynamics he was transferred to [facility]. Cardiology was consulted for elevated troponin in setting of NIURKA which has been trending down as kidney function is improving Home cardiac medications Lasix 20 mg a.m. of 40 mg p.m., metoprolol 50 daily Plavix 75 fenofibrate 145 Coreg 6.25 twice daily Eliquis 5 twice daily ......................... ................................................................................ ..................................... Initial troponin 0.1, repeat 0.8, repeat 0.6 Admission creatinine 2.4 repeat 1.8 Hb 15, WBC 14 EKG shows sinus rhythm with nonspecific ST changes inferolateral leads. Heart rate 96 Chest x-ray shows mild increase interstitial markings cystoscopy mild fluid overload with mild infiltrates in the right lung. ........................................................................ ...................................................................... Prior cardiac testing: Echo from this admission shows EF of 45 to 50%, mildly enlarged RV, no major valvular dysfunction, no obvious regional wall motion abnormality reported No prior echo to compare with in database ........... ................................................................................ ................................................... Progress note 11/20/2024 BP 127/71, heart rate 96 bpm Sinus rhythm on exam with some intermittent sinus tachycardia noticed on telemetry Labs showed Hb 10.8, no signs of active bleeding, BUN 27, creatinine 1.86, current dose of IV Lasix with good urine output and improvement in lower extremity edema. # Sepsis is resolving blood pressure is improving. ................ ................................................................................ .............................................. PHYSICAL EXAMINATION: Neck: Brisk carotid upstroke, no jugular venous distention. Lungs: Poor inspiratory effort, mild crackles audible Heart: Regular rate and rhythm, S1-S2, , no murmur or rub. Abdomen: Soft nontender, positive bowel sounds. Extremities: No edema, intact distal pulses. Neuro: Confused. Detailed neuro exam was not performed. ............................ ................................................................................ .................................. 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 From tomorrow start him on p.o. Lasix 60 mg daily. If he can afford Farxiga discharge him on it. Appreciate nephrology recs Add low-dose lisinopril 2.5 mg daily, Objective - Vital Signs Vital signs: Vital Signs Temp 98.6 F 11/20/24 20:20 Pulse 96 11/20/24 20:20 Resp 18 11/20/24 20:20 BP 136/76 11/20/24 20:20 Pulse Ox 93 L 11/20/24 20:20 FiO2 40 11/20/24 08:00 Intake & Output 11/20/24 11/20/24 11/21/24 06:59 18:59 06:59 Intake Total 240 600 Output Total 500 3900 400 Balance -260 3300 -400 Weight 62.3 kg Intake: Oral 240 600 Output: Urine 500 3900 400 Other: Voiding Method Indwelling Catheter Indwelling Catheter Indwelling Catheter - Labs CBC & Chem 7: 11/20/24 06:18 11/20/24 06:18 Labs: Abnormal Lab Results - Last 24 Hours (Table) 11/20/24 11/20/24 11/20/24 Range/Units 06:18 06:18 06:20 RBC 3.37 L (4.40-5.60) 10*6/uL Hgb 10.2 L (13.0-17.0) g/dL Hct 31.2 L (39.6-50.0) % Sodium 136 L (137-145) mmol/L BUN 27 H (9-20) mg/dL Creatinine 1.86 H (0.66-1.25) mg/dL Glucose 58 L (74-99) mg/dL POC Glucose (mg/dL) 67 L (70-110) mg/dL 11/20/24 Range/Units 11:45 RBC (4.40-5.60) 10*6/uL Hgb (13.0-17.0) g/dL Hct (39.6-50.0) % Sodium (137-145) mmol/L BUN (9-20) mg/dL Creatinine (0.66-1.25) mg/dL Glucose (74-99) mg/dL POC Glucose (mg/dL) 112 H (70-110) mg/dL Microbiology - Last 24 Hours (Table) 11/18/24 05:11 Blood Culture - Preliminary Blood
[2024-11-21 01:59] LABS: Glucose,Whole Blood 57 mg/dL (70-110)
[2024-11-21 02:13] LABS: Glucose,Whole Blood 63 mg/dL (70-110)
[2024-11-21 02:30] LABS: Glucose,Whole Blood 92 mg/dL (70-110)
[2024-11-21 04:32] LABS: Glucose,Whole Blood 116 mg/dL (70-110)
[2024-11-21 05:51] LABS: Glucose,Whole Blood 121 mg/dL (70-110)
[2024-11-21 06:56] LABS: Basophils # (A) 0.04 10*3/uL (0.00-0.10); Basophils % (A) 0.4 %; Eosinophils # (A) 0.29 10*3/uL (0.04-0.35); Eosinophils % (A) 3.2 %; HCT 32.5 % (39.6-50.0); HGB 10.8 g/dL (13.0-17.0); Lymphocytes # (A) 1.32 10*3/uL (0.90-5.00); Lymphocytes % (A) 14.5 %; MCH 30.0 pg (27.0-32.0); MCHC 33.2 g/dL (32.0-37.0); MCV 90.3 fL (80.0-97.0); Monocytes # (A) 0.75 10*3/uL (0.20-1.00); Monocytes % (A) 8.2 %; Neutrophils # (A) 6.67 10*3/uL (1.80-7.70); Neutrophils % (A) 73.4 %; Platelet Count 251 10*3/uL (140-440); RBC 3.60 10*6/uL (4.40-5.60); RDW 14.6 % (11.5-14.5); WBC 9.10 10*3/uL (4.50-10.00)
[2024-11-21] MEDS ORDERED: VANCOMYCIN TROUGH DUE 1 EACH MISC MISCELLANE ONE (07:00)
[2024-11-21 07:09] LABS: ALT 25 U/L (4-49); AST 42 U/L (17-59); African American GFR (CKD) 54 (>60 ml/min/1.73 sqM); Albumin 3.2 g/dL (3.5-5.0); Alkaline Phosphatase 47 U/L (38-126); Anion Gap 10 mmol/L; Blood Urea Nitrogen 22 mg/dL (9-20); Calcium 8.8 mg/dL (8.4-10.2); Carbon Dioxide 25 mmol/L (22-30); Chloride 100 mmol/L (98-107); Glucose 100 mg/dL (74-99); Non-African American GFR(CKD) 46 (>60 ml/min/1.73 sqM); Potassium 4.1 mmol/L (3.5-5.1); Sodium 135 mmol/L (137-145); Total Protein 6.6 g/dL (6.3-8.2)
[2024-11-21 08:39] VITALS: RESP 16
[2024-11-21] MEDS: FUROSEMIDE 20 MG TAB PO SCH (08:39)
[2024-11-21] MEDS: METOPROLOL SUCCINATE (ER) 25 MG TAB.ER.24H PO SCH (08:40)
--- NOTE | 2024-11-21 10:45 | P.PN ---
Subjective Patient is seen in follow-up for acute kidney injury. Renal function improving. On oral Lasix. Has Ott catheter. Nonoliguric. Denies chest pain or shortness of breath. Vital signs are stable. General: No acute distress. HEENT: Head exam is unremarkable. LUNGS: No audible rhonchi or wheezes. HEART: Rate and Rhythm are regular. ABDOMEN: Nontender. EXTREMITITES: Left AKA. Right lower extremity erythema noted. 1+ edema. Objective - Vital Signs Vital signs: Vital Signs Temp 98 F 11/21/24 08:00 Pulse 95 11/21/24 08:00 Resp 16 11/21/24 08:00 BP 144/64 11/21/24 08:00 Pulse Ox 94 L 11/21/24 08:00 FiO2 40 11/20/24 08:00 Intake & Output 11/20/24 11/21/24 11/21/24 18:59 06:59 18:59 Intake Total 600 Output Total 3900 1050 700 Balance -3300 -1050 -700 Weight 97 kg Intake: Oral 600 Output: Urine 3900 1050 700 Other: Voiding Method Indwelling Catheter Indwelling Catheter - Labs CBC & Chem 7: 11/21/24 06:41 11/21/24 06:41 Labs: Abnormal Lab Results - Last 24 Hours (Table) 11/20/24 11/21/24 11/21/24 Range/Units 11:45 01:57 02:11 RBC (4.40-5.60) 10*6/uL Hgb (13.0-17.0) g/dL Hct (39.6-50.0) % Sodium (137-145) mmol/L BUN (9-20) mg/dL Creatinine (0.66-1.25) mg/dL Glucose (74-99) mg/dL POC Glucose (mg/dL) 112 H 57 L 63 L (70-110) mg/dL C-Reactive Protein (<1.0) mg/dL Albumin (3.5-5.0) g/dL 11/21/24 11/21/24 11/21/24 Range/Units 04:31 05:49 06:41 RBC 3.60 L (4.40-5.60) 10*6/uL Hgb 10.8 L (13.0-17.0) g/dL Hct 32.5 L (39.6-50.0) % Sodium (137-145) mmol/L BUN (9-20) mg/dL Creatinine (0.66-1.25) mg/dL Glucose (74-99) mg/dL POC Glucose (mg/dL) 116 H 121 H (70-110) mg/dL C-Reactive Protein (<1.0) mg/dL Albumin (3.5-5.0) g/dL 11/21/24 Range/Units 06:41 RBC (4.40-5.60) 10*6/uL Hgb (13.0-17.0) g/dL Hct (39.6-50.0) % Sodium 135 L (137-145) mmol/L BUN 22 H (9-20) mg/dL Creatinine 1.52 H (0.66-1.25) mg/dL Glucose 100 H (74-99) mg/dL POC Glucose (mg/dL) (70-110) mg/dL C-Reactive Protein 17.2 H (<1.0) mg/dL Albumin 3.2 L (3.5-5.0) g/dL Microbiology - Last 24 Hours (Table) 11/18/24 05:11 Blood Culture - Preliminary Blood Assessment and Plan Plan: Assessment: 1. Acute kidney injury secondary to ATN secondary to severe sepsis. Creatinine 0.9 in 2020. Creatinine peaked at 2.46 this admission and is 1.5 today. 2. Cardiomyopathy ejection fraction of 40 to 45%. 3. Right lower extremity cellulitis. ID following. 4. Status post left AKA. 5. Metabolic acidosis secondary to acute kidney injury. Improved. 6. Diabetes mellitus. 7. Mild volume overload. Plan: Maintain oral Lasix. Check UA. Check renal ultrasound. Avoid nephrotoxins. Continue to monitor renal function and urine output.
[2024-11-21 11:43] LABS: Glucose,Whole Blood 89 mg/dL (70-110)
[2024-11-21] MEDS ORDERED: ONDANSETRON 4 MG/2 ML VIAL IVP PRN (12:15)
--- NOTE | 2024-11-21 13:13 | US ---
EXAMINATION TYPE: US kidneys/renal and bladder DATE OF EXAM: 11/21/2024 COMPARISON: NONE CLINICAL INDICATION: Male, 69 years old with history of NIURKA; Abnormal labs. Bladder Ott. TECHNIQUE: Grayscale imaging of the bilateral kidneys and urinary bladder: FINDINGS: EXAM MEASUREMENTS: Right Kidney: 12.9 x 5.7 x 6.4 cm Left Kidney: 9.8 x 3.9 x 5.2 cm Right Kidney: No hydronephrosis or masses seen Left Kidney: 2.2 cm anechoic area at the hilum, either a parapelvic cyst or extrarenal pelvis. No irene yceal dilatation to suggest hydronephrosis. Bladder: not seen Bilateral Jets not see due to Ott IMPRESSION: No hydronephrosis. Either a 2.2 cm parapelvic cyst or extrarenal pelvis on the left. Bladder collapsed by Ott catheter. [facility], Workstation: [email or web address], 11/21/2024 1:11 PM
--- NOTE | 2024-11-21 13:44 | P.PN ---
Subjective Progress Note Date: 11/21/24 This is a 69-year-old gentleman with a past medical history of cardiomyopathy, hypertension, dyslipidemia, AAA, [id number] amputation of the left, diabetes mellitus type 2, dementia, asthma and DVT. Patient is a poor historian and HPI was mostly obtained from the chart. He presented from [facility] where he became hypotensive and hypoxic and was placed on BiPAP. He was then transferred here. We were consulted due to elevated troponins in the setting of acute kidney injury. Echocardiogram with Doppler study showed an ejection fraction of 45 to 50%, no significant valvular abnormalities and no obvious segmental wall motion abnormalities. PHYSICAL EXAMINATION: Neck: Brisk carotid upstroke, no jugular venous distention. Lungs: Poor inspiratory effort, mild crackles audible Heart: Regular rate and rhythm, S1-S2, , no murmur or rub. Abdomen: Soft nontender, positive bowel sounds. Extremities: No edema, intact distal pulses. Neuro: Confused. Detailed neuro exam was not performed. 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 From our standpoint patient may be discharged once cleared by primary. PAID INTERN note has been reviewed, I agree with a documented findings and plan of care. Patient was seen and examined. Objective - Vital Signs Vital signs: Vital Signs Temp 98.2 F 11/21/24 12:00 Pulse 95 11/21/24 12:00 Resp 16 11/21/24 12:00 BP 134/69 11/21/24 12:00 Pulse Ox 92 L 11/21/24 12:00 FiO2 40 11/20/24 08:00 Intake & Output 11/20/24 11/21/24 11/21/24 18:59 06:59 18:59 Intake Total 600 Output Total 3900 1050 1500 Balance -3300 -1050 -1500 Weight 97 kg Intake: Oral 600 Output: Urine 3900 1050 1500 Other: Voiding Method Indwelling Catheter Indwelling Catheter - Labs CBC & Chem 7: 11/21/24 06:41 11/21/24 06:41 Labs: Abnormal Lab Results - Last 24 Hours (Table) 11/21/24 11/21/24 11/21/24 Range/Units 01:57 02:11 04:31 RBC (4.40-5.60) 10*6/uL Hgb (13.0-17.0) g/dL Hct (39.6-50.0) % Sodium (137-145) mmol/L BUN (9-20) mg/dL Creatinine (0.66-1.25) mg/dL Glucose (74-99) mg/dL POC Glucose (mg/dL) 57 L 63 L 116 H (70-110) mg/dL C-Reactive Protein (<1.0) mg/dL Albumin (3.5-5.0) g/dL 11/21/24 11/21/24 11/21/24 Range/Units 05:49 06:41 06:41 RBC 3.60 L (4.40-5.60) 10*6/uL Hgb 10.8 L (13.0-17.0) g/dL Hct 32.5 L (39.6-50.0) % Sodium 135 L (137-145) mmol/L BUN 22 H (9-20) mg/dL Creatinine 1.52 H (0.66-1.25) mg/dL Glucose 100 H (74-99) mg/dL POC Glucose (mg/dL) 121 H (70-110) mg/dL C-Reactive Protein 17.2 H (<1.0) mg/dL Albumin 3.2 L (3.5-5.0) g/dL Microbiology - Last 24 Hours (Table) 11/18/24 05:11 Blood Culture - Preliminary Blood
[2024-11-21 16:51] LABS: Glucose,Whole Blood 129 mg/dL (70-110)
--- NOTE | 2024-11-21 18:14 | P.PN ---
Subjective Progress Note Date: 11/21/24 69-year-old male seen today in the emergency department, room 6. The patient was transferred down from an outside hospital. He apparently came in with weakness, mental status changes, and possible sepsis. He apparently has a history of diabetes, peripheral vascular disease, with a left AKA, hypertension, chronic kidney disease, and cellulitis of the right lower extremity. He apparently was seen at the outside facility and diagnosed with sepsis secondary to right lower extremity cellulitis. The patient's white count was elevated as well as his lactic acid. The patient became hypotensive, and was transferred down to this institution. A central line was placed. In the emergency department, he is currently on 2 L, with a saturation 98%. He is getting lactated Ringer's at 130 cc an hour, he is currently on cefepime and vancomycin, and is getting norepinephrine at 0.04 mcg/kg/min. White count is 14.8, hemoglobin 15.6, macro 47.1, platelet count 193,000. Sodium 136, potassium 4.6, chlorides 105, CO2 22, anion gap 9, BUN 34, and creatinine 2.46. Glucose is 261. Troponins were 0.116 and 0.080. Chest x-ray shows a properly placed central line, and a possible infiltrate or atelectasis at the left base. Progress note dated November 19, 2024. 69-year-old male who was seen yesterday in consultation in the emergency department. He was shipped down from an outside hospital, for sepsis, secondary to cellulitis of the right leg, with hypotension, requiring norepinephrine. The patient was seen in the emergency department, and was on a small dose of norepinephrine, and it was weaned off, and the patient was downgraded to the general medical floor. This morning, he apparently developed some respiratory distress. The charge nurse in the ICU went up on the rapid response teamrosemarie that the patient would benefit from BiPAP, and Lasix. That was given. In addition, blood gas was done. The patient is seen in room 375. He continues on BiPAP, with settings of 14/7 and 80%. A Ott catheter was placed. A blood gas was done and Lasix was given. He continues on vancomycin and cefepime for the cellulitis. Blood gases show pO2 of 66, pCO2 52, and a pH of 7.25. Will check a procalcitonin level, and an N-terminal proBNP. White count was 9.4, hemoglobin 11.2, hematocrit 34.4, platelet count 253,000. Sodium 135, potassium 4.5, chlorides 106, CO2 19, anion gap 10, BUN 25, creatinine 1.80. Glucose is 115. Albumin 3.4. N-terminal proBNP was quite elevated at 7290. Progress note dated November 20, 2024. 69-year-old male seen today in room 375. He looks a whole lot better today than he did yesterday. He did use BiPAP all night, with settings of 14/7 and 40%. He continues on vancomycin and cefepime. No IV fluids. He is currently only on 2 L of oxygen. He is actually sitting in bed, eating his breakfast. He looks again much improved. Current laboratory data includes a white count of 9.4, hemoglobin 10.2, hematocrit 31.2, and a normal platelet count. Sodium 136, potassium 4.1, chloride 105, CO2 22, BUN 27, creatinine 1.86. Glucose is 58. Calcium 8.8, magnesium 1.9. On 11/21/2024, the patient is being seen for a follow-up. The patient is resting comfortably in bed and the patient denies having any specific complaints. The patient was transferred to us from an outside hospital for generalized weakness and altered mentation and sepsis. The patient is diabetic and has peripheral vascular disease and previous left AKA along with chronic kidney disease, and hypertension and the patient had a cellulitis of the right lower extremity. For now, the patient is on IV cefazolin. Cellulitis is improving. He is hemodynamically stable. He remains on Lantus insulin 65 units twice daily and NovoLog sliding scale coverage for blood sugar control. He remains on Plavix 75 mg p.o. daily and the patient is also on anticoagulation with Eliquis. Rest of the medications remain unchanged. Blood cultures been negative thus far. Most recent blood work shows a white cell count of 9.1 with a heme of 10.8 and a platelet count of 251. BUN is 22 with a creatinine of 1.5 consistent with chronic kidney disease and the patient had a component of acute kidney injury on top of his chronic kidney failure and the creatinine continues to improve and the sodium levels at 135. He is currently on room air oxygen with a pulse ox of 91%. Ultrasound of the kidneys showed no evidence of any hydronephrosis. Objective - Vital Signs Vital signs: Vital Signs Temp 98 F 11/21/24 08:00 Pulse 91 11/21/24 08:00 Resp 16 11/21/24 08:00 BP 144/64 11/21/24 08:00 Pulse Ox 94 L 11/21/24 08:00 FiO2 40 11/20/24 08:00 Intake & Output 11/20/24 11/21/24 11/21/24 18:59 06:59 18:59 Intake Total 600 Output Total 3900 1050 1500 Balance -3300 -1050 -1500 Weight 97 kg Intake: Oral 600 Output: Urine 3900 1050 1500 Other: Voiding Method Indwelling Catheter Indwelling Catheter - Exam No acute distress, currently on room air oxygen,, comfortable, body mass 30.7 HEENT examination is grossly unremarkable. Mucous membranes are moist. No oral lesions. Neck supple. Full range of motion. No adenopathy thyromegaly or neck vein distention. Cardiovascular examination reveals regular rhythm rate. S1-S2 normal. No S3 or S4. No discernible murmur noted. Heart sounds are very distant. Lungs reveal much improved breath sounds. Few scattered rhonchi. No wheezes. No crackles. Breath sounds are equal bilaterally. Abdomen soft bowel sounds are heard. No masses or tenderness. Extremities reveals a left [id number] amputation. Right lower extremity has evidence of cellulitis which is improving. Skin reveals cellulitis of the right lower extremity. Neurologic examination is brief but nonfocal. - Labs CBC & Chem 7: 11/21/24 06:41 11/21/24 06:41 Labs: Abnormal Lab Results - Last 24 Hours (Table) 11/20/24 11/21/24 11/21/24 Range/Units 11:45 01:57 02:11 RBC (4.40-5.60) 10*6/uL Hgb (13.0-17.0) g/dL Hct (39.6-50.0) % Sodium (137-145) mmol/L BUN (9-20) mg/dL Creatinine (0.66-1.25) mg/dL Glucose (74-99) mg/dL POC Glucose (mg/dL) 112 H 57 L 63 L (70-110) mg/dL C-Reactive Protein (<1.0) mg/dL Albumin (3.5-5.0) g/dL 11/21/24 11/21/24 11/21/24 Range/Units 04:31 05:49 06:41 RBC 3.60 L (4.40-5.60) 10*6/uL Hgb 10.8 L (13.0-17.0) g/dL Hct 32.5 L (39.6-50.0) % Sodium (137-145) mmol/L BUN (9-20) mg/dL Creatinine (0.66-1.25) mg/dL Glucose (74-99) mg/dL POC Glucose (mg/dL) 116 H 121 H (70-110) mg/dL C-Reactive Protein (<1.0) mg/dL Albumin (3.5-5.0) g/dL 11/21/24 Range/Units 06:41 RBC (4.40-5.60) 10*6/uL Hgb (13.0-17.0) g/dL Hct (39.6-50.0) % Sodium 135 L (137-145) mmol/L BUN 22 H (9-20) mg/dL Creatinine 1.52 H (0.66-1.25) mg/dL Glucose 100 H (74-99) mg/dL POC Glucose (mg/dL) (70-110) mg/dL C-Reactive Protein 17.2 H (<1.0) mg/dL Albumin 3.2 L (3.5-5.0) g/dL Microbiology - Last 24 Hours (Table) 11/18/24 05:11 Blood Culture - Preliminary Blood Assessment and Plan Plan: Right lower extremity cellulitis, with resultant sepsis, and hypotension, improving and the patient is currently on IV cefazolin Sepsis, secondary to above, improved Congestive heart failure, currently inactive and stable, echocardiogram revealing mild impairment LV function with ejection fraction of 40 to 45% Hypertension. Hyperlipidemia. History of diabetes mellitus. History of dementia. History of deep vein thrombosis. Left [id number] amputation. Diverticular disease. Prior history of methicillin-resistant Staph aureus infection. Multiple other medical problems and comorbidities. Plan: Patient is currently on room air oxygen. Patient is maintained on IV cefazolin and the cellulitis is also improving in the right lower extremity Continue Lasix 60 mg p.o. daily Renal function continues to improve Continue Plavix Continue anticoagulation with Eliquis Continue Lantus insulin 65 units twice daily and NovoLog sliding scale coverage. Continue Zestril 2.5 mg p.o. daily and close monitoring of the renal function Toprol 25 mg p.o. daily Lipitor 40 mg p.o. daily Echocardiogram on 11/18/2024 shows reduced LV function with an ejection fraction of 40 to 45%, mild enlargement of the right ventricle.
[2024-11-21 19:50] LABS: Glucose,Whole Blood 193 mg/dL (70-110)
[2024-11-21] MEDS: ATORVASTATIN 40 MG TAB PO SCH (20:48)
--- NOTE | 2024-11-21 22:25 | P.PN ---
Subjective Progress Note Date: 11/21/24 This is a 69-year-old male who presents from [facility] where he resides. Patient was sent down for [facility] for further evaluation. He was initially admitted there with lower extremity swelling, cellulitis and concern for sepsis. Patient has a past medical history of asthma, dementia, diabetes mellitus, DVT, heart failure, GERD, hypertension, hyperlipidemia, AAA, MRSA in the past, prior right of left gauib-cao-pohf amputation, orthopedic surgery, former smoker. There is also concern for right lower extremity cellulitis. Patient is a poor historian essentially is alert x 2 with confusion at times. This is his baseline. His chest x-ray reveals new internal jugular central venous catheter terminating the right atrium. He had an echocardiogram completed on admission which reveals an EF of 40 to 45% with mildly enlarged right ventricle. While in the ER he received vancomycin for the left right lower extremity cellulitis and was started on Levophed secondary to decreased pressures down to the 80s/40s. Concern for sepsis. He was admitted to the intensive care unit with pulmonology consultation. 11/19/2024 Patient is evaluated today in follow up. Ateam called this morning secondary to respiratory distress, altered mentation and hypertension. Patient was placed on BiPAP with 100% FiO2. Chest xray reveals vascular congestion. ProBNP elevated at 7290. Patient received IV lasix 40 mg x1. Renal function has improved to BUN 25, creatinine 1.80. White blood cell count 9.41. T-Max 100.3 in the last 24 hours. 11/20/2024 Patient evaluated today in follow up on the medical floor. Patient is awake alert and oriented today. Has been weaned off the BiPAP and currently on 3L of oxygen via nasal cannula. Fever has improved. Renal function remains stable BUN 27 creatinine 1.86. Magnesium 1.9. Blood pressure improved. Patient is status post IV lasix x 1. 11/21/2024 Patient evaluated today in follow up on the medical floor. Awake alert oriented x 3. He has been weaned off oxygen and currently maintaining oxygen saturations at 97%. Right lower extremity erythema continues to improve. Status post IV lasix x 2 doses and has been started on oral lasix daily. Renal function improved BUN 22, creatinine 1.52. Renal ultrasound reveals no hydronephrosis. Blood culture remains negative. REVIEW OF SYSTEMS: CONSTITUTIONAL: No fever, no malaise, no fatigue. HEENT: No recent visual problems or hearing problems. Denied any sore throat. CARDIOVASCULAR: No chest pain, orthopnea, PND, no palpitations, no syncope. PULMONARY: No shortness of breath, no cough, no hemoptysis. GASTROINTESTINAL: No diarrhea, no nausea, no vomiting, no abdominal pain. NEUROLOGICAL: No headaches, no weakness, no numbness. PHYSICAL EXAMINATION: GENERAL: The patient is alert and oriented x3, not in any acute distress. Well developed, well nourished. HEENT: Pupils are round and equally reacting to light. EOMI. No scleral icterus. No conjunctival pallor. Normocephalic, atraumatic. No pharyngeal erythema. No thyromegaly. CARDIOVASCULAR: S1 and S2 present. No murmurs, rubs, or gallops. PULMONARY: Chest is clear to auscultation, no wheezing or crackles. ABDOMEN: Soft, nontender, nondistended, normoactive bowel sounds. No palpable organomegaly. MUSCULOSKELETAL: No joint swelling or deformity. EXTREMITIES: No cyanosis, clubbing, or pedal edema. Left mfogm-ggb-lfxt amputation NEUROLOGICAL: Gross neurological examination did not reveal any focal deficits. SKIN: No rashes. 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 Patient has been weaned to room air Antibiotics have been adjusted to IV cefazolin and redness has improved to the RLE Pending blood cultures negative so far Patient is being followed by multiple consultations including pulmonology, cardiology, infectious disease and nephrology Repeat BMP/CBC Return to [facility] on discharge, social work following The impression and plan of care has been dictated by Marjorie Machado Nurse Practitioner as directed. Dr. Gerardo MD I have performed a history and physical examination and medical decision making of this patient, discussed the same with the dictator, and agree with the dictators assessment and plan as written, documented as a scribe. Based on total visit time, I have performed more than 50% of this visit. Objective - Vital Signs Vital signs: Vital Signs Temp 98.9 F 11/21/24 20:00 Pulse 91 11/21/24 20:00 Resp 16 11/21/24 20:00 BP 145/72 11/21/24 20:00 Pulse Ox 94 L 11/21/24 20:00 FiO2 40 11/20/24 08:00 Intake & Output 11/21/24 11/21/24 11/22/24 06:59 18:59 06:59 Intake Total 240 Output Total 1050 2900 Balance -1050 -2660 Weight 97 kg Intake: Oral 240 Output: Urine 1050 2900 Other: Voiding Method Indwelling Catheter Indwelling Catheter - Labs CBC & Chem 7: 11/21/24 06:41 11/21/24 06:41 Labs: Abnormal Lab Results - Last 24 Hours (Table) 11/21/24 11/21/24 11/21/24 Range/Units 01:57 02:11 04:31 RBC (4.40-5.60) 10*6/uL Hgb (13.0-17.0) g/dL Hct (39.6-50.0) % Sodium (137-145) mmol/L BUN (9-20) mg/dL Creatinine (0.66-1.25) mg/dL Glucose (74-99) mg/dL POC Glucose (mg/dL) 57 L 63 L 116 H (70-110) mg/dL C-Reactive Protein (<1.0) mg/dL Albumin (3.5-5.0) g/dL 11/21/24 11/21/24 11/21/24 Range/Units 05:49 06:41 06:41 RBC 3.60 L (4.40-5.60) 10*6/uL Hgb 10.8 L (13.0-17.0) g/dL Hct 32.5 L (39.6-50.0) % Sodium 135 L (137-145) mmol/L BUN 22 H (9-20) mg/dL Creatinine 1.52 H (0.66-1.25) mg/dL Glucose 100 H (74-99) mg/dL POC Glucose (mg/dL) 121 H (70-110) mg/dL C-Reactive Protein 17.2 H (<1.0) mg/dL Albumin 3.2 L (3.5-5.0) g/dL 11/21/24 11/21/24 Range/Units 16:50 19:48 RBC (4.40-5.60) 10*6/uL Hgb (13.0-17.0) g/dL Hct (39.6-50.0) % Sodium (137-145) mmol/L BUN (9-20) mg/dL Creatinine (0.66-1.25) mg/dL Glucose (74-99) mg/dL POC Glucose (mg/dL) 129 H 193 H (70-110) mg/dL C-Reactive Protein (<1.0) mg/dL Albumin (3.5-5.0) g/dL Microbiology - Last 24 Hours (Table) 11/18/24 05:11 Blood Culture - Preliminary Blood Assessment and Plan Time with Patient: Less than 30
[2024-11-22 06:09] LABS: Glucose,Whole Blood 105 mg/dL (70-110)
[2024-11-22 07:21] LABS: African American GFR (CKD) 46 (>60 ml/min/1.73 sqM); Anion Gap 11 mmol/L; Blood Urea Nitrogen 21 mg/dL (9-20); Calcium 9.3 mg/dL (8.4-10.2); Carbon Dioxide 27 mmol/L (22-30); Chloride 101 mmol/L (98-107); Glucose 105 mg/dL (74-99); Magnesium 2.2 mg/dL (1.6-2.3); Non-African American GFR(CKD) 40 (>60 ml/min/1.73 sqM); Potassium 3.8 mmol/L (3.5-5.1); Sodium 139 mmol/L (137-145)
--- NOTE | 2024-11-22 09:36 | P.PN ---
Subjective Progress Note Date: 11/22/24 This is a 69-year-old gentleman with a past medical history of cardiomyopathy, hypertension, dyslipidemia, AAA, pabto-txd-vhjw amputation of the left, diabetes mellitus type 2, dementia, asthma and DVT. Patient is a poor historian and HPI was mostly obtained from the chart. He presented from [facility] where he became hypotensive and hypoxic and was placed on BiPAP. He was then transferred here. We were consulted due to elevated troponins in the setting of acute kidney injury. Echocardiogram with Doppler study showed an ejection fraction of 45 to 50%, no significant valvular abnormalities and no obvious segmental wall motion abnormalities. 11/22/2024 Patient was seen and examined resting comfortably in bed. Denies any chest discomfort or difficulty breathing. Renal function and vital signs are stable. PHYSICAL EXAMINATION: Neck: Brisk carotid upstroke, no jugular venous distention. Lungs: Poor inspiratory effort, mild crackles audible Heart: Regular rate and rhythm, S1-S2, , no murmur or rub. Abdomen: Soft nontender, positive bowel sounds. Extremities: No edema, intact distal pulses. Neuro: Confused. Detailed neuro exam was not performed. 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 Will follow the patient on an as-needed basis. Please do not hesitate to call us with questions. CARD LACER JACQUARD note has been reviewed, I agree with a documented findings and plan of care. Patient was seen and examined. Objective - Vital Signs Vital signs: Vital Signs Temp 98.3 F 11/22/24 03:15 Pulse 82 11/22/24 03:15 Resp 16 11/22/24 03:15 BP 122/65 11/22/24 03:15 Pulse Ox 94 L 11/22/24 03:15 FiO2 40 11/20/24 08:00 Intake & Output 11/21/24 11/22/24 11/22/24 18:59 06:59 18:59 Intake Total 240 Output Total 2900 250 Balance -2660 -250 Weight 62.5 kg Intake: Oral 240 Output: Urine 2900 250 Other: Voiding Method Indwelling Catheter - Labs CBC & Chem 7: 11/21/24 06:41 11/22/24 06:17 Labs: Abnormal Lab Results - Last 24 Hours (Table) 11/21/24 11/21/24 11/22/24 Range/Units 16:50 19:48 06:17 BUN 21 H (9-20) mg/dL Creatinine 1.72 H (0.66-1.25) mg/dL Glucose 105 H (74-99) mg/dL POC Glucose (mg/dL) 129 H 193 H (70-110) mg/dL Microbiology - Last 24 Hours (Table) 11/18/24 05:11 Blood Culture - Preliminary Blood
--- NOTE | 2024-11-22 10:23 | P.PN ---
Subjective Patient is seen in follow-up for acute kidney injury. Renal function slightly worse today. On oral Lasix. Has Ott catheter. Nonoliguric. Denies chest pain or shortness of breath. Vital signs are stable. General: No acute distress. HEENT: Head exam is unremarkable. LUNGS: No audible rhonchi or wheezes. HEART: Rate and Rhythm are regular. ABDOMEN: Nontender. EXTREMITITES: Left AKA. Right lower extremity erythema noted. 1+ edema. Objective - Vital Signs Vital signs: Vital Signs Temp 98.3 F 11/22/24 03:15 Pulse 82 11/22/24 03:15 Resp 16 11/22/24 03:15 BP 122/65 11/22/24 03:15 Pulse Ox 94 L 11/22/24 03:15 FiO2 40 11/20/24 08:00 Intake & Output 11/21/24 11/22/24 11/22/24 18:59 06:59 18:59 Intake Total 240 240 Output Total 2900 250 Balance -2660 -250 240 Weight 62.5 kg Intake: Oral 240 240 Output: Urine 2900 250 Other: Voiding Method Indwelling Catheter - Labs CBC & Chem 7: 11/21/24 06:41 11/22/24 06:17 Labs: Abnormal Lab Results - Last 24 Hours (Table) 11/21/24 11/21/24 11/22/24 Range/Units 16:50 19:48 06:17 BUN 21 H (9-20) mg/dL Creatinine 1.72 H (0.66-1.25) mg/dL Glucose 105 H (74-99) mg/dL POC Glucose (mg/dL) 129 H 193 H (70-110) mg/dL Microbiology - Last 24 Hours (Table) 11/18/24 05:11 Blood Culture - Preliminary Blood Assessment and Plan Plan: Assessment: 1. Acute kidney injury secondary to ATN secondary to severe sepsis. Creatinine 0.9 in 2020. Creatinine peaked at 2.46 this admission and is 1.72 today. Renal function worsened from diuresis. No hydronephrosis noted on ultrasound. 2. Cardiomyopathy ejection fraction of 40 to 45%. 3. Right lower extremity cellulitis. ID following. 4. Status post left AKA. 5. Metabolic acidosis secondary to acute kidney injury. Improved. 6. Diabetes mellitus. 7. Mild volume overload. Plan: Maintain oral Lasix. Add low-dose maintenance potassium supplementation. Follow-up UA. Avoid nephrotoxins. Continue to monitor renal function and urine output. Repeat BMP and magnesium level 2 to 3 days postdischarge. Follow-up outpatient 1 to 2 weeks postdischarge.
[2024-11-22 10:47] LABS: Bilirubin,Urine Negative (Negative); Blood,Urine Small (Negative); Color,Urine Colorless; Glucose,Urine (UA) 1+ (Negative); Ketones,Urine Negative (Negative); Leukocyte Esterase,Urine Moderate (Negative); Mucus,Urine Rare /hpf; Nitrite,Urine Negative (Negative); PH, Urine 6.0 (5.0-8.0); Protein,Urine 1+ (Negative); RBC,Urine 5 /hpf (0-5); Specific Gravity,Urine 1.008 (1.001-1.035); Urobilinogen,Urine <2.0 mg/dL (<2.0); WBC,Urine 25 /hpf (0-5)
[2024-11-22 11:45] LABS: Glucose,Whole Blood 142 mg/dL (70-110)
[2024-11-22 12:02] VITALS: BP 153/68; PULSE 75; TEMP 97.5
--- NOTE | 2024-11-22 13:29 | P.PN ---
Subjective Progress Note Date: 11/21/24 Principal diagnosis: Reason for follow-up is sepsis and right leg cellulitis Patient is a 69-year-old male with a past medical history significant for Asthma, Blood Disorder, Heart Failure, Dementia, Diabetes Mellitus, Deep Vein Thrombosis (DVT), GERD/Reflux, Hyperlipidemia, Hypertension, Liver Disease, Osteoarthritis (OA), Vascular Disorder previous history of left xklsc-qxy-[id number] amputation has been brought to the hospital for evaluation of altered mentation has been diagnosed with right lower extremity cellulitis with sepsis with the patient was transferred to this facility. On today's evaluation that is 11/21/2024, patient has been afebrile, patient is currently on 3 L nasal oxygen has been complaining of more shortness of breath but denies any chest pain or worsening cough no nausea vomiting no abdominal pain or diarrhea right lower extremity swelling redness decreased denies pain to the right leg. The patient white count is normal at 9.10 creatinine is 1.52 blood cultures so far negative Objective - Vital Signs Vital signs: Vital Signs Temp 98.2 F 11/21/24 12:00 Pulse 95 11/21/24 12:00 Resp 16 11/21/24 12:00 BP 134/69 11/21/24 12:00 Pulse Ox 92 L 11/21/24 12:00 FiO2 40 11/20/24 08:00 Intake & Output 11/20/24 11/21/24 11/21/24 18:59 06:59 18:59 Intake Total 600 240 Output Total 3900 1050 2300 Balance -3300 -1050 -2060 Weight 97 kg Intake: Oral 600 240 Output: Urine 3900 1050 2300 Other: Voiding Method Indwelling Catheter Indwelling Catheter - Exam GENERAL DESCRIPTION: An elderly male lying in bed in no distress RESPIRATORY SYSTEM: Unlabored breathing , decreased breath sounds at bases HEART: S1 S2 regular rate and rhythm , ABDOMEN: Soft , no tenderness EXTREMITIES: Right leg swelling redness slightly decreased - Labs CBC & Chem 7: 11/21/24 06:41 11/22/24 06:17 Labs: Abnormal Lab Results - Last 24 Hours (Table) 11/21/24 11/21/24 11/21/24 Range/Units 01:57 02:11 04:31 RBC (4.40-5.60) 10*6/uL Hgb (13.0-17.0) g/dL Hct (39.6-50.0) % Sodium (137-145) mmol/L BUN (9-20) mg/dL Creatinine (0.66-1.25) mg/dL Glucose (74-99) mg/dL POC Glucose (mg/dL) 57 L 63 L 116 H (70-110) mg/dL C-Reactive Protein (<1.0) mg/dL Albumin (3.5-5.0) g/dL 11/21/24 11/21/24 11/21/24 Range/Units 05:49 06:41 06:41 RBC 3.60 L (4.40-5.60) 10*6/uL Hgb 10.8 L (13.0-17.0) g/dL Hct 32.5 L (39.6-50.0) % Sodium 135 L (137-145) mmol/L BUN 22 H (9-20) mg/dL Creatinine 1.52 H (0.66-1.25) mg/dL Glucose 100 H (74-99) mg/dL POC Glucose (mg/dL) 121 H (70-110) mg/dL C-Reactive Protein 17.2 H (<1.0) mg/dL Albumin 3.2 L (3.5-5.0) g/dL Microbiology - Last 24 Hours (Table) 11/18/24 05:11 Blood Culture - Preliminary Blood Assessment and Plan (1) Sepsis Current Visit: Yes Status: Acute Code(s): A41.9 - SEPSIS, UNSPECIFIED ORGANISM SNOMED Code(s): 26405055 (2) Cellulitis of right leg Current Visit: Yes Status: Acute Code(s): L03.115 - CELLULITIS OF RIGHT LOWER LIMB SNOMED Code(s): 35166069701217790 (3) Penicillin allergy Current Visit: Yes Status: Acute Code(s): Z88.0 - ALLERGY STATUS TO PENICILLIN SNOMED Code(s): 36069173 (4) Elevated serum creatinine Current Visit: Yes Status: Acute Code(s): R79.89 - OTHER SPECIFIED ABNORMAL FINDINGS OF BLOOD CHEMISTRY SNOMED Code(s): 188835666 Plan: 1patient presented to hospital with sepsis in this patient who did have fever tachycardia elevated white count elevated lactic acid meeting currently for SIRS/sepsis source likely right lower extremity cellulitis in this patient did have a history of left lower extremity infection requiring left cmfxn-pql-kgwp amputation will need to cover for the resistant gram-positive as well as gram- negative pathogen 2-patient did have resolution of his fever the patient white normal his cultures been negative for any resistant pathogen. 3patient continued to improve on cefazolin as for his right lower extremity cellulitis continue while inpatient will transition to oral antibiotics on discharge Dictation was produced using [employer] dictation software. please excuse any grammatical, word or spelling errors.
--- NOTE | 2024-11-22 13:30 | P.PN ---
Subjective Progress Note Date: 11/22/24 Principal diagnosis: Reason for follow-up is sepsis and right leg cellulitis Patient is a 69-year-old male with a past medical history significant for Asthma, Blood Disorder, Heart Failure, Dementia, Diabetes Mellitus, Deep Vein Thrombosis (DVT), GERD/Reflux, Hyperlipidemia, Hypertension, Liver Disease, Osteoarthritis (OA), Vascular Disorder previous history of left mcifk-ggz-tyjf amputation has been brought to the hospital for evaluation of altered mentation has been diagnosed with right lower extremity cellulitis with sepsis with the patient was transferred to this facility. On today's evaluation that is 11/22/2024, Patient is afebrile this morning patient denies having any chest pain breathing more comfortably no significant cough, the patient is currently on room air, patient denies any abdominal pain no diarrhea no nausea no vomiting and denies pain to the right leg. Patient did have a creatinine 1.72 no CBC was done today white count normal blood culture negative Objective - Vital Signs Vital signs: Vital Signs Temp 97.5 F L 11/22/24 11:59 Pulse 75 11/22/24 11:59 Resp 16 11/22/24 11:59 BP 153/68 11/22/24 11:59 Pulse Ox 96 11/22/24 11:59 FiO2 40 11/20/24 08:00 Intake & Output 11/21/24 11/22/24 11/22/24 18:59 06:59 18:59 Intake Total 240 240 Output Total 2900 250 425 Balance -2660 -250 -185 Weight 62.5 kg Intake: Oral 240 240 Output: Urine 2900 250 425 Uretheral (Ott) 425 Other: Voiding Method Indwelling Catheter - Exam GENERAL DESCRIPTION: An elderly male lying in bed in no distress RESPIRATORY SYSTEM: Unlabored breathing , decreased breath sounds at bases HEART: S1 S2 regular rate and rhythm , ABDOMEN: Soft , no tenderness EXTREMITIES: Right leg swelling redness slightly decreased - Labs CBC & Chem 7: 11/21/24 06:41 11/22/24 06:17 Labs: Abnormal Lab Results - Last 24 Hours (Table) 11/21/24 11/21/24 11/22/24 Range/Units 16:50 19:48 06:17 BUN 21 H (9-20) mg/dL Creatinine 1.72 H (0.66-1.25) mg/dL Glucose 105 H (74-99) mg/dL POC Glucose (mg/dL) 129 H 193 H (70-110) mg/dL Urine Protein (Negative) Urine Glucose (UA) (Negative) Urine Blood (Negative) Ur Leukocyte Esterase (Negative) Urine WBC (0-5) /hpf Urine Mucus (None) /hpf 11/22/24 11/22/24 Range/Units 10:05 11:43 BUN (9-20) mg/dL Creatinine (0.66-1.25) mg/dL Glucose (74-99) mg/dL POC Glucose (mg/dL) 142 H (70-110) mg/dL Urine Protein 1+ H (Negative) Urine Glucose (UA) 1+ H (Negative) Urine Blood Small H (Negative) Ur Leukocyte Esterase Moderate H (Negative) Urine WBC 25 H (0-5) /hpf Urine Mucus Rare H (None) /hpf Microbiology - Last 24 Hours (Table) 11/18/24 05:11 Blood Culture - Preliminary Blood Assessment and Plan (1) Sepsis Current Visit: Yes Status: Acute Code(s): A41.9 - SEPSIS, UNSPECIFIED ORGANI SM SNOMED Code(s): 46140676 (2) Cellulitis of right leg Current Visit: Yes Status: Acute Code(s): L03.115 - CELLULITIS OF RIGHT LOWER LIMB SNOMED Code(s): 55297594376508725 (3) Penicillin allergy Current Visit: Yes Status: Acute Code(s): Z88.0 - ALLERGY STATUS TO PENICILLIN SNOMED Code(s): 63073935 (4) Elevated serum creatinine Current Visit: Yes Status: Acute Code(s): R79.89 - OTHER SPECIFIED ABNORMAL FINDINGS OF BLOOD CHEMISTRY SNOMED Code(s): 817189925 Plan: 1patient presented to hospital with sepsis in this patient who did have fever tachycardia elevated white count elevated lactic acid meeting currently for SIRS/sepsis source likely right lower extremity cellulitis in this patient did have a history of left lower extremity infection requiring left qqtka-euc-lrlr amputation will need to cover for the resistant gram-positive as well as gram- negative pathogen 2-patient did have resolution of his fever the patient white normal his cultures been negative for any resistant pathogen. 3patient continued to improve on cefazolin as for his right lower extremity cellulitis will finish therapy with 7-day course of oral Keflex on discharge, this was discussed with SENIOR SQL DEVELOPER for admitting team Dictation was produced using [employer] dictation software. please excuse any grammatical, word or spelling errors. Time with Patient: Less than 30
--- NOTE | 2024-11-22 13:47 | P.DS ---
Providers Date of admission: 11/18/24 05:40 Attending physician: Malvin Warner Consults: 11/18/24 05:38 Consult Physician Routine Consulting Provider: [facility] Consult Reason/Comments: elevated troponin Do you want consulting provider notified?: Yes Consult Physician Routine Consulting Provider: Negrito Bush Consult Reason/Comments: septic shock, cellulitis Do you want consulting provider notified?: Yes Consult Physician Stat Consulting Provider: Antonio Garcia Consult Reason/Comments: septic shock, icu care Do you want consulting provider notified?: Already Contacted 11/19/24 08:19 Consult Physician Stat Consulting Provider: Simona Shukla Consult Reason/Comments: arf, fluid overload Do you want consulting provider notified?: Yes Primary care physician: Alexander Salcido Hospital Course: Final Diagnosis Right lower extremity cellulitis with sepsis and septic shock, POA Acute renal failure due to to ATN/sepsis Troponin elevation tyle II FL demand supply mismatch Mild acute CHF exacerbation; systolic dysfunction with EF 40-45% Acute hypoxemic respiratory failure secondary to above Diabetes Mellitus type 2 with hyperglycemia Hypomagnesemia Hx of hypertension hyperlipidemia AAA hx 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 Continue on oral lasix 60 mg daily. Continue oral keflex 500 mg QID for the next 7 days and recommend close follow up with ID on discharge. Patient has been weaned down to oxygen via nasal cannula at 2L. He is awake alert and oriented. His RLE cellulitis has improved. He is requesting to be discharge. He will require close follow up with pulmonology, cardiology, nephrology and infectious disease. Repeat labs 2 to 3 days. Total time taken in discharge planning greater than 35 minutes. Would recommend to hold the metformin secondary to the renal dysfunction. He is on small dose of lisinopril 2.5 mg daily. Monitor renal function. Patient will be transported with indwelling buchanan catheter and voiding trial can be completed at accepting facility. Hospital Course This is a 69-year-old male who presents from [facility] where he resides. Patient was sent down for [facility] for further evaluation. He was initially admitted there with lower extremity swelling, cellulitis and concern for sepsis. Patient has a past medical history of asthma, dementia, diabetes mellitus, DVT, heart failure, GERD, hypertension, hyperlipidemia, AAA, MRSA in the past, prior right of left [id number] amputation, orthopedic surgery, former smoker. There is also concern for right lower extremity cellulitis. Patient is a poor historian essentially is alert x 2 with confusion at times. This is his baseline. His chest x-ray reveals new internal jugular central venous catheter terminating the right atrium. He had an echocardiogram completed on admission which reveals an EF of 40 to 45% with mildly enlarged right ventricle. While in the ER he received vancomycin for the left right lower extremity cellulitis and was started on Levophed secondary to decreased pressures down to the 80s/40s. Concern for sepsis. He was admitted to the intensive care unit with pulmonology consultation. His blood pressure improved was taken off the levophed and blood pressures holding in the 120s systolic. He had episode of respiratory distress requiring BiPAP support, found to have mild vascular congestion was diuresed with lasix and has now been weaned to room air. His antibiotics adjusted to cefazolin and had clinical improvement of the right lower extremity cellulitis. He had elevated renal function with BUN 34, creatinine 2.46 and renal function has improved down to BUN of 21 creatinine 1.72. He was transitioned to oral lasix. He will be transitioned to oral antibiotics. He has been cleared for DC back to [facility]. Please see medication reconciliation for a list of current medications. Thank you for allowing us to participate in the care of this patient. The impression and plan of care has been dictated by Marjorie Machado, Nurse Practitioner as directed. Dr. Gerardo MD I have performed a history and physical examination and medical decision making of this patient, discussed the same with the dictator, and agree with the dictators assessment and plan as written, documented as a scribe. Based on total visit time, I have performed more than 50% of this visit. Patient Condition at Discharge: Fair Plan - Discharge Summary New Discharge Prescriptions: New Potassium Chloride ER [K-Dur 10] 10 meq PO DAILY tab Furosemide [Lasix] 60 mg PO DAILY tab Metoprolol Succinate (ER) [Toprol XL] 25 mg PO BID tab Cephalexin [Keflex] 500 mg PO Q6HR 7 Days #28 cap Atorvastatin [Lipitor] 40 mg PO HS tab lisinopriL [Zestril] 2.5 mg PO DAILY tab Continue Ferrous Sulfate [Iron (65 MG Elemental)] 325 mg PO DAILY Clopidogrel [Plavix] 75 mg PO DAILY@1200 Semaglutide [Ozempic] 0.5 mg SQ FR@1700 Insulin Aspart (Niacinamide) [Fiasp 100 Unit/ml Vial] 4 units SQ TID@1100,1700,2100 Daily Radha 1 tab PO DAILY Menthol [Biofreeze] 1 applic TOPICAL Q8H PRN PRN Reason: SHOULDER PAIN Insulin Degludec [Insulin Degludec Pen (U-100)] 65 units SQ BID@1200,2000 Fenofibrate Nanocrystallized [Tricor] 145 mg PO HS Melatonin 5 mg PO HS Bethanechol Chloride 25 mg PO TID@1100,1700,2100 Pantoprazole [Protonix] 40 mg PO DAILY@1100 Apixaban [Eliquis] 5 mg PO BID@1200,1700 metFORMIN HCL 1,000 mg PO BID@1200,1700 Acetaminophen Tab [Tylenol] 650 mg PO BID@1200,2100 Magnesium Hydroxide [Milk of Magnesia Concentrate] 30 ml PO DAILY PRN PRN Reason: Constipation Zinc Gluconate [Zinc] 50 mg PO DAILY@1200 [place]-3/Dha/Epa/Fish Oil [Fish Oil 1,000 mg Softgel] 1 cap PO BID@1200,2100 Dextran/Hypromellose/Glycerin [Genteal Tears 0.1%-0.2%-0.3%] 1 drop BOTH EYES Q2H PRN PRN Reason: Dry Eye(S) Biotene Dry Mouth/Throat Lozenge 1 lozenge PO DIRECTED PRN PRN Reason: Dry Mouth Acetaminophen [Tylenol] 650 mg PO Q4H PRN PRN Reason: GENERAL DISCOMFORT Eucerin Plus Lotion 1 applic TOPICAL BID HYDROcodone/APAP 10-325MG [[place] 10-325] 1 tab PO Q8HR PRN #4 tab PRN Reason: Pain Discontinued Furosemide [Lasix] 40 mg PO DAILY@1200 Furosemide [Lasix] 20 mg PO DAILY@1700 Metoprolol Succinate (ER) [Toprol Xl] 50 mg PO DAILY@1100 Gabapentin 600 mg PO BID@1100,1700 carvediloL [Coreg] 6.25 mg PO BID@1200,1700 Discharge Medication List Acetaminophen Tab [Tylenol] 650 mg PO BID@1200,2100 09/09/24 [History] Apixaban [Eliquis] 5 mg PO BID@1200,169901/18/24 [History] Bethanechol Chloride 25 mg PO TID@1100,1699,209901/18/24 [History] Clopidogrel [Plavix] 75 mg PO DAILY@119901/18/24 [History] Daily Radha 1 tab PO DAILY 01/18/24 [History] Ferrous Sulfate [Iron (65 MG Elemental)] 325 mg PO DAILY 01/18/24 [History] Insulin Aspart (Niacinamide) [Fiasp 100 Unit/ml Vial] 4 units SQ TID@1100,170,209901/18/24 [History] Magnesium Hydroxide [Milk of Magnesia Concentrate] 30 ml PO DAILY PRN 01/18/24 [History] [place]-3/Dha/Epa/Fish Oil [Fish Oil 1,000 mg Softgel] 1 cap PO BID@1199,209901/18/24 [History] Pantoprazole [Protonix] 40 mg PO DAILY@109901/18/24 [History] Semaglutide [Ozempic] 0.5 mg SQ FR@169901/18/24 [History] Zinc Gluconate [Zinc] 50 mg PO DAILY@119901/18/24 [History] metFORMIN HCL 1,000 mg PO BID@1199,169901/18/24 [History] Acetaminophen [Tylenol] 650 mg PO Q4H PRN 11/18/24 [History] Biotene Dry Mouth/Throat Lozenge 1 lozenge PO DIRECTED PRN 11/18/24 [History] Dextran/Hypromellose/Glycerin [Genteal Tears 0.1%-0.2%-0.3%] 1 drop BOTH EYES Q2H PRN 11/18/24 [History] Eucerin Plus Lotion 1 applic TOPICAL BID 11/18/24 [History] Fenofibrate Nanocrystallized [Tricor] 145 mg PO HS 11/18/24 [History] Insulin Degludec [Insulin Degludec Pen (U-100)] 65 units SQ BID@1199,199911/18/24 [History] Melatonin 5 mg PO HS 11/18/24 [History] Menthol [Biofreeze] 1 applic TOPICAL Q8H PRN 11/18/24 [History] Atorvastatin [Lipitor] 40 mg PO HS tab 11/22/24 [Rx] Cephalexin [Keflex] 500 mg PO Q6HR 7 Days #28 cap 11/22/24 [Rx] Furosemide [Lasix] 60 mg PO DAILY tab 11/22/24 [Rx] HYDROcodone/APAP 10-325MG [[place] 10-325] 1 tab PO Q8HR PRN #4 tab 11/22/24 [Rx] Metoprolol Succinate (ER) [Toprol XL] 25 mg PO BID tab 11/22/24 [Rx] Potassium Chloride ER [K-Dur 10] 10 meq PO DAILY tab 11/22/24 [Rx] lisinopriL [Zestril] 2.5 mg PO DAILY tab 11/22/24 [Rx] Follow up Appointment(s)/Referral(s): Kei Hu MD [Medical Doctor] - 1 Week Alexander Salcido MD [Primary Care Provider] - 1-2 days Mata Narvaez DO [STAFF PHYSICIAN] - 1 Week Negrito Bush MD [STAFF PHYSICIAN] - 1 Week Ambulatory/Diagnostic Orders: Basic Metabolic Panel [LAB.AMB] Time Frame: 3 Days, Location: None Selected Complete Blood Count w/diff [LAB.AMB] Location: None Selected Activity/Diet/Wound Care/Special Instructions: Recommend to follow up with glass crusher, museum docent, and infectious disease on discharge Follow up with Dr Salcido Repeat labs 2 to 3 days Discharge Disposition: TRANSFER TO SNF/ECF
--- NOTE | 2024-11-22 14:07 | P.PN ---
Subjective Progress Note Date: 11/22/24 69-year-old male seen today in the emergency department, room 6. The patient was transferred down from an outside hospital. He apparently came in with weakness, mental status changes, and possible sepsis. He apparently has a history of diabetes, peripheral vascular disease, with a left AKA, hypertension, chronic kidney disease, and cellulitis of the right lower extremity. He apparently was seen at the outside facility and diagnosed with sepsis secondary to right lower extremity cellulitis. The patient's white count was elevated as well as his lactic acid. The patient became hypotensive, and was transferred down to this institution. A central line was placed. In the emergency department, he is currently on 2 L, with a saturation 98%. He is getting lactated Ringer's at 130 cc an hour, he is currently on cefepime and vancomycin, and is getting norepinephrine at 0.04 mcg/kg/min. White count is 14.8, hemoglobin 15.6, macro 47.1, platelet count 193,000. Sodium 136, potassium 4.6, chlorides 105, CO2 22, anion gap 9, BUN 34, and creatinine 2.46. Glucose is 261. Troponins were 0.116 and 0.080. Chest x-ray shows a properly placed central line, and a possible infiltrate or atelectasis at the left base. Progress note dated November 19, 2024. 69-year-old male who was seen yesterday in consultation in the emergency department. He was shipped down from an outside hospital, for sepsis, secondary to cellulitis of the right leg, with hypotension, requiring norepinephrine. The patient was seen in the emergency department, and was on a small dose of norepinephrine, and it was weaned off, and the patient was downgraded to the general medical floor. This morning, he apparently developed some respiratory distress. The charge nurse in the ICU went up on the rapid response teamrosemarie that the patient would benefit from BiPAP, and Lasix. That was given. In addition, blood gas was done. The patient is seen in room 375. He continues on BiPAP, with settings of 14/7 and 80%. A Ott catheter was placed. A blood gas was done and Lasix was given. He continues on vancomycin and cefepime for the cellulitis. Blood gases show pO2 of 66, pCO2 52, and a pH of 7.25. Will check a procalcitonin level, and an N-terminal proBNP. White count was 9.4, hemoglobin 11.2, hematocrit 34.4, platelet count 253,000. Sodium 135, potassium 4.5, chlorides 106, CO2 19, anion gap 10, BUN 25, creatinine 1.80. Glucose is 115. Albumin 3.4. N-terminal proBNP was quite elevated at 7290. Progress note dated November 20, 2024. 69-year-old male seen today in room 375. He looks a whole lot better today than he did yesterday. He did use BiPAP all night, with settings of 14/7 and 40%. He continues on vancomycin and cefepime. No IV fluids. He is currently only on 2 L of oxygen. He is actually sitting in bed, eating his breakfast. He looks again much improved. Current laboratory data includes a white count of 9.4, hemoglobin 10.2, hematocrit 31.2, and a normal platelet count. Sodium 136, potassium 4.1, chloride 105, CO2 22, BUN 27, creatinine 1.86. Glucose is 58. Calcium 8.8, magnesium 1.9. On 11/21/2024, the patient is being seen for a follow-up. The patient is resting comfortably in bed and the patient denies having any specific complaints. The patient was transferred to us from an outside hospital for generalized weakness and altered mentation and sepsis. The patient is diabetic and has peripheral vascular disease and previous left AKA along with chronic kidney disease, and hypertension and the patient had a cellulitis of the right lower extremity. For now, the patient is on IV cefazolin. Cellulitis is improving. He is hemodynamically stable. He remains on Lantus insulin 65 units twice daily and NovoLog sliding scale coverage for blood sugar control. He remains on Plavix 75 mg p.o. daily and the patient is also on anticoagulation with Eliquis. Rest of the medications remain unchanged. Blood cultures been negative thus far. Most recent blood work shows a white cell count of 9.1 with a heme of 10.8 and a platelet count of 251. BUN is 22 with a creatinine of 1.5 consistent with chronic kidney disease and the patient had a component of acute kidney injury on top of his chronic kidney failure and the creatinine continues to improve and the sodium levels at 135. He is currently on room air oxygen with a pulse ox of 91%. Ultrasound of the kidneys showed no evidence of any hydronephrosis. On 11/22/2024, the patient is being seen for a follow-up. The patient is stable and is resting comfortably in bed. [facility] His pulse ox 96% room air oxygen. Remains on IV cefazolin. The sodium levels at 139 with a potassium level of 3.8, BUN is 20 with a creatinine of 1.7 and the patient has a component of chronic kidney disease. He remains on IV cefazolin. He remains on Lasix milligrams p.o. daily. He remains on Lantus 65 units twice a day and NovoLog sliding scale coverage. Rest of the medications are essentially unchanged. He is on Toprol 25 mg p.o. twice daily and Zestril 2.5 mg p.o. daily. Remains on anticoagulation with Eliquis and remains on Lipitor. No altered mentation. Cellulitis of the right lower extremity is improved considerably. Objective - Vital Signs Vital signs: Vital Signs Temp 98.3 F 11/22/24 03:15 Pulse 82 11/22/24 03:15 Resp 16 11/22/24 03:15 BP 122/65 11/22/24 03:15 Pulse Ox 94 L 11/22/24 03:15 FiO2 40 11/20/24 08:00 Intake & Output 11/21/24 11/22/24 11/22/24 18:59 06:59 18:59 Intake Total 240 240 Output Total 2900 250 425 Balance -2660 -250 -185 Weight 62.5 kg Intake: Oral 240 240 Output: Urine 2900 250 425 Uretheral (Ott) 425 Other: Voiding Method Indwelling Catheter - Exam No acute distress, currently on room air oxygen,, comfortable, body mass 30.7 HEENT examination is grossly unremarkable. Mucous membranes are moist. No oral lesions. Neck supple. Full range of motion. No adenopathy thyromegaly or neck vein distention. Cardiovascular examination reveals regular rhythm rate. S1-S2 normal. No S3 or S4. No discernible murmur noted. Heart sounds are very distant. Lungs reveal much improved breath sounds. Few scattered rhonchi. No wheezes. No crackles. Breath sounds are equal bilaterally. Abdomen soft bowel sounds are heard. No masses or tenderness. Extremities reveals a left ckjko-pxy-[id number] amputation. Right lower extremity has evidence of cellulitis which is improving. Skin reveals cellulitis of the right lower extremity. Neurologic examination is brief but nonfocal. - Labs CBC & Chem 7: 11/21/24 06:41 11/22/24 06:17 Labs: Abnormal Lab Results - Last 24 Hours (Table) 11/21/24 11/21/24 11/22/24 Range/Units 16:50 19:48 06:17 BUN 21 H (9-20) mg/dL Creatinine 1.72 H (0.66-1.25) mg/dL Glucose 105 H (74-99) mg/dL POC Glucose (mg/dL) 129 H 193 H (70-110) mg/dL Microbiology - Last 24 Hours (Table) 11/18/24 05:11 Blood Culture - Preliminary Blood Assessment and Plan Plan: Right lower extremity cellulitis, with resultant sepsis, and hypotension, improving and the patient is currently on IV cefazolin, clinically improved and there is some minimal residual erythema involving the right lower extremity. Yet, there is no signs of any ongoing septicemia at this point. Sepsis, secondary to above, improved Congestive heart failure, currently inactive and stable, echocardiogram revealing mild impairment LV function with ejection fraction of 40 to 45% Hypertension. Hyperlipidemia. History of diabetes mellitus. History of dementia. History of deep vein thrombosis. Left [id number] amputation. Diverticular disease. Prior history of methicillin-resistant Staph aureus infection. Multiple other medical problems and comorbidities. Plan: Patient is currently on room air oxygen. Patient is maintained on IV cefazolin and the cellulitis is also improving in the right lower extremity, consider switching this patient to oral antibiotics per ID. Continue Lasix 60 mg p.o. daily Renal function continues to improve Continue Plavix Continue anticoagulation with Eliquis Continue Lantus insulin 65 units twice daily and NovoLog sliding scale coverage. Continue Zestril 2.5 mg p.o. daily and close monitoring of the renal function Toprol 25 mg p.o. daily Lipitor 40 mg p.o. daily Echocardiogram on 11/18/2024 shows reduced LV function with an ejection fraction of 40 to 45%, mild enlargement of the right ventricle.
[2024-11-23] MEDS ORDERED: POTASSIUM CHLORIDE ER 10 MEQ TAB.ER.PRT PO SCH (09:00)
== END 2024-11-22 15:41 | DRG 871 ==
LOC: EC 04:41 → 2SICU 05:40 → 3SCARD 15:02
PROVIDERS: ADMIT Hospitalist; ATTEND Hospitalist
PROC: 5A09457 Assistance with Respiratory Ventilation, 24-96 Consecutive Hours, Continuous Positive Airway Pressure (ICD-10-PCS; principal; 2024-11-18)
DX: A41.9 Sepsis, unspecified organism (principal); I21.A1 Myocardial infarction type 2; I50.23 Acute on chronic systolic (congestive) heart failure; N17.0 Acute kidney failure with tubular necrosis; R65.21 Severe sepsis with septic shock; J96.91 Respiratory failure, unspecified with hypoxia; J96.01 Acute respiratory failure with hypoxia; I42.9 Cardiomyopathy, unspecified; I13.0 Hypertensive heart and chronic kidney disease with heart failure and stage 1 through stage 4 chronic kidney disease, or unspecified chronic kidney disease; E11.65 Type 2 diabetes mellitus with hyperglycemia; J45.909 Unspecified asthma, uncomplicated; F32.A Depression, unspecified; N18.9 Chronic kidney disease, unspecified; K76.0 Fatty (change of) liver, not elsewhere classified; L03.115 Cellulitis of right lower limb; E87.20 Acidosis, unspecified; L03.116 Cellulitis of left lower limb; Z89.612 Acquired absence of left leg above knee; Z79.4 Long term (current) use of insulin; E11.22 Type 2 diabetes mellitus with diabetic chronic kidney disease; E11.51 Type 2 diabetes mellitus with diabetic peripheral angiopathy without gangrene; E83.42 Hypomagnesemia; E78.5 Hyperlipidemia, unspecified; Z86.718 Personal history of other venous thrombosis and embolism; K21.9 Gastro-esophageal reflux disease without esophagitis; Z88.0 Allergy status to penicillin; Z88.1 Allergy status to other antibiotic agents; Z91.030 Bee allergy status; Z87.19 Personal history of other diseases of the digestive system; K57.30 Diverticulosis of large intestine without perforation or abscess without bleeding; M19.90 Unspecified osteoarthritis, unspecified site; Z79.01 Long term (current) use of anticoagulants; Z79.02 Long term (current) use of antithrombotics/antiplatelets; Z79.84 Long term (current) use of oral hypoglycemic drugs; Z79.899 Other long term (current) drug therapy; Z86.14 Personal history of Methicillin resistant Staphylococcus aureus infection; Z86.79 Personal history of other diseases of the circulatory system; Z87.891 Personal history of nicotine dependence; Z91.199 Patient's noncompliance with other medical treatment and regimen due to unspecified reason; Z91.041 Radiographic dye allergy status; Z91.013 Allergy to seafood
CPT/HCPCS: 36415; 36600; 51798; 71045; 74018; 76770; 80048; 80053; 81001; 82805; 83605; 83735; 83880; 84484; 85025; 86140; 87040; 93005; 93306; 94660; 94760; 96365; 96366; 96367; 96368; 96375; 99291